=== PATIENT | male | born 1965 | race Caucasian/White ===

== ENCOUNTER → 2019-11-08 11:16 | Outpatient (BNVA) | payer OTHER, SELFPAY | PROVIDERS: Family Provider Emergency Medicine Emergency Medical Services; PCP Emergency Medicine Emergency Medical Services; Visit Provider Specialist | DX: G43.711 Chronic migraine without aura, intractable, with status migrainosus (principal) | CPT/HCPCS: 64615; J0585 ==

== ENCOUNTER → 2020-02-07 08:42 | Outpatient (BNVA) | payer OTHER, SELFPAY | PROVIDERS: Family Provider Emergency Medicine Emergency Medical Services; PCP Emergency Medicine Emergency Medical Services; Visit Provider Specialist | DX: G43.711 Chronic migraine without aura, intractable, with status migrainosus (principal) | CPT/HCPCS: 64615; J0585 ==

== ENCOUNTER → 2020-05-01 09:19 | Outpatient (BNVA) | payer OTHER, SELFPAY | PROVIDERS: Family Provider Emergency Medicine Emergency Medical Services; PCP Emergency Medicine Emergency Medical Services; Visit Provider Specialist | DX: G43.711 Chronic migraine without aura, intractable, with status migrainosus (principal) | CPT/HCPCS: 64615; J0585 ==

== ENCOUNTER → 2020-09-11 10:49 | Outpatient (BNVA) | payer OTHER, SELFPAY | PROVIDERS: Family Provider Emergency Medicine Emergency Medical Services; PCP Emergency Medicine Emergency Medical Services; Visit Provider Specialist | DX: G43.711 Chronic migraine without aura, intractable, with status migrainosus (principal) | CPT/HCPCS: 64615; J0585 ==

== ENCOUNTER → 2020-12-04 11:01 | Outpatient (BNVA) | payer OTHER, SELFPAY | PROVIDERS: Family Provider Emergency Medicine Emergency Medical Services; PCP Emergency Medicine Emergency Medical Services; Visit Provider Specialist | DX: G43.711 Chronic migraine without aura, intractable, with status migrainosus (principal) | CPT/HCPCS: 64615; J0585 ==

== ENCOUNTER → 2021-02-26 12:39 | Outpatient (BNVA) | payer OTHER, SELFPAY | PROVIDERS: Family Provider Emergency Medicine Emergency Medical Services; PCP Emergency Medicine Emergency Medical Services; Visit Provider Specialist | DX: G43.709 Chronic migraine without aura, not intractable, without status migrainosus (principal) | CPT/HCPCS: 64615; J0585 ==

== ENCOUNTER → 2021-03-25 09:18 | Outpatient (BNVA) | payer OTHER, SELFPAY | PROVIDERS: Family Provider Emergency Medicine Emergency Medical Services; PCP Emergency Medicine Emergency Medical Services; Referring Provider Emergency Medicine Emergency Medical Services; Visit Provider Specialist | DX: M19.011 Primary osteoarthritis, right shoulder (principal); M25.511 Pain in right shoulder | CPT/HCPCS: 73030 ==

== ENCOUNTER → 2021-05-21 12:08 | Outpatient (BNVA) | payer OTHER, SELFPAY | PROVIDERS: Family Provider Emergency Medicine Emergency Medical Services; PCP Emergency Medicine Emergency Medical Services; Visit Provider Specialist | DX: G43.709 Chronic migraine without aura, not intractable, without status migrainosus (principal) | CPT/HCPCS: 64615; J0585 ==

== ENCOUNTER → 2021-08-13 12:17 | Outpatient (BNVA) | payer OTHER, SELFPAY | PROVIDERS: Family Provider Emergency Medicine Emergency Medical Services; PCP Emergency Medicine Emergency Medical Services; Visit Provider Specialist | DX: G43.709 Chronic migraine without aura, not intractable, without status migrainosus (principal) | CPT/HCPCS: 64615; J0585 ==

== ENCOUNTER → 2021-12-10 13:02 | Outpatient (BNVA) | payer OTHER, SELFPAY | PROVIDERS: Family Provider Emergency Medicine Emergency Medical Services; PCP Emergency Medicine Emergency Medical Services; Visit Provider Specialist | DX: G43.711 Chronic migraine without aura, intractable, with status migrainosus (principal) | CPT/HCPCS: 64615 ==

== ENCOUNTER → 2022-02-25 09:13 | Outpatient (BNVA) | payer OTHER, SELFPAY | PROVIDERS: Family Provider Emergency Medicine Emergency Medical Services; PCP Emergency Medicine Emergency Medical Services; Visit Provider Specialist | DX: M25.511 Pain in right shoulder (principal); M25.512 Pain in left shoulder; Z71.89 Other specified counseling | CPT/HCPCS: 20610 ==

== ENCOUNTER → 2022-03-25 14:24 | Outpatient (BNVA) | payer OTHER, SELFPAY | PROVIDERS: Family Provider Emergency Medicine Emergency Medical Services; PCP Emergency Medicine Emergency Medical Services; Visit Provider Specialist | DX: G43.711 Chronic migraine without aura, intractable, with status migrainosus (principal) | CPT/HCPCS: 64615; J0585 ==

== ENCOUNTER → 2022-04-19 08:03 | Outpatient (BNVA) | payer OTHER, SELFPAY | PROVIDERS: Family Provider Emergency Medicine Emergency Medical Services; PCP Emergency Medicine Emergency Medical Services; Referring Provider Emergency Medicine Emergency Medical Services; Visit Provider Podiatrist Foot & Ankle Surgery | DX: I73.9 Peripheral vascular disease, unspecified (principal); L60.3 Nail dystrophy; L30.9 Dermatitis, unspecified; M79.671 Pain in right foot; M79.672 Pain in left foot | CPT/HCPCS: 99204 ==

== ENCOUNTER → 2022-05-27 10:13 | Outpatient (BNVA) | payer MEDICARE, OTHER, SELFPAY | PROVIDERS: Family Provider Emergency Medicine Emergency Medical Services; PCP Emergency Medicine Emergency Medical Services; Visit Provider Specialist | DX: M25.511 Pain in right shoulder (principal); M25.512 Pain in left shoulder | CPT/HCPCS: 20610; J1100; J2795; J3301 ==

== ENCOUNTER → 2022-07-01 14:05 | Outpatient (BNVA) | payer OTHER, SELFPAY | PROVIDERS: Family Provider Emergency Medicine Emergency Medical Services; PCP Emergency Medicine Emergency Medical Services; Visit Provider Specialist | DX: G43.711 Chronic migraine without aura, intractable, with status migrainosus (principal); M54.2 Cervicalgia | CPT/HCPCS: 64615; 99213; J0585 ==

== ENCOUNTER → 2022-08-09 11:36 | Outpatient (BNVA) | payer OTHER, SELFPAY | PROVIDERS: Family Provider Emergency Medicine Emergency Medical Services; PCP Emergency Medicine Emergency Medical Services; Visit Provider Podiatrist Foot & Ankle Surgery | DX: I73.9 Peripheral vascular disease, unspecified (principal); L60.3 Nail dystrophy | CPT/HCPCS: 99213 ==

== ENCOUNTER → 2022-09-09 10:03 | Outpatient (BNVA) | payer OTHER, SELFPAY | PROVIDERS: Family Provider Emergency Medicine Emergency Medical Services; PCP Emergency Medicine Emergency Medical Services; Visit Provider Specialist | DX: M19.011 Primary osteoarthritis, right shoulder (principal) | CPT/HCPCS: 20610; J1100; J2795; J3301 ==

== ENCOUNTER → 2022-09-23 13:54 | Outpatient (BNVA) | payer OTHER, SELFPAY | PROVIDERS: Family Provider Emergency Medicine Emergency Medical Services; PCP Emergency Medicine Emergency Medical Services; Visit Provider Specialist | DX: G43.711 Chronic migraine without aura, intractable, with status migrainosus (principal); M54.2 Cervicalgia | CPT/HCPCS: 64615; 95911; 99212; J0585 ==

== ENCOUNTER → 2022-12-02 11:22 | Outpatient (BNVA) | payer OTHER, SELFPAY | PROVIDERS: PCP Emergency Medicine Emergency Medical Services; Visit Provider Specialist | DX: M19.011 Primary osteoarthritis, right shoulder (principal); M19.012 Primary osteoarthritis, left shoulder; Z71.89 Other specified counseling | CPT/HCPCS: 20610; J1100; J2795; J3301 ==

== ENCOUNTER → 2022-12-16 13:54 | Outpatient (BNVA) | payer OTHER, SELFPAY | PROVIDERS: PCP Emergency Medicine Emergency Medical Services; Visit Provider Specialist | DX: G43.711 Chronic migraine without aura, intractable, with status migrainosus (principal); J45.909 Unspecified asthma, uncomplicated; I10 Essential (primary) hypertension | CPT/HCPCS: 64615; J0585 ==

== ENCOUNTER 2022-12-17 22:36 | Inpatient (IN) | payer OTHER, SELFPAY ==
[2022-12-17] VITALS (9 sets, daily range): BP systolic 48–98; BP diastolic 23–78; PULSE 105–122; RESP 21–30; TEMP 36.8; O2SAT 90–100; BMI 34.9
--- NOTE | 2022-12-17 22:41 | XRR_ITS ---
PROCEDURE INFORMATION: Exam: XR Chest Exam date and time: 12/17/2022 10:46 PM Age: 57 years old Clinical indication: Shortness of breath and other: Resp distress; Additional info: SOB TECHNIQUE: Imaging protocol: Radiologic exam of the chest. Views: 1 view. COMPARISON: DX XR chest 2V* [id number] 11/30/2022 9:35 AM FINDINGS: Lungs: See Heart/Mediastinum finding. Pleural spaces: Unremarkable. No pleural effusion. No pneumothorax. Heart/Mediastinum: Cardiomegaly and mild pulmonary vascular congestion. Bones/joints: Unremarkable. XR/XR chest 1V portable [id number] IMPRESSION: Cardiomegaly and mild pulmonary vascular congestion.
--- NOTE | 2022-12-17 22:44 | ECG_ITS ---
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 Measurements Intervals [place] Rate: 120 P: 35 NC: 148 QRS: 25 QRSD: 85 T: 18 QT: 279 QTc: 394 Interpretive Statements SINUS TACHYCARDIA ABNORMAL RHYTHM ECG Compared to ECG 05/20/2018 16:34:31 Sinus rhythm no longer present Electronically Signed On 12-19-2022 19:35:51 CDT by Roseanne De La Cruz M.D. [email or web address] [email or web address] daughters medical centerAirsynergycleveland clinic mercy hospitalPrometheus Group/store/OM/[id number]
--- NOTE | 2022-12-17 22:47 | ED_ITS ---
HPI - SOB/Dyspnea General: Chief Complaint: Shortness of Breath/Dyspnea Stated Complaint: RESP. DISTRESS Time Seen by Provider: 12/17/22 22:37 Source: patient and EMS Mode of arrival: EMS Limitations: no limitations History of Present Illness: HPI Narrative: 57-year-old male is here by EMS with shortness of breath he states he been having wheezing and difficulty breathing for the last 2 days was seen at the [facility] has been on albuterol he states today got much worse EMS arrived his pulse ox was in the low 80s he is on a nonrebreather given breathing treatment in route he is also hypotensive here he had had some vomiting blood blood in his stool he denies any pain anywhere. Associated symptoms: Reports nausea and vomiting; Deny chest pain or fever(s) Review of Systems Const: Denies: fever(s), chills, body aches or change in appetite Eyes: Denies: blurry vision or eye discomfort ENMT: Denies: throat pain or dental pain Card: Denies: chest pain Resp: Reports: dyspnea GI: Reports: nausea, vomiting and hematochezia : Denies: dysuria Musc: Denies: neck pain or back pain Skin/Breast: Denies: rash Neuro: Denies: headache(s) Psych: Denies: depression Pancho/Lymph: Denies: easy bruising All/Imm: Denies: urticaria PFSH ED PFSH: Medical History (Updated 12/18/22 @ 01:54 by Anil Fair MD) Hypertension Social History Smoking and tobacco status: never smoked Physical Exam Const: COMMON NORMALS: patient oriented x3 GENERAL APPEARANCE: in distress and ill appearing HENMT: COMMON NORMALS: normocephalic and atraumatic HEAD & SCALP: normocephalic and atraumatic Eye: COMMON NORMALS: Equal, round and reactive pupils present and EOMs intact bilaterally PUPIL: Yes Equal, round and reactive pupils present Neck/C-Spine: COMMON NORMALS: full ROM and supple Chest: COMMONS NORMALS: normal inspection of the chest and normal palpation of entire chest wall Resp: EFFORT & INSPECTION: Yes respiratory distress and Yes labored AUSCULTATION: wheezes Cardio: COMMON NORMALS: regular rhythm and No murmurs present (Cardio) RATE : tachycardic RHYTHM: regular rhythm GI: COMMON NORMALS: Normal to inspection, nondistended, normoactive bowel sounds present, Soft to palpation, non-tender and no masses PALPATION: Yes Soft to palpation OTHER: small amount of maroon blood on rectal Extremity: COMMON NORMALS: normal to inspection and full ROM Neuro: COMMON NORMALS: patient oriented x3, moves all extremities and no focal motor deficits Psych: COMMON NORMALS: mental status grossly normal, Normal thought process present and cooperative THOUGHT PROCESS: Normal thought process present Skin: COMMON NORMALS: no rashes or lesions noted and no wounds GENERAL SKIN EXAM: no rashes or lesions noted Course Vital Signs: Vital signs: Vital Signs Temperature 98.3 F 12/17/22 22:37 Pulse Rate 105 H 12/17/22 23:20 Respiratory Rate 24 H 12/17/22 23:20 Blood Pressure 91/53 12/18/22 01:41 Pulse Oximetry 98 12/17/22 23:20 Oxygen Delivery Me thod 12/17/22 22:59 Oxygen Flow Rate 35 12/17/22 22:59 Fraction of Inspir ed Oxygen 35 12/17/22 22:59 MDM - SOB/Dyspnea Medical Decision Making Patient presents in respiratory distress he is currently on high flow oxygen he was hypoxic CT does show pneumonia he is also hypotensive with elevated lactic acid patient's been given IV fluids here antibiotics and central line and started on pressors his blood pressure has improved I spoke to the hospitalist and will admit the ICU at this time. Lab Data 12/18/22 01:37 12/17/22 22:50 Labs/Radiology: Radiology Impressions Chest X-Ray 12/17/22 23:48 IMPRESSION: 1. Right central venous catheter tip in the superior vena cava. 2. Cardiomegaly and pulmonary vascular congestion. Chest/Abdomen/Pelvis CT 12/17/22 23:48 IMPRESSION: 1. Negative for pulmonary embolus. 2. Cardiomegaly and coronary artery atherosclerotic calcifications. 3. Bilateral atelectasis versus infiltrate. 4. Right-sided Port-A-Cath. IMPRESSION: 1. Gallbladder is distended with pericholecystic fluid and cholelithiasis, ultrasound could further evaluate this as findings are somewhat concerning for cholecystitis based on CT appearance. 2. Several right kidney cysts and lower pole parenchymal calcifications, similar to prior exam. 3. Prominent fluid in the small bowel without dilation suggestive of an enteritis. 4. Diverticulosis without diverticulitis. 5. Small amount of nonspecific fluid in the pelvis. COMMENTS: Consistent with the [employer]'s Incidental Findings Committee white paper (J Am Eric Radiol 2018): Any incidental renal lesion less than 1 cm or classified as too small to characterize, or any incidental cystic renal lesion characterized as simple-appearing, is likely benign. No follow-up imaging is recommended for these lesions per consensus recommendations based on imaging criteria. Laboratory Results WBC 18.9 10^3/uL (4.0-10.0) H 12/17/22 22:50 RBC 4.56 10^6/uL (4.1-5.3) 12/17/22 22:50 Hgb 15.3 g/dL (11.7-16.6) 12/17/22 22:50 Hct 46.6 % (42.0-52.0) 12/17/22 22:50 MCV 102.2 fl (80-94) H 12/17/22 22:50 MCH 33.6 pg (28.0-34.0) 12/17/22 22:50 MCHC 32.8 g/dL (30.0-36.0) 12/17/22 22:50 RDW 14.3 % (12.1-15.1) 12/17/22 22:50 Plt Count 100 10^3/cmm (130-400) L 12/17/22 22:50 MPV 11.9 fL (7.4-10.4) H 12/17/22 22:50 Neut % (Auto) 79.7 % 12/17/22 22:50 Lymph % (Auto) 8.4 % 12/17/22 22:50 [place] % (Auto) 7.9 % 12/17/22 22:50 Eos % (Auto) 2.6 % 12/17/22 22:50 Baso % (Auto) 0.5 % 12/17/22 22:50 Neut # (Auto) 15.10 10^3/uL (1.8-7.7) H 12/17/22 22:50 Lymph # (Auto) 1.6 10^3/uL (0.8-4.8) 12/17/22 22:50 [place] # (Auto) 1.5 10^3/uL (0.2-0.9) H 12/17/22 22:50 Eos # (Auto) 0.5 10^3/uL (0.0-0.8) 12/17/22 22:50 Baso # (Auto) 0.1 10^3/uL (0.0-0.1) 12/17/22 22:50 Nucleated RBC % (auto) 0 % 12/17/22 22:50 Nucleated RBCs # 0.0 /100WBC 12/17/22 22:50 PT 17.30 SECONDS (12.1-14.9) H 12/17/22 22:50 INR 1.36 (0.8-1.2) H 12/17/22 22:50 Specimen Type Venous 12/17/22 23:07 ABG pH 7.37 (7.35-7.45) 12/17/22 23:07 ABG pCO2 45.6 mmHg (35-45) H 12/17/22 23:07 ABG pO2 43.9 mmHg (80.0-100.0) L 12/17/22 23:07 ABG HCO3 26.4 mmol/L (22-26) H 12/17/22 23:07 ABG Base Excess 0.7 mmol/L (-2.0-2.0) 12/17/22 23:07 Contreras Test N/a 12/17/22 23:07 VBG pH 7.37 (7.32-7.42) 12/17/22 23:07 VBG pCO2 45.6 mmHg (41-51) 12/17/22 23:07 VBG pO2 43.9 mmHg (25-40) H 12/17/22 23:07 VBG HCO3 26.4 mmol/L (24-28) 12/17/22 23:07 VBG Base Excess 0.7 mmol/L (-3.0-3.0) 12/17/22 23:07 VBG Hematocrit 45.5 % (42-52) 12/17/22 23:07 Hematocrit 45.5 % (42-52) 12/17/22 23:07 Hgb O2 Saturation 74.4 % (95-100) L 12/17/22 23:07 Carboxyhemoglobin 2.1 %THgb (0.4-20.1) 12/17/22 23:07 Methemoglobin 0.9 % (0.4-1.5) 12/17/22 23:07 Total Hemoglobin 14.8 g/dL (14-18) 12/17/22 23:07 O2 Delivery Device Nc 12/17/22 23:07 O2 Liters/Min 35.0 % 12/17/22 23:07 FiO2 35.0 % 12/17/22 23:07 Energy Management Specialist ID Joesph 12/17/22 23:07 Sodium 137 mmol/L (136-145) 12/17/22 22:50 Potassium 4.2 mmol/L (3.5-5.1) 12/17/22 22:50 Chloride 99 mmol/L (98-107) 12/17/22 22:50 Carbon Dioxide 24 mmol/L (22-29) 12/17/22 22:50 Anion Gap 18.2 (5-19) 12/17/22 22:50 BUN 17 mg/dL (6-20) 12/17/22 22:50 Creatinine 1.6 mg/dL (0.7-1.2) H 12/17/22 22:50 GFR Calculation 44.6 mL/min (90-130) L 12/17/22 22:50 Glucose 84 mg/dL (65-115) 12/17/22 22:50 Calculated Osmolality 285 mOsm/kg (285-295) 12/17/22 22:50 Lactic Acid 6.6 mmol/L (0.5-2.2) H* 12/17/22 23:07 Calcium 8.7 mg/dL (8.5-10.5) 12/17/22 22:50 Total Bilirubin 3.7 mg/dL (0.15-1.2) H 12/17/22 22:50 AST 256 U/L (0-40) H 12/17/22 22:50 ALT 268 U/L (0-41) H 12/17/22 22:50 Alkaline Phosphatase 115 U/L (40-130) 12/17/22 22:50 Troponin T Baseline 55 ng/L (0-15) H 12/17/22 22:50 NT-Pro-B Natriuret Pep 1082 pg/mL (0-125) H 12/17/22 22:50 Total Protein 5.4 g/dL (6.6-8.7) L 12/17/22 22:50 Albumin 2.7 g/dL (3.5-5.2) L 12/17/22 22:50 Globulin 2.7 g/dL (1.3-4.6) 12/17/22 22:50 SARS-CoV-2 Ag (Rapid) negative (Negative) 12/17/22 23:01 Blood Type O Positive 12/17/22 23:07 Rho(D) Type Positive 12/17/22 23:07 Antibody Screen Not Reportable 12/17/22 23:07 PEG Antibody Screen Negative 12/17/22 23:07 EKG Data EKG 1: I personally reviewed and interpreted this EKG as follows: EKG Interpretation Date: 12/17/22 EKG interpretation time: 22:44 Interpretation: Sinus tachycardia heart rate [address] or T wave normalities QRS 85 QTc 350 Critical Care Time Critical Care Time: Critical Care Time: Yes Total Critical Care Time: 45 Attestation: The high probability of a clinically significant, sudden or life threatening deterioration of the patient's resp system(s) required my full and direct attention, intervention and personal management. The critical care time is as shown. This time is in addition to time spent performing any reported procedures but includes the following: [x] Data and vital sign review and interpretation [x] Patient assessment, examination and intervention [x] Documentation [x] Medication orders and management Discharge Plan Discharge Patient Disposition: Admitted As Inpatient Admit Provider: Raine Solorio Clinical Impression: Community acquired pneumonia, Acute respiratory failure with hypoxia, Hypotension Condition: Stable Coding Level of Care Code ED [employer] for Margaritag Yun
[2022-12-17] MEDS: ondansetron 2 mg/ML SDV 2 mL 4 MG IVP (22:58)
[2022-12-17] MEDS: albuterol 2.5 mg/3 mL Neb INHALATION (22:59)
[2022-12-17] MEDS: sodium chloride 0.9% 1,000 ML 999 ML IV (23:07)
[2022-12-17 23:08] LABS: Basophils # 0.1 10^3/uL (0.0-0.1); Basophils % 0.5 %; Eosinophils # 0.5 10^3/uL (0.0-0.8); Eosinophils % 2.6 %; Hematocrit 46.6 % (42.0-52.0); Hemoglobin 15.3 g/dL (11.7-16.6); Lymphocytes # 1.6 10^3/uL (0.8-4.8); Lymphocytes % 8.4 %; Mean Corpuscular HGB Conc 32.8 g/dL (30.0-36.0); Mean Corpuscular Hemoglobin 33.6 pg (28.0-34.0); Mean Corpuscular Volume 102.2 fl (80-94); Mean Platelet Volume 11.9 fL (7.4-10.4); Monocytes # 1.5 10^3/uL (0.2-0.9); Monocytes % 7.9 %; Neutrophils % 79.7 %; Nucleated Red Blood Cells % 0 %; Platelet Count 100 10^3/cmm (130-400); Red Blood Count 4.56 10^6/uL (4.1-5.3); Red Cell Distribution Width 14.3 % (12.1-15.1); White Blood Count 18.9 10^3/uL (4.0-10.0)
[2022-12-17 23:20] LABS: ABG PCO2 45.6 mmHg (35-45); ABG PH Result 7.37 (7.35-7.45); Arterial Blood Gas Hematocrit 45.5 % (42-52); Base Excess ABG 0.7 mmol/L (-2.0-2.0); Base Excess VBG 0.7 mmol/L (-3.0-3.0); Blood Gas Sample Type Venous; Carboxyhemoglobin 2.1 %THgb (0.4-20.1); HCO3 ABG 26.4 mmol/L (22-26); HCO3 VBG 26.4 mmol/L (24-28); HGB O2 Sat 74.4 % (95-100); Methemoglobin 0.9 % (0.4-1.5); Oxygen Device NC; PCO2 VBG 45.6 mmHg (41-51); PO2 ABG 43.9 mmHg (80.0-100.0); PO2 VBG 43.9 mmHg (25-40); Total Hemoglobin 14.8 g/dL (14-18); Venous Blood Gas Hematocrit 45.5 % (42-52); pH VBG 7.37 (7.32-7.42)
[2022-12-17 23:20] LABS: INR 1.36 (0.8-1.2)
[2022-12-17 23:35] LABS: Alanine Aminotransferase 268 U/L (0-41); Albumin Level 2.7 g/dL (3.5-5.2); Alkaline Phosphatase 115 U/L (40-130); Blood Urea Nitrogen 17 mg/dL (6-20); Calcium 8.7 mg/dL (8.5-10.5); Carbon Dioxide 24 mmol/L (22-29); Chloride 99 mmol/L (98-107); Globulin 2.7 g/dL (1.3-4.6); Glomerular Filtration Rate 44.6 mL/min (90-130); Glucose 84 mg/dL (65-115); NT Pro B Type Natriuretic Pept 1082 pg/mL (0-125); Osmolality Calculated 285 mOsm/kg (285-295); Sodium 137 mmol/L (136-145); Total Bilirubin 3.7 mg/dL (0.15-1.2); Total Protein 5.4 g/dL (6.6-8.7)
[2022-12-17 23:36] LABS: Anion Gap 18.2 (5-19); Aspartate Amino Transferase 256 U/L (0-40); Potassium 4.2 mmol/L (3.5-5.1)
[2022-12-17 23:43] LABS: SARS Covid-2 Antigen negative (Negative)
[2022-12-17 23:44] LABS: Lactic Sepsis W/Reflex 6.6 mmol/L (0.5-2.2)
[2022-12-17 23:48] LABS: Troponin(5th) Baseline 55 ng/L (0-15)
--- NOTE | 2022-12-17 23:48 | XRR_ITS ---
PROCEDURE INFORMATION: Exam: XR Chest Exam date and time: 12/17/2022 11:51 PM Age: 57 years old Clinical indication: Device placement; Chest tube; Additional info: Central line TECHNIQUE: Imaging protocol: Radiologic exam of the chest. Views: 1 view. COMPARISON: CR (CHEST, ) 12/17/2022 10:46 PM FINDINGS: Tubes, catheters and devices: Right central venous catheter tip in the superior vena cava. Lungs: See Heart/Mediastinum finding. Pleural spaces: Unremarkable. No pleural effusion. No pneumothorax. Heart/Mediastinum: Cardiomegaly and pulmonary vascular congestion. Bones/joints: Unremarkable. XR/XR chest 1V portable [id number] IMPRESSION: 1. Right central venous catheter tip in the superior vena cava. 2. Cardiomegaly and pulmonary vascular congestion.
--- NOTE | 2022-12-17 23:48 | CTR_ITS ---
PROCEDURE INFORMATION: Exam: CTA Chest With Contrast Exam date and time: 12/18/2022 1:01 AM Age: 57 years old Clinical indication: Bloating; Shortness of breath; Additional info: SOB TECHNIQUE: Imaging protocol: Computed tomographic angiography of the chest with contrast. 3D rendering (Not supervised by radiologist): MIP and/or 3D reconstructed images were created by the technologist. Radiation optimization: All CT scans at this facility use at least one of these dose optimization techniques: automated exposure control; mA and/or kV adjustment per patient size (includes targeted exams where dose is matched to clinical indication); or iterative reconstruction. Contrast material: OMNI 350; Contrast volume: 100 ml; Contrast route: INTRAVENOUS (IV); REPORTING DATA: Count of CT and Cardiac NM exams in prior 12 months: This patient has received 0 known CTs and 0 known cardiac nuclear medicine studies in the 12 months prior to the current study. COMPARISON: CR (CHEST, ) 12/17/2022 11:51 PM RADIATION DOSE METRICS: Total DLP (mGy-cm): 453.4 FINDINGS: Tubes, catheters and devices: Right-sided Port-A-Cath. Pulmonary arteries: Normal. No pulmonary emboli. Aorta: Unremarkable. No aortic aneurysm. No aortic dissection. Lungs: Bilateral atelectasis versus infiltrate. Pleural spaces: Unremarkable. No pneumothorax. No pleural effusion. Heart: Cardiomegaly and coronary artery atherosclerotic calcifications. Lymph nodes: Unremarkable. No enlarged lymph nodes. Bones/joints: Unremarkable. No acute fracture. Soft tissues: Unremarkable. PROCEDURE INFORMATION: Exam: CT Abdomen And Pelvis With Contrast Exam date and time: 12/18/2022 1:01 AM Age: 57 years old Clinical indication: Bloating; Shortness of breath; Additional info: SOB TECHNIQUE: Imaging protocol: Computed tomography of the abdomen and pelvis with contrast. Radiation optimization: All CT scans at this facility use at least one of these dose optimization techniques: automated exposure control; mA and/or kV adjustment per patient size (includes targeted exams where dose is matched to clinical indication); or iterative reconstruction. Contrast material: OMNI 350; Contrast volume: 100 ml; Contrast route: INTRAVENOUS (IV); REPORTING DATA: Count of CT and Cardiac NM exams in prior 12 months: This patient has received 0 known CTs and 0 known cardiac nuclear medicine studies in the 12 months prior to the current study. COMPARISON: CT chest abdpel w/*[id number] 05/20/2018 4:14 PM RADIATION DOSE METRICS: Total DLP (mGy-cm): 1351.2 FINDINGS: Liver: Normal. No mass. Gallbladder and bile ducts: Gallbladder is distended with pericholecystic fluid and cholelithiasis, ultrasound could further evaluate this as findings are somewhat concerning for cholecystitis based on CT appearance. Pancreas: Normal. No ductal dilation. Spleen: Normal. No splenomegaly. Adrenal glands: Normal. No mass. Kidneys and ureters: Several right kidney cysts and lower pole parenchymal calcifications, similar to prior exam. Stomach and bowel: Prominent fluid in the small bowel without dilation suggestive of an enteritis. Diverticulosis without diverticulitis. Appendix: No evidence of appendicitis. Intraperitoneal space: Small amount of nonspecific fluid in the pelvis. Vasculature: Unremarkable. No abdominal aortic aneurysm. Lymph nodes: Unremarkable. No enlarged lymph nodes. Urinary bladder: Unremarkable as visualized. Reproductive: Unremarkable as visualized. Bones/joints: Unremarkable. No acute fracture. Soft tissues: Unremarkable. CT/CT angio chest w abd pel w con IMPRESSION: 1. Negative for pulmonary embolus. 2. Cardiomegaly and coronary artery atherosclerotic calcifications. 3. Bilateral atelectasis versus infiltrate. 4. Right-sided Port-A-Cath. IMPRESSION: 1. Gallbladder is distended with pericholecystic fluid and cholelithiasis, ultrasound could further evaluate this as findings are somewhat concerning for cholecystitis based on CT appearance. 2. Several right kidney cysts and lower pole parenchymal calcifications, similar to prior exam. 3. Prominent fluid in the small bowel without dilation suggestive of an enteritis. 4. Diverticulosis without diverticulitis. 5. Small amount of nonspecific fluid in the pelvis. COMMENTS: Consistent with the [employer]'s Incidental Findings Committee white paper (J Am Eric Radiol 2018): Any incidental renal lesion less than 1 cm or classified as too small to characterize, or any incidental cystic renal lesion characterized as simple-appearing, is likely benign. No follow-up imaging is recommended for these lesions per consensus recommendations based on imaging criteria.
[2022-12-17] MEDS: iohexol 350 mg/mL 500 mL Btl (per mL) IV (23:55)
[2022-12-18] VITALS (109 sets, daily range): BP systolic 52–207; BP diastolic 41–118; PULSE 83–113; RESP 11–28; TEMP 36.8–37.2; O2SAT 80–100; BMI 35.5
[2022-12-18] MEDS: sodium chloride 0.9% 1,000 ML 999 ML IV ×2 (00:18→08:04)
[2022-12-18] MEDS: sodium chloride 0.9% 500 ML 999 ML IV ×2 (00:23→09:20)
--- NOTE | 2022-12-18 01:03 | ECG_ITS ---
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 Measurements Intervals [place] Rate: 108 P: 66 MN: 195 QRS: 17 QRSD: 99 T: 19 QT: 323 QTc: 435 Interpretive Statements SINUS TACHYCARDIA ST ELEVATION, CONSIDER INFERIOR INJURY [MARKED ST ELEVATION W/O NORMALLY INFLECTED T-WAVE IN II/aVF] ACUTE HI Compared to ECG 12/18/2022 02:42:51 ST (T wave) deviation now present Myocardial infarct finding now present Electronically Signed On 12-19-2022 23:09:29 CDT by Roseanne De La Cruz M.D. [email or web address] [email or web address].[email or web address]/[id number]
[2022-12-18 01:04] LABS: Reflex Lactate Order REFLEX LACTIC ORDERD
[2022-12-18] MEDS: piperacillin-tazobactam 3.375 GM in sodium chloride 0.9% (plus) 50 ML IV (01:20)
[2022-12-18 01:30] LABS: Troponin 5 2HR 54.36 ng/L (0-15)
--- NOTE | 2022-12-18 01:36 | P.HP_ITS ---
Providers/Chief Complaint Admitting Physician: Raine Solorio MD Primary Care Provider: Calderon Montgomery DO Chief Complaint: RESP. DISTRESS History of Present Illness Timothy Salmeron is a 57 year old male with a past medical history of chronic migraine, legally blind, possible asbestosis, presenting to the emergency room today with chief complaints of feeling ill over the past 2 days. Patient describes his symptoms as being generalized weakness, mild abdominal pain and discomfort, multiple episodes of vomiting he estimates 10-12 since onset of symptoms. States that his friend also noticed blood in his urine and stool. Patient is blind with vision limited only to light perception therefore he is unable to quantify the amount of blood. He denies any diarrhea. States that he initially did not think much of his symptoms attributing it to known gallstones. Presented to the ER today when he could barely get out of bed. He had a fever of 102 Fahrenheit at home. There has been no recent changes in his medication. Upon arrival he is found to be in shock, central line was placed and he was started on 2 pressors including vasopressin and Levophed. He was hypoxic upon admission and needed to be placed on a heated high flow currently set at 35% FiO2 at 35 L/min. He suspects he may have sleep apnea as he has multiple apneic episodes and awakenings at night but has never been formally diagnosed. 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 He takes as nee ded inhalers as prescribed by his PCP, has been having increased usage over the past few months. No diagnosed history of CAD or heart failure, however he does have chronic lower extremity edema for which she is on hydrochlorothiazide. Review of Systems General: Reports: 10 or more systems reviewed and unremarkable except in HPI and below Const: Denies: fever(s), chills or body aches Eyes: Denies: change in vision, blurry vision or photophobia ENMT: Reports: hoarseness; Denies: throat pain, enlarged tonsils, odynophagia or nasal congestion Card: Denies: chest pain, palpitations, irregular heart rhythm, edema, swelling of feet/ankles, lightheadedness, pre-syncope, dyspnea on exertion or orthopnea Resp: Denies: dyspnea, productive cough, non-productive cough, wheezing, stridor, pain on inspiration, change in phlegm color, hemoptysis or chest congestion GI: Denies: abdominal pain, nausea, vomiting, hematemesis, coffee ground em esis, dysphagia, heartburn, diarrhea, constipation, GI cramping, change in stool character, hematochezia or melena : Denies: flank pain, dysuria, urinary frequency, urinary urgency, urinary hesitancy or hematuria Musc: Denies: neck pain, back pain, extremity pain, joint swelling, joint warmth or deformity Neuro: Denies: headache(s), numbness in extremities, weakness in extremities, sensory changes, difficulty walking, frequent falls, dizziness, vertigo, behavioral changes, Slurred speech present or seizure-like activity Psych: Denies: anxiety, depression, suicidal ideation or homicidal ideation Endo: Denies: polyuria, polydipsia, tired all the time, cold intolerance or hot flashes Pancho/Lymph: Denies: easy bruising or easy bleeding Medications/Allergies Home Medications Medication Instructions Recorded Confirmed Last Taken Type amitriptyline 50 mg tablet 50 mg PO QDAY 11/08/19 12/16/22 Unknown History aspirin 81 mg tablet,delayed 81 mg PO QDAY 11/08/19 12/16/22 Unknown History release (Adult Aspirin Regimen) cholecalciferol (vitamin D3) 100 4,000 unit PO QDAY 11/08/19 12/16/22 Unknown History mcg (4,000 unit) capsule hydrochlorothiazide 25 mg tablet 25 mg PO QAM 11/08/19 12/16/22 Unknown History multivitamin 1 cap PO QAM 11/08/19 12/16/22 Unknown History onabotulinumtoxinA 100 unit 155 unit SUBCUT .Q12WKS 11/08/19 12/16/22 Unknown History solution for injection (Botox) oxycodone 5 mg capsule 5 mg PO Q8H PRN 11/08/19 12/16/22 Unknown History propranolol 160 mg capsule,24 160 mg PO QDAY 11/08/19 12/16/22 Unknown History hr,extended release ropinirole 1 mg tablet 1 mg PO QDAY 11/08/19 12/16/22 Unknown History vitamin E 1,000 unit/112 gram unit topical 11/08/19 12/16/22 Unknown History topical cream (GRx Vitamin E) erenumab-aooe 140 mg/mL 140 mg SUBCUT Q30D #1 mL 05/21/21 12/16/22 Unknown Rx subcutaneous auto-injector (Aimovig Autoinjector) galcanezumab-gnlm 120 mg/mL 120 mg SUBCUT ONCE #1 mL 12/10/21 12/16/22 Unknown Rx subcutaneous pen injector (Emgality Pen) ubrogepant 100 mg tablet (Ubrelvy) 100 mg PO ONCE PRN migraine 03/25/22 12/16/22 Unknown Rx headache #16 tabs triamcinolone acetonide 0.1 % 1 applic topical TID #80 grams 04/19/22 12/16/22 Unknown Rx topical cream doxycycline hyclate 100 mg capsule 100 mg PO BID 10 days #20 caps 05/22/22 12/16/22 Unknown Rx mupirocin 2 % topical ointment 1 applic topical TID #22 grams 05/22/22 12/16/22 Unknown Rx Compression Socks- 3 Pairs #1 ea 08/09/22 12/16/22 Unknown Rx ammonium lactate 12 % topical cream 1 applic topical DAILY #385 grams 08/09/22 12/16/22 Unknown Rx clonidine HCl 0.1 mg tablet 0.1 mg PO BID #2 tabs 09/23/22 12/16/22 Unknown Rx Allergies Allergy/AdvReac Type Severity Reaction Status Date / Time No Known Allergies Allergy Verified 12/16/22 13:55 PFSH Acute PFSH: Medical History (Updated 12/18/22 @ 06:21 by Raine Solorio MD) Asbestos exposure Hypertension Social History Smoking and tobacco status: never smoked Vitals/I&O/Wt Last Vital Signs Temp 98.3 F 12/17/22 22:37 Pulse 105 H 12/17/22 23:20 Resp 24 H 12/17/22 23:20 BP 89/55 12/18/22 01:05 Pulse Ox 98 12/17/22 23:20 O2 Del Method 12/17/22 22:59 O2 Flow Rate 35 12/17/22 22:59 FiO2 35 12/17/22 22:59 12/17/22 12/17/22 12/18/22 14:59 22:59 06:59 Intake Total 1013.97 / 1013.97 Balance 1013.97 / 1013.97 Weight last 48 hrs Weight 120.202 kg Physical Exam Narrative: General: No acute distress, AO x3 HEENT: PERRLA, pupils bilaterally equal and reactive, pallors not present Chest: Normal vesicular breath sounds, no added sounds, equal good air entry bilaterally CVS: S1-S2 regular, no murmurs, no tachycardia, no gallops, no rubs Abdomen: Soft, nontender, no organomegaly, bowel sounds present Neuro: No focal deficits, no facial deformity, AO x3, power 5/5 in all limbs Data 12/17/22 22:50 12/17/22 22:50 Micro: Microbiology 12/17/22 23:51 Blood Culture - Preliminary Blood SPECIMEN COLLECTED 12/17/22 23:25 Blood Culture - Preliminary Blood SPECIMEN COLLECTED Other data: Radiology Impressions Chest X-Ray 12/17/22 23:48 IMPRESSION: 1. Right central venous catheter tip in the superior vena cava. 2. Cardiomegaly and pulmonary vascular congestion. Chest/Abdomen/Pelvis CT 12/17/22 23:48 IMPRESSION: 1. Negative for pulmonary embolus. 2. Cardiomegaly and coronary artery atherosclerotic calcifications. 3. Bilateral atelectasis versus infiltrate. 4. Right-sided Port-A-Cath. IMPRESSION: 1. Gallbladder is distended with pericholecystic fluid and cholelithiasis, ultrasound could further evaluate this as findings are somewhat concerning for cholecystitis based on CT appearance. 2. Several right kidney cysts and lower pole parenchymal calcifications, similar to prior exam. 3. Prominent fluid in the small bowel without dilation suggestive of an enteritis. 4. Diverticulosis without diverticulitis. 5. Small amount of nonspecific fluid in the pelvis. COMMENTS: Consistent with the [employer]'s Incidental Findings Committee white paper (J Am Eric Radiol 2018): Any incidental renal lesion less than 1 cm or classified as too small to characterize, or any incidental cystic renal lesion characterized as simple-appearing, is likely benign. No follow-up imaging is recommended for these lesions per consensus recommendations based on imaging criteria. Laboratory Results WBC 18.9 10^3/uL (4.0-10.0) H 12/17/22 22:50 RBC 4.56 10^6/uL (4.1-5.3) 12/17/22 22:50 Hgb 13.5 g/dL (11.7-16.6) 12/18/22 01:37 Hct 41.9 % (42.0-52.0) L 12/18/22 01:37 MCV 102.2 fl (80-94) H 12/17/22 22:50 MCH 33.6 pg (28.0-34.0) 12/17/22 22:50 MCHC 32.8 g/dL (30.0-36.0) 12/17/22 22:50 RDW 14.3 % (12.1-15.1) 12/17/22 22:50 Plt Count 100 10^3/cmm (130-400) L 12/17/22 22:50 MPV 11.9 fL (7.4-10.4) H 12/17/22 22:50 Neut % (Auto) 79.7 % 12/17/22 22:50 Lymph % (Auto) 8.4 % 12/17/22 22:50 [place] % (Auto) 7.9 % 12/17/22 22:50 Eos % (Auto) 2.6 % 12/17/22 22:50 Baso % (Auto) 0.5 % 12/17/22 22:50 Neut # (Auto) 15.10 10^3/uL (1.8-7.7) H 12/17/22 22:50 Lymph # (Auto) 1.6 10^3/uL (0.8-4.8) 12/17/22 22:50 [place] # (Auto) 1.5 10^3/uL (0.2-0.9) H 12/17/22 22:50 Eos # (Auto) 0.5 10^3/uL (0.0-0.8) 12/17/22 22:50 Baso # (Auto) 0.1 10^3/uL (0.0-0.1) 12/17/22 22:50 Nucleated RBC % (auto) 0 % 12/17/22 22:50 Nucleated RBCs # 0.0 /100WBC 12/17/22 22:50 PT 17.30 SECONDS (12.1-14.9) H 12/17/22 22:50 INR 1.36 (0.8-1.2) H 12/17/22 22:50 Specimen Type Arterial 12/18/22 05:35 Sample Site Brachial, right 12/18/22 05:35 ABG pH 7.30 (7.35-7.45) L 12/18/22 05:35 ABG pCO2 42.8 mmHg (35-45) 12/18/22 05:35 ABG pO2 65.1 mmHg (80.0-100.0) L 12/18/22 05:35 ABG HCO3 21.1 mmol/L (22-26) L 12/18/22 05:35 ABG Base Excess -5.2 mmol/L (-2.0-2.0) L 12/18/22 05:35 Contreras Test N/a 12/18/22 05:35 VBG pH 7.37 (7.32-7.42) 12/17/22 23:07 VBG pCO2 45.6 mmHg (41-51) 12/17/22 23:07 VBG pO2 43.9 mmHg (25-40) H 12/17/22 23:07 VBG HCO3 26.4 mmol/L (24-28) 12/17/22 23:07 VBG Base Excess 0.7 mmol/L (-3.0-3.0) 12/17/22 23:07 VBG Hematocrit 45.5 % (42-52) 12/17/22 23:07 Hematocrit 44.7 % (42-52) 12/18/22 05:35 Hgb O2 Saturation 74.4 % (95-100) L 12/17/22 23:07 Carboxyhemoglobin 2.1 %THgb (0.4-20.1) 12/17/22 23:07 Methemoglobin 0.9 % (0.4-1.5) 12/17/22 23:07 Total Hemoglobin 14.8 g/dL (14-18) 12/17/22 23:07 O2 Delivery Device Hag 12/18/22 05:35 O2 Liters/Min 35.0 % 12/17/22 23:07 FiO2 30.0 % 12/18/22 05:35 Diesel Mechanic Helper ID Oliver 12/18/22 05:35 Sodium 137 mmol/L (136-145) 12/17/22 22:50 Potassium 4.2 mmol/L (3.5-5.1) 12/17/22 22:50 Chloride 99 mmol/L (98-107) 12/17/22 22:50 Carbon Dioxide 24 mmol/L (22-29) 12/17/22 22:50 Anion Gap 18.2 (5-19) 12/17/22 22:50 BUN 17 mg/dL (6-20) 12/17/22 22:50 Creatinine 1.6 mg/dL (0.7-1.2) H 12/17/22 22:50 GFR Calculation 44.6 mL/min (90-130) L 12/17/22 22:50 Glucose 84 mg/dL (65-115) 12/17/22 22:50 POC Glucose 93 mg/dL (70-110) 12/18/22 02:15 Calculated Osmolality 285 mOsm/kg (285-295) 12/17/22 22:50 Lactic Acid 6.6 mmol/L (0.5-2.2) H* 12/17/22 23:07 Lactate 5.7 mmol/L (0.5-2.2) H* 12/18/22 00:53 Calcium 8.7 mg/dL (8.5-10.5) 12/17/22 22:50 Total Bilirubin 3.7 mg/dL (0.15-1.2) H 12/17/22 22:50 AST 256 U/L (0-40) H 12/17/22 22:50 ALT 268 U/L (0-41) H 12/17/22 22:50 Alkaline Phosphatase 115 U/L (40-130) 12/17/22 22:50 Troponin T Baseline 55 ng/L (0-15) H 12/17/22 22:50 Troponin T 120 Minute 54.36 ng/L (0-15) H 12/18/22 00:53 Delta Troponin T -0.64 ABS# (0-10) L 12/18/22 00:53 Troponin T Hi Sens 6Hr 58.52 ng/L (0-15) H 12/18/22 04:00 Troponin T Hi Sens 6Hr Delta 3.52 ng/L (0-12) 12/18/22 04:00 NT-Pro-B Natriuret Pep 1082 pg/mL (0-125) H 12/17/22 22:50 Total Protein 5.4 g/dL (6.6-8.7) L 12/17/22 22:50 Albumin 2.7 g/dL (3.5-5.2) L 12/17/22 22:50 Globulin 2.7 g/dL (1.3-4.6) 12/17/22 22:50 Urine Color Yellow (Yellow) 12/18/22 01:45 Urine Appearance Hazy (CLEAR) A 12/18/22 01:45 Urine pH 7 (5-7) 12/18/22 01:45 Ur Specific [place] 1.005 (1.005-1.030) 12/18/22 01:45 Urine Protein 3+ (Negative) H 12/18/22 01:45 Urine Glucose (UA) Norm (Normal) 12/18/22 01:45 Urine Ketones Negative (Negative) 12/18/22 01:45 Urine Blood 3+ (Negative) H 12/18/22 01:45 Urine Nitrate Negative (Negative) 12/18/22 01:45 Urine Bilirubin Neg (Negative) 12/18/22 01:45 Urine Urobilinogen Neg mg/dL (Negative) 12/18/22 01:45 Ur Leukocyte Esterase Negative (Negative) 12/18/22 01:45 Urine RBC 25-40 /hpf (0-2) H 12/18/22 01:45 Urine WBC 0-4 /hpf (0-5) H 12/18/22 01:45 Ur Squamous Epith Cells 10-15 /hpf (0-5) H 12/18/22 01:45 Amorphous Sediment 2+ /hpf 12/18/22 01:45 Urine Bacteria 1+ /hpf (NONE) H 12/18/22 01:45 Hyaline Casts 0-4 /lpf H 12/18/22 01:45 Urine Mucus 1+ /hpf 12/18/22 01:45 SARS-CoV-2 Ag (Rapid) negative (Negative) 12/17/22 23:01 Blood Type O Positive 12/17/22 23:07 Rho(D) Type Positive 12/17/22 23:07 Antibody Screen Not Reportable 12/17/22 23:07 PEG Antibody Screen Negative 12/17/22 23:07 A&P Assessment and plan (1) Septic shock: Patient presenting today with shock, appearing to be septic shock as evidenced by fever, leukocytosis, elevated lactate, endorgan failure by way of hypoxia, failure to respond appropriately to IV fluids and current need for 2 pressors, cool clammy extremities. Source is under investigation currently. CT of the chest shows possible bibasilar atelectasis versus infiltrate, however minimal infiltrate does not explain his degree of hypoxia or degree of profound shock at this time. CT of the abdomen showing gallbladder which is distended with pericholecystic fluid and cholelithiasis, prominent fluid in the small bowel without dilatation suggestive of an enteritis. Patient does not have any abdominal pain this time, however given severity of shock, signs of peritonitis may be masked. He does complain of abdominal symptoms by way of epigastric pain, multiple episodes of vomiting and bloody bowel movement today. Ultrasound of the gallbladder has been ordered, currently pending for further evaluation. General surgery has been consulted. Empiric antibiotic coverage with meropenem and vancomycin Blood culture taken prior to initiation of antibiotics IV fluid normal saline 75 an hour alongside of pressors to continue. Patient does have lower extremity edema which is chronic, unknown if he has a history of CHF. Will monitor closely while on normal saline for development of any signs of pulmonary edema. Given elevated lactate, enteritis noted on CT abdomen and abdominal symptoms concern also for possible bowel ischemia. We will start him on a heparin drip for now. Closely monitor hemoglobin, currently at 15.3 UA with 3+ blood, 0-4 WBCs, 1+ bacteria, likely not a clean-catch given epitheli al cells 10-15. (2) Acute cholecystitis: As noted on CT of the abdomen. Gallbladder ultrasound is pending Deranged LFTs which may be related to acute cholecystitis versus shock liver. (3) Elevated troponin: Baseline troponin of 55, trending down at 2 and 16 hrs. 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[place] in the setting of septic shock No past history of diagnosed CAD Cardiomegaly noted on chest x-ray We will obtain echocardiogram to estimate systolic and diastolic function, any signs of regional wall motion abnormalities (4) Transaminitis: Likely related to acute cholecystitis versus shock liver Check hepatitis panel (5) Acute kidney injury: Likely related to ATN from sepsis IV fluids normal saline at 75 cc an hour Monitor urine output Place Ng catheter (6) Hypoxia: Minimal infiltrate on CT chest, Unlikely to be the source of current septic shock Hypoxia may be related to hypoperfusion Does not typically use oxygen at home. (7) Thrombocytopenia: Unknown past baseline May be related to sepsis. Monitor closely. Attestations Medical Necessity Statement*: Greater than 2 midnight admission will be needed for above defined care Critical Care Time: The high probability of a clinically significant, sudden or life threatening deterioration of the patient's [GI, cardiac, renal, respiratory] system(s) required my full and direct attention, intervention and personal management. The critical care time is as shown. This time is in addition to time spent performing any reported procedures but includes the following: [x] Data and vital sign review and interpretation [x] Patient assessment, examination and intervention [x] Documentation [x] Medication orders and management Critical Care Time (min): 80 Coding Level of Care Code Critical Care >/= 30 minutes Diagnoses Septic shock A41.9; R65.21 Acute cholecystitis K81.0 Elevated troponin R77.8 Transaminitis R74.01 Acute kidney injury N17.9 Hypoxia R09.02 Thrombocytopenia D69.6
[2022-12-18 01:37] LABS: Troponin 5 2HR Delta -0.64 ABS# (0-10)
[2022-12-18 01:42] LABS: Hematocrit 41.9 % (42.0-52.0); Hemoglobin 13.5 g/dL (11.7-16.6)
[2022-12-18 02:05] LABS: Lactate (Lactic Acid level) 5.7 mmol/L (0.5-2.2)
[2022-12-18 02:09] LABS: Add Urine Microscopic? YES; Bilirubin Urine Neg (Negative); Blood Urine 3+ (Negative); Glucose Urine UA Norm (Normal); Ketones Urine Negative (Negative); Leukocyte Esterase Urine Negative (Negative); Nitrate Urine Negative (Negative); Protein Urine 3+ (Negative); Specific Gravity, Urine 1.005 (1.005-1.030); Urine Appearance Hazy (CLEAR); Urine Color Yellow (Yellow); Urobilinogen Urine Neg (Negative); pH Urine 7 (5-7)
[2022-12-18 02:11] LABS: Add Urine Culture? No; Amorphous Sediment Urine 2+ /hpf; Bacteria Urine 1+ /hpf; Hyaline Casts Urine 0-4 /lpf; Mucus Urine 1+ /hpf; RBC Urine 25-40 /hpf (0-2); WBC Urine 0-4 /hpf (0-5)
[2022-12-18] MEDS: vancomycin 1,000 MG in sodium chloride 0.9% 250 ML 250 MG IV (02:16)
--- NOTE | 2022-12-18 02:36 | USR_ITS ---
PROCEDURE INFORMATION: Exam: US Abdomen, Limited; Right Upper Quadrant Exam date and time: 12/18/2022 4:32 AM Age: 57 years old Clinical indication: Abnormal findings; Abnormal radiologic finding of the abdomen; Radiologic exam and body structure: CT angio chest w abd pelvis; Additional info: Abd pain TECHNIQUE: Imaging protocol: Real time ultrasound of the abdomen with image documentation. Limited exam focused on the right upper quadrant. COMPARISON: US gall bladder [id number] 03/12/2019 8:03 AM FINDINGS: Liver: Normal. No masses. Gallbladder: Echogenic cholelithiasis. Gallbladder wall thickness 4 mm. Small amount of hypoechoic pericholecystic fluid. Gallbladder mildly distended. Gallbladder measures 12 cm longitudinal. Biliary ducts: Normal. No stones. No dilation. Pancreas: Cannot visualize. Suboptimal acoustic windows. Right kidney: Normal. No mass. No hydronephrosis. Portal venous: Main portal vein patent. Normal direction of blood flow. US/US gall bladder [id number] IMPRESSION: Cholelithiasis with mildly distended gallbladder also showing mild wall thickening and pericholecystic fluid. Acute cholecystitis cannot be excluded as suggested by the comparison CT abdomen and pelvis. Wall thickening and surrounding fluid could also be represent secondary findings related to pathology such as underlying cardiac disease. Clinical correlation necessary. HIDA scan would provide greater specificity.
[2022-12-18 02:46] LABS: Glucose Point of Care 93 mg/dL (70-110)
[2022-12-18 02:46] LABS: Glucose Point of Care 84 mg/dL (70-110)
--- NOTE | 2022-12-18 03:24 | PC.PHAR ---
Pharmacokinetic dosing service Date: 12/18/22 Time: 324 Objective: Patient: Timothy Salmeron Floor: ICU-12 Age: 57 yo Serum creatinine: 1.6 mg/dL Height: 73.0 Inches Weight (kg): 120.202 Diagnosis: Relevant medical/social history: Cultures and sensitivities: Other labs: Assessment: IBW (kg): 79.90 Dosing wt(kg): 120.202 Estimated Creatinine clearance (ml/min): 56.9 CRCL method: Cockcroft and Gault using ibw(default). Drug selected: Vancomycin Loading dose (mg): 0 Vd (liters): 108.2 (factor used: 0.9 L/kg) Todd (hr-1): 0.052 Half life (hrs): 13.33 Recommended dose: 1500 mg Interval: 12 hrs Infusion time (hrs): 1.5 Predicted peak (mcg/mL): 28.7 Predicted trough (mcg/mL): 16.62 Total body weight is being used for vancomycin dosing. Renal function is stable [ ] /unstable [ ] Recommendations: Give Vancomycin 1500 mg q 12 hrs with an expected Cpeak of 28.7 mcg/ml and an expected Ctrough of 16.62 mcg/ml Renal dosing of other antibiotics (review renal dosing of other medications and list guidelines here): Thank you for the consult, will continue to follow. Signature: Marcia Dale [facility]
[2022-12-18] MEDS: meropenem 1,000 MG in sodium chloride 0.9% (plus) 50 ML 100 MG IV ×2 (03:45→10:10)
[2022-12-18] MEDS: sodium chloride 0.9% 1,000 ML 75 ML IV (03:46)
[2022-12-18] MEDS: morphine 4 mg/mL SDV 1 mL 2 MG IVP ×2 (03:46→13:31)
--- NOTE | 2022-12-18 05:03 | ECG_ITS ---
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 Measurements Intervals [place] Rate: 112 P: 30 PA: 184 QRS: 15 QRSD: 104 T: 24 QT: 325 QTc: 444 Interpretive Statements SINUS TACHYCARDIA WITH OCCASIONAL SUPRAVENTRICULAR PREMATURE COMPLEXES ABNORMAL RHYTHM ECG WARNING: DATA QUALITY MAY AFFECT INTERPRETATION Compared to ECG 12/17/2022 22:44:42 No significant changes Electronically Signed On 12-19-2022 23:08:29 CDT by Roseanne De La Cruz M.D. [email or web address]
[2022-12-18 05:20] LABS: Troponin 5 6HR 58.52 ng/L (0-15)
[2022-12-18 05:24] LABS: Troponin 5 6HR Delta 3.52 ng/L (0-12)
[2022-12-18 05:48] LABS: ABG PCO2 42.8 mmHg (35-45); Arterial Blood Gas Hematocrit 44.7 % (42-52); Base Excess ABG -5.2 mmol/L (-2.0-2.0); Blood Gas Operator Identificat JB; Blood Gas Sample Site Brachial, right; Blood Gas Sample Type Arterial; HCO3 ABG 21.1 mmol/L (22-26); Oxygen Device HAG; PO2 ABG 65.1 mmHg (80.0-100.0)
--- NOTE | 2022-12-18 06:05 | USCV_ITS ---
Timothy Salmeron Age: 57 Gender: M : 1965 Exam Date: 12/18/2022 09:08 Ordering Phys: Raine Solorio MD Technologist: FAYE Exam Location: [facility] [place] Indication: nstemi, chf, cardiomegaly BP: / HR: 94 Rhythm: Sinus Technical Quality: Adequate MEASUREMENTS (Male / Female) Normal Values 2D ECHO LV Diastolic Diameter PLAX 5.7 cm 4.2 - 5.9 / 3.9 - 5.3 cm LV Systolic Diameter PLAX 4.5 cm IVS Diastolic Thickness 0.9 cm 0.6 - 1.0 / 0.6 - 0.9 cm IVS Systolic Thickness 1.3 cm LVPW Diastolic Thickness 0.9 cm 0.6 - 1.0 / 0.6 - 0.9 cm LVPW Systolic Thickness 1.5 cm LVOT Diameter 2.8 cm LV Ejection Fraction 2D Teich 40.8 % LV Ejection Fraction MOD 2C 1.3 % LV Ejection Fraction 2C AL 0.2 % LA Diameter 3.5 cm IVC Diameter 3.5 cm M-MODE Aortic Annulus Diameter 4.1 cm LA Ao Ratio MM 0.9 MV E Point Septal Separation 1.7 cm DOPPLER AV Peak Velocity 69.0 cm/s LVOT Peak Velocity 71.0 cm/s AV Area Cont Eq vti 6.0 cm squared AV Area Cont Eq pk 6.5 cm squared MV Area PHT 5.0 cm squared Mitral E to A Ratio 1.8 MV E' Velocity 38.0 cm/s Mitral E to MV E' Ratio 10.6 Mitral E to LV E' Lateral Ratio 10.3 Mitral E to LV E' Septal Ratio 10.9 TR Peak Velocity 231.3 cm/s TR Peak Gradient 21.4 mmHg TV Peak E Velocity 58.0 cm/s Right Atrial Pressure 9.0 mmHg Pulmonary Artery Systolic Pressu 30.4 mmHg PV Peak Velocity 53.0 cm/s FINDINGS Left Ventricle Diffuse hypokinesia of left ventricule with a left-ventricular ejection fraction of 41%. Right Ventricle The right ventricle is normal in size and function. Right Atrium Possibly of normal size Left Atrium Possibly of normal size Mitral Valve Mild mitral valve regurgitation. Aortic Valve No gross abnormalities noted Tricuspid Valve Tricuspid valve not well visualized. Pulmonic Valve Pulmonic valve not well visualized. Pericardium Normal pericardium without effusion. Aorta Normal ascending aorta dimension. IVC Dilated IVC with decreased respiratory variation. Estimated right atrial pressure of 15 mmHg CONCLUSIONS Diffuse hypokinesia of left ventricule with a left-ventricular ejection fraction of 41%. Left vMild mitral valve regurgitation. entricle, upper limit of normal size. The right-sided structures could not be visualized well There is no pericardial effusion. Dilated IVC with decreased respiratory variation. Estimated right atrial pressure of 15 mmHg. Technically difficult study because of the poor ultrasonic window. Dr Roseanne De La Cruz MD FACC (Electronically Signed) Final Date: 18 December 2022 15:17 S
[2022-12-18 06:29] LABS: Platelet Count 95 10^3/cmm (130-400)
[2022-12-18 07:19] LABS: Hepatitis A Antibody IgM Non-Reactive (Nonreactive); Hepatitis B Core AB, Total Non-Reactive (Nonreactive); Hepatitis B Surface Antigen Non-Reactive (Nonreactive); Hepatitis C Virus Antibody Non-Reactive (Nonreactive)
[2022-12-18] MEDS: norepinephrine 8 MG in dextrose 5 % 500 ML 76.2 MG IV (07:33)
[2022-12-18] MEDS: albumin 25 G/100 ML BAG 60 G IV ×2 (08:01→23:23)
[2022-12-18 08:24] LABS: Alanine Aminotransferase 303 U/L (0-41); Albumin Level 2.8 g/dL (3.5-5.2); Alkaline Phosphatase 97 U/L (40-130); Anion Gap 22.3 (5-19); Aspartate Amino Transferase 320 U/L (0-40); Blood Urea Nitrogen 22 mg/dL (6-20); Calcium 8.2 mg/dL (8.5-10.5); Carbon Dioxide 20 mmol/L (22-29); Chloride 99 mmol/L (98-107); Globulin 2.6 g/dL (1.3-4.6); Glomerular Filtration Rate 32.6 mL/min (90-130); Glucose 96 mg/dL (65-115); Iron 23 ug/dL (59-158); Osmolality Calculated 287 mOsm/kg (285-295); Percent Saturation 10.4 % (20-50); Potassium 4.3 mmol/L (3.5-5.1); Sodium 137 mmol/L (136-145); Total Bilirubin 3.7 mg/dL (0.15-1.2); Total Iron Binding Capacity 220 mcg/dl; Total Protein 5.4 g/dL (6.6-8.7); Unsaturated Iron Binding 197 ug/dL (112-347)
[2022-12-18 08:26] LABS: Hematocrit 44.2 % (42.0-52.0); Hemoglobin 14.2 g/dL (11.7-16.6); Mean Corpuscular HGB Conc 32.1 g/dL (30.0-36.0); Mean Corpuscular Hemoglobin 33.6 pg (28.0-34.0); Mean Corpuscular Volume 104.7 fl (80-94); Mean Platelet Volume 11.8 fL (7.4-10.4); Platelet Count 105 10^3/cmm (130-400); Red Blood Count 4.22 10^6/uL (4.1-5.3); Red Cell Distribution Width 14.9 % (12.1-15.1)
[2022-12-18 08:32] LABS: Thyroid Stimulating Hormone 1.64 uIU/mL (0.27-4.20)
[2022-12-18 09:17] LABS: Amphetamines Screen Urine Negative (Negative); Barbiturates Screen Urine Negative (Negative); Benzodiazepines Screen Urine Negative (Negative); Cocaine Screen Urine Negative (Negative); Opiate Screen Urine Positive (Negative); PCP Screen Urine Negative (Negative); THC Screen Urine Negative (Negative)
[2022-12-18 09:25] LABS: Procalcitonin 81.95 ng/mL (0-0.5)
[2022-12-18 09:34] LABS: White Blood Count 36.4 10^3/uL (4.0-10.0)
[2022-12-18 09:35] LABS: Slide Review Slide Review Perform
[2022-12-18 09:36] LABS: Absolute Segmented Neutrophil 29.1 10/cmm (1.6-7.1); Band Neutrophils Absolute 5.1 10^3/cmm (0.0-1.2); Lymphocytes 1 %; Monocytes Absolute 1.8 10^3/cmm (0.1-0.6); Segmented Neutrophils 80 %; Total Cells Counted 100 (0-100)
[2022-12-18 09:39] LABS: Absolute Neutrophil 34.2 10^3/cmm (1.4-6.5); Anisocytosis Trace; Macrocytosis Trace; Platelet Estimate Decreased (Normal)
[2022-12-18 09:40] LABS: Eosinophils 0 %; Lymphocytes Absolute 0.4 10^3/cmm (1.2-3.4)
--- NOTE | 2022-12-18 09:42 | PM.CONSULT ---
Providers/Reason For Consult Consulting Physician/Specialty*: Paco Tao, General Surgery Reason for Consult*: Septic shock with hyperbilirubinemia and gallstones Attending Physician: Aniket Duarte MD Primary Care Provider: Calderon Montgomery DO History of Present Illness History of Present Illness Timothy Salmeron is a 57 year old male with insidious onset of generalized weakness, nausea, some chest and some abdominal pain. He presented to ER last night in profound shock, was admitted to ICU, and started on wide spectrum antibiotic and two pressor agents. Initial thought was pulmonary sepsis, but subsequent evaluation has focused on cholelithiasis and possible cholangitis. Review of Systems General: Reports: 10 or more systems reviewed and unremarkable except in HPI and below Const: Reports: fever(s), chills and body aches Eyes: Reports: change in vision and other (progressive loss of vision, now only able to tell lightness/darkness) GI: Reports: abdominal pain, nausea and vomiting Medications/Allergies Home Medications Medication Instructions Recorded Confirmed Last Taken Type aspirin 81 mg tablet,delayed 81 mg PO DAILY 11/08/19 12/18/22 Unknown History release (Adult Aspirin Regimen) cholecalciferol (vitamin D3) 100 2,000 unit PO DAILY 11/08/19 12/18/22 Unknown History mcg (4,000 unit) capsule hydrochlorothiazide 25 mg tablet 25 mg PO QAM 11/08/19 12/18/22 Unknown History multivitamin 1 cap PO QAM 11/08/19 12/18/22 Unknown History onabotulinumtoxinA 100 unit 155 unit SUBCUT .Q12WKS 11/08/19 12/18/22 Unknown History solution for injection (Botox) oxycodone 5 mg capsule 5 mg PO Q6H PRN Pain 11/08/19 12/18/22 Unknown History propranolol 160 mg capsule,24 160 mg PO DAILY 11/08/19 12/18/22 Unknown History hr,extended release ropinirole 1 mg tablet 1 mg PO DAILY 11/08/19 12/18/22 Unknown History ubrogepant 100 mg tablet (Ubrelvy) 100 mg PO ONCE PRN migraine 03/25/22 12/18/22 Unknown Rx headache #16 tabs triamcinolone acetonide 0.1 % 1 applic topical TID #80 grams 04/19/22 12/18/22 Unknown Rx topical cream Compression Socks- 3 Pairs #1 ea 08/09/22 12/18/22 Unknown Rx acyclovir 200 mg capsule 400 mg PO .5 TIMES DAILY 12/18/22 12/18/22 Unknown History albuterol sulfate 90 mcg/actuation 2 puff inhalation Q6H PRN 12/18/22 12/18/22 Unknown History aerosol inhaler Shortness Of Breath amitriptyline 25 mg tablet 25 mg PO DAILY 12/18/22 12/18/22 Unknown History folic acid 1 mg tablet 1 mg PO DAILY 12/18/22 12/18/22 Unknown History vitamin E acetate 134 mg (200 268 mg PO DAILY 12/18/22 12/18/22 Unknown History unit) capsule Allergies Allergy/AdvReac Type Severity Reaction Status Date / Time No Known Allergies Allergy Verified 12/16/22 13:55 Current Medications Generic Name Dose Route Start Last Admin Trade Name Freq PRN Reason Stop Dose Admin Aspirin 81 mg 12/18/22 09:00 12/18/22 08:21 Aspirin 81 Mg Ec Tablet PO Not Given DAILY INDIA Norepinephrine Bitartrate 4 mg 254 mls @ 0 mls/hr 12/17/22 23:15 12/18/22 07:34 / Dextrose IV Infused .Q0M INDIA Titration Protocol Per Protocol Vasopressin 100 unit/ Sodium 100 mls @ 0 mls/hr 12/18/22 02:15 12/18/22 09:21 Chloride IV 0.08 unit/min .Q0M INDIA 4.8 mls/hr Titration Protocol Per Protocol Sodium Chloride 1,000 mls @ 150 mls/hr 12/18/22 02:30 12/18/22 09:21 Sodium Chloride 0.9% IV Infused .Q6H40M INDIA Infusion Meropenem 1,000 mg/ Sodium 50 mls @ 100 mls/hr 12/18/22 02:30 12/18/22 04:33 Chloride IV Infused Q8H [facility] Infusion Protocol Norepinephrine Bitartrate 8 mg 508 mls @ 0 mls/hr 12/18/22 07:00 12/18/22 07:33 / Dextrose IV 20 mcg/min .Q0M INDIA 76.2 mls/hr Administration Protocol Per Protocol Albumin Human 25 g in 100 mls @ 60 mls/hr 12/18/22 08:00 12/18/22 08:01 Albumin IV 60 mls/hr Q8H INDIA Administration Morphine Sulfate 2 mg 12/18/22 02:28 12/18/22 03:46 Morphine 4 Mg/Ml Sdv 1 Ml IVP 2 mg Q4H PRN Administration SEVERE PAIN Pantoprazole Sodium 40 mg 12/18/22 09:00 12/18/22 08:[address] 40 Mg Tablet PO Not Given DAILY IND[facility] PFSH Acute PFSH: Medical History (Updated 12/19/22 @ 16:18 by Aniket Duarte MD) Asbestos exposure Chronic migraine without aura, intractable, with status migrainosus Hypertension Legally blind Social History Smoking and tobacco status: never smoked Vitals/I&O/Wt Last Vital Signs Temp 98.3 F 12/18/22 08:15 Pulse 106 H 12/18/22 08:15 Resp 15 12/18/22 08:15 BP 80/60 12/18/22 08:15 Pulse Ox 91 12/18/22 07:30 O2 Del Method 12/18/22 08:15 O2 Flow Rate 30 12/18/22 08:15 FiO2 40 12/18/22 08:15 12/17/22 12/18/22 12/18/22 22:59 06:59 14:59 Intake Total 3106.24 / 3106.24 2262.04 / 2262.04 Balance 3106.24 / 3106.24 2262.04 / 2262.04 Weight last 48 hrs Weight 269 lb 8 oz Weight 265 lb Physical Exam Const: COMMON NORMALS: alert and well nourished HENMT: COMMON NORMALS: normocephalic and hearing grossly normal bilaterally HEAD & SCALP: normocephalic Eye: SCLERA: scleral abnormal (subtle scleral icterus) Neck/C-Spine: COMMON NORMALS: supple and no meningeal signs Lymph: LYMPHATIC: no lymphadenopathy noted Chest: COMMONS NORMALS: normal inspection of the chest Resp: AUSCULTATION: rales Cardio: COMMON NORMALS: regular rate and No murmurs present (Cardio) RATE: regular rate GI: OTHER: Abdomen tender to palpation in RUQ but without rebound tenderness or peritoneal irritation Neuro: SENSORIUM/ORIENTATION: Yes alert MENINGEAL SIGNS: Yes no meningeal signs Psych: COMMON NORMALS: mental status grossly normal, cooperative and activity/motor behavior normal Urinary Catheter Management: Ng: Cath Placed During This Visit: yes Urinary Catheter Date of Insertion: 12/18/22 Urinary Catheter Time of Insertion: 07:15 Data 12/18/22 08:12 12/18/22 04:00 Micro: Microbiology 12/17/22 23:51 Blood Culture - Preliminary Blood SPECIMEN COLLECTED 12/17/22 23:25 Blood Culture - Preliminary Blood SPECIMEN COLLECTED A&P Assessment and plan (1) Septic shock: (2) Acute cholecystitis: Plan Acute septic shock with known gallstones and hyperbilirubinemia. Plan for laparoscopy with cholecystostomy or cholecystectomy based on acute finding and accessibilty to common duct. Consult Attestations Medical Necessity Statement: Procedure is necessary to address unrelenting deterioration of patient's clinical status in the face of optimum medical management at the present time. Time Spent in Patient Care: Greater than 35 minutes I spend over an hour conferring with patient, family, primary physician and anesthesia staff re: considerations for alternative sources for sepsis and approach to addressing gallbladder and common duct issues. Coding Level of Care Code Acute Code for Chg Fwd Diagnoses Septic shock A41.9; R65.21 Acute cholecystitis K81.0 Time Spent (min) 35
[2022-12-18] MEDS: sodium bicarbonate 8.4% 1 mEq/mL 50mL Syr 150 MEQ IVP ×2 (09:56→15:06)
[2022-12-18] MEDS: sodium chloride 0.9% 1,000 ML 150 ML IV (10:22)
--- NOTE | 2022-12-18 10:30 | PC.NURSE ---
1025 to OR via bed accompanied by OR staff and anesthesia. Family at bedside. Patient AAOx4, 0/10 pain, BP 80s/60 on Levo and vasopressin (see mar). Patient placed on 15LNRB for transport.
[2022-12-18 10:51] LABS: Adenovirus Not Detected (NOT DETECT); Chlamydia Pneumoniae Not Detected (NOT DETECT); Coronavirus 229E,HKU1,NL63,OC4 Not Detected (NOT DETECT); Human Metapneumovirus Not Detected (NOT DETECT); Human Rhinovirus/Enterovirus Not Detected (NOT DETECT); Influenza A Not Detected (NOT DETECT); Influenza A H1 Not Detected (NOT DETECT); Influenza A H1-2009 Not Detected (NOT DETECT); Influenza A H3 Not Detected (NOT DETECT); Influenza B Not Detected (NOT DETECT); Mycoplasma Pneumoniae Not Detected (NOT DETECT); Parainfluenza Virus Type 1 Not Detected (NOT DETECT); Parainfluenza Virus Type 2 Not Detected (NOT DETECT); Parainfluenza Virus Type 3 Not Detected (NOT DETECT); Parainfluenza Virus Type 4 Not Detected (NOT DETECT); Respiratory Syncytial Virus A Not Detected (NOT DETECT); Respiratory Syncytial Virus B Not Detected (NOT DETECT); SARS-COV-2 Not Detected (NOT DETECT)
[2022-12-18 11:27] LABS: Results from Genmark
--- NOTE | 2022-12-18 11:39 | ANES.PREANE2 ---
Pre-Anesthetic Assessment Height/Weight: Height 1.85 m Weight 122.243 kg Temp Pulse Resp BP Pulse Ox O2 Del Method O2 Flow Rate 98.3 F 95 20 H 89/61 90 40 12/18/22 08:15 12/18/22 10:15 12/18/22 10:15 12/18/22 10:15 12/18/22 10:15 12/18/22 10:15 12/18/22 10:15 FiO2 50 12/18/22 10:15 Preop Diagnosis: Ascending cholangitis Laparascopic Cholecystectomy Familial anesthetic complications: None Last intake: > 8hrs Social No alcohol and No tobacco Exam alert, oriented x 3, clear to auscultation bilaterally and regular rate & rhythm Airway Mallampati: Class IV Dentition: other (multiple missing) Pulmonary high flow oxygen CV/HEM elevated troponin Metabolic Morbid Obesity sepsis Anesthetic Plan ASA status: 4E Anesthesia: General Risk of > 500 ml blood loss (7ml/kg in children): No Medications/Allergies Home Medications Medication Instructions Recorded Confirmed Last Taken Type aspirin 81 mg tablet,delayed 81 mg PO DAILY 11/08/19 12/18/22 Unknown History release (Adult Aspirin Regimen) cholecalciferol (vitamin D3) 100 2,000 unit PO DAILY 11/08/19 12/18/22 Unknown History mcg (4,000 unit) capsule hydrochlorothiazide 25 mg tablet 25 mg PO QAM 11/08/19 12/18/22 Unknown History multivitamin 1 cap PO QAM 11/08/19 12/18/22 Unknown History onabotulinumtoxinA 100 unit 155 unit SUBCUT .Q12WKS 11/08/19 12/18/22 Unknown History solution for injection (Botox) oxycodone 5 mg capsule 5 mg PO Q6H PRN Pain 11/08/19 12/18/22 Unknown History propranolol 160 mg capsule,24 160 mg PO DAILY 11/08/19 12/18/22 Unknown History hr,extended release ropinirole 1 mg tablet 1 mg PO DAILY 11/08/19 12/18/22 Unknown History ubrogepant 100 mg tablet (Ubrelvy) 100 mg PO ONCE PRN migraine 03/25/22 12/18/22 Unknown Rx headache #16 tabs triamcinolone acetonide 0.1 % 1 applic topical TID #80 grams 04/19/22 12/18/22 Unknown Rx topical cream Compression Socks- 3 Pairs #1 ea 08/09/22 12/18/22 Unknown Rx acyclovir 200 mg capsule 400 mg PO .5 TIMES DAILY 12/18/22 12/18/22 Unknown History albuterol sulfate 90 mcg/actuation 2 puff inhalation Q6H PRN 12/18/22 12/18/22 Unknown History aerosol inhaler Shortness Of Breath amitriptyline 25 mg tablet 25 mg PO DAILY 12/18/22 12/18/22 Unknown History folic acid 1 mg tablet 1 mg PO DAILY 12/18/22 12/18/22 Unknown History vitamin E acetate 134 mg (200 268 mg PO DAILY 12/18/22 12/18/22 Unknown History unit) capsule Allergies Allergy/AdvReac Type Severity Reaction Status Date / Time No Known Allergies Allergy Verified 12/16/22 13:55 Current Medications Generic Name Dose Route Start Last Admin Trade Name Freq PRN Reason Stop Dose Admin Aspirin 81 mg 12/18/22 09:00 12/18/22 08:21 Aspirin 81 Mg Ec Tablet PO Not Given DAILY INDIA Norepinephrine Bitartrate 4 mg 254 mls @ 0 mls/hr 12/17/22 23:15 12/18/22 07:34 / Dextrose IV Infused .Q0M INDIA Titration Protocol Per Protocol Vasopressin 100 unit/ Sodium 100 mls @ 0 mls/hr 12/18/22 02:15 12/18/22 10:23 Chloride IV 0.1 unit/min .Q0M INDIA 6 mls/hr Titration Protocol Per Protocol Sodium Chloride 1,000 mls @ 150 mls/hr 12/18/22 02:30 12/18/22 10:22 Sodium Chloride 0.9% IV 150 mls/hr .Q6H40M INDIA Administration Meropenem 1,000 mg/ Sodium 50 mls @ 100 mls/hr 12/18/22 02:30 12/18/22 10:10 Chloride IV 100 mls/hr Q8H INDIA Administration Protocol Norepinephrine Bitartrate 8 mg 508 mls @ 0 mls/hr 12/18/22 07:00 12/18/22 07:33 / Dextrose IV 20 mcg/min .Q0M INDIA 76.2 mls/hr Administration Protocol Per Protocol Albumin Human 25 g in 100 mls @ 60 mls/hr 12/18/22 08:00 12/18/22 10:11 Albumin IV Infused Q8H [facility] Infusion Morphine Sulfate 2 mg 12/18/22 02:28 12/18/22 03:46 Morphine 4 Mg/Ml Sdv 1 Ml IVP 2 mg Q4H PRN Administration SEVERE PAIN Pantoprazole Sodium 40 mg 12/18/22 09:00 12/18/22 08:[address] 40 Mg Tablet PO Not Given DAILY [facility]IA PFSH Anesthesia Medical History (Updated 12/18/22 @ 06:21 by Raine Solorio MD) Asbestos exposure Hypertension Social History Smoking and tobacco status: never smoked Data Anesthesia 12/18/22 08:12 12/18/22 04:00 Short CBC 12/17/22 12/18/22 12/18/22 Range/Units 22:50 01:37 06:23 WBC 18.9 H (4.0-10.0) 10^3/uL Hgb 15.3 13.5 (11.7-16.6) g/dL Hct 46.6 41.9 L (42.0-52.0) % MCV 102.2 H (80-94) fl Plt Count 100 L 95 L (130-400) 10^3/cmm Neut % (Auto) 79.7 % Neut # (Auto) 15.10 H (1.8-7.7) 10^3/uL 12/18/22 Range/Units 08:12 WBC 36.4 H* (4.0-10.0) 10^3/uL Hgb 14.2 (11.7-16.6) g/dL Hct 44.2 (42.0-52.0) % MCV 104.7 H (80-94) fl Plt Count 105 L (130-400) 10^3/cmm Neut % (Auto) % Neut # (Auto) (1.8-7.7) 10^3/uL BMP 12/17/22 12/18/22 22:50 04:00 Sodium 137 137 Potassium 4.2 4.3 Chloride 99 99 Carbon Dioxide 24 20 L BUN 17 22 H Creatinine 1.6 H 2.1 H Glucose 84 96 Calcium 8.7 8.2 L Cardiac Enzymes 12/17/22 12/17/22 12/18/22 Range/Units 22:50 22:50 00:53 Troponin T Baseline 55 H (0-15) ng/L Troponin T 120 Minute 54.36 H (0-15) ng/L Delta Troponin T -0.64 L (0-10) ABS# Troponin T Hi Sens 6Hr (0-15) ng/L Troponin T Hi Sens 6Hr Delta (0-12) ng/L NT-Pro-B Natriuret Pep 1082 H (0-125) pg/mL 12/18/22 Range/Units 04:00 Troponin T Baseline (0-15) ng/L Troponin T 120 Minute (0-15) ng/L Delta Troponin T (0-10) ABS# Troponin T Hi Sens 6Hr 58.52 H (0-15) ng/L Troponin T Hi Sens 6Hr Delta 3.52 (0-12) ng/L NT-Pro-B Natriuret Pep (0-125) pg/mL Liver Function 12/17/22 12/18/22 Range/Units 22:50 04:00 Total Bilirubin 3.7 H 3.7 H (0.15-1.2) mg/dL AST 256 H 320 H (0-40) U/L ALT 268 H 303 H (0-41) U/L Alkaline Phosphatase 115 97 (40-130) U/L Albumin 2.7 L 2.8 L (3.5-5.2) g/dL Urine 12/18/22 Range/Units 01:45 Urine Color Yellow (Yellow) Urine Appearance Hazy A (CLEAR) Urine pH 7 (5-7) Ur Specific [place] 1.005 (1.005-1.030) Urine Protein 3+ H (Negative) Urine Glucose (UA) Norm (Normal) Urine Ketones Negative (Negative) Urine Nitrate Negative (Negative) Urine Bilirubin Neg (Negative) Ur Leukocyte Esterase Negative (Negative) Urine RBC 25-40 H (0-2) /hpf Urine WBC 0-4 H (0-5) /hpf Blood Bank 12/17/22 23:07 Blood Type O Positive Rho(D) Type Positive Antibody Screen Not Reportable COVID Results 12/17/22 12/18/22 23:01 08:35 Coronavirus 229E (PCR) Not detected SARS-CoV-2 (PCR) Not detected SARS-CoV-2 Ag (Rapid) negative Coags 12/17/22 22:50 PT 17.30 H INR 1.36 H ABG 12/17/22 12/18/22 23:07 05:35 Specimen Type Venous Arterial Sample Site Brachial, right ABG pH 7.37 7.30 L ABG pCO2 45.6 H 42.8 ABG pO2 43.9 L 65.1 L ABG HCO3 26.4 H 21.1 L ABG Base Excess 0.7 -5.2 L O2 Delivery Device [facility] O2 Liters/Min 35.0 FiO2 35.0 30.0 Microbiology 12/17/22 23:51 Blood Culture - Preliminary Blood SPECIMEN COLLECTED 12/17/22 23:25 Blood Culture - Preliminary Blood SPECIMEN COLLECTED Cardiac Studies: No Data to Display
--- NOTE | 2022-12-18 12:27 | PM.OP2 ---
Brief Operative Note Date of procedure: 12/18/22 Pre-op diagnosis: Biliary sepsis Post-op diagnosis: other (Hepatic cirrhosis of uncertain etiology; no acute infection) Procedure Done: Laparoscopic cholecystostomy Surgeon: Paco Tao Estimated blood loss (mL): 50 Complications: Persistent hypotension refractory to pressor support (levophed and vasopressin) Post-op Plan: Pressor and ventilator support Condition: critical Disposition: ICU Coding Level of Care Code Acute Code for Chg Fwd Time Spent (min) 60 Comment Patient critically ill, discussed with family
--- NOTE | 2022-12-18 12:30 | PM.OP ---
Operative Report Date of procedure: December 18, 2022 Pre-op diagnosis: Preop Diagnosis Ascending cholangitis Post-op diagnosis: other Post-op diagnosis: Cirrhosis of liver of uncertain etiology Post-op findings: Generalized cirrhosis without acute infectious process in the abdomen Procedure done: Laparoscopic cholecystostomy Implants: Sanders catheter to gallbladder lumen, exteriorized Specimens removed/disposition: None; request was made for liver biopsy, but needle could not be secured, and patient's medical status was acutely deteriorating under laparoscopy Surgeon: Paco Tao Anesthesia: General Estimated blood loss (mL): 50 IV fluids (mL): 1,200 Complications: Persistent hypotension refractory to levophed and vasopressin throughout the procedure Findings: Cirrhosis of liver diffusely with no infectious processes noted. Brief History: 57 y.o. male with progressive hypotension and leukocytosis; concern raised as to whether gallbladder/common duct was the primary source of symptoms. Procedure: Procedure explained to patient who agreed and accepted risks. He was taken to OR, and general anesthesia was induced. 3-phase WHO checklist was used for time-out. He was prepped and draped in usual fashion in supine position. Under satisfactory general anesthesia, verress needle was inserted in the LUQ of the abdomen and abdomen was insufflated with CO2 to 15mm Hg. [address] and then 10 mm port was placed in RUQ, and 5 mm port was placed in midline. Attention was directed to RUQ of abdomen. Liver was noted to be extensively cirrhotic with micronodularity throughout. Gallbladder was identified and aspirated. Bile was dark yellow with no evidence of biliary obstruction (clear bile) or purulence. No acute inflammation was noted in the area of the gallbladder or the area of the claudia hepatis. Due to the inability to completely visualize the common duct, I elected to proceed with cholecystotomy, by introducing sanders catheter into the RUQ of the abdomen, aspirating the gallbladder, incising the fundus, and inserting the sanders catheter into the gallbaldder lumen. It was secured at the serosa with pursestring 3-0 vicryl suture, and transfixed to the skin with 2-0 ethibond. Abdomen was then evaluated laparoscopically, and no other areas of acute inflammation were identified. Due to the patient's ongoing deterioration of blood pressure, we elected to terminate the procedure without liver biopsy but photographs were obtained. All instruments were removed, and port sites were closed with maren. Patient was transferred back to ICU intubated and on pressors, and family advised that he was critically ill.
[2022-12-18 12:47] LABS: ABG PCO2 49.3 mmHg (35-45); Alveolar-Arterial Oxygen Gradi 76.7 mmHg (5-10); Arterial Blood Gas Hematocrit 40.8 % (42-52); Base Excess ABG -11.1 mmol/L (-2.0-2.0); Blood Gas Operator Identificat CAK; Blood Gas Sample Site ALINE; Blood Gas Sample Type Arterial; Blood Gas Tidal Volume 0.55; Carboxyhemoglobin 1.6 %THgb (0.4-20.1); HCO3 ABG 17.6 mmol/L (22-26); Ionized Calcium Level - ABG 1.1 mmol/L (1.1-1.4); Methemoglobin 0.7 % (0.4-1.5); Oxygen Device VENT; Oxygen Saturation ABG 82.9; PO2 ABG 57.9 mmHg (80.0-100.0); Potassium Level - ABG 4.6 mmol/L (3.5-5.0); Total Hemoglobin 13.3 g/dL (14-18)
[2022-12-18 12:48] LABS: ABG PH Result 7.16 (7.35-7.45)
[2022-12-18] MEDS: hydrocortisone 100 mg/2 mL SDV IVP ×2 (13:36→19:40)
[2022-12-18] MEDS: octreotide 500 MCG in sodium chloride 0.9% (100 ml) 100 ML 10.1 MCG IV (13:50)
[2022-12-18] MEDS: pantoprazole 40 mg SDV IVP (14:16)
--- NOTE | 2022-12-18 14:38 | XRR_ITS ---
PROCEDURE INFORMATION: Exam: XR Chest Exam date and time: 12/18/2022 2:46 PM Age: 57 years old Clinical indication: Device placement; Other: Et and ng placement; Additional info: Ett, ng placement TECHNIQUE: Imaging protocol: Radiologic exam of the chest. Views: 1 view. COMPARISON: CR (CHEST, ) 12/17/2022 11:51 PM FINDINGS: Tubes, catheters and devices: There is an NG tube coursing below the field of view into the stomach. There is an ET tube situated 2 cm above the megan. There is a right central line terminating within the SVC above the cavoatrial junction. Lungs: There is scattered airspace disease most pronounced at the left lung base. Pleural spaces: Unremarkable. No pleural effusion. No pneumothorax. Heart/Mediastinum: Heart is mildly enlarged. Bones/joints: Unremarkable for age. XR/XR chest 1V portable [id number] IMPRESSION: Tubes and lines as discussed above.
[2022-12-18 14:57] LABS: Hepatitis A Antibody IgM Non-Reactive (Nonreactive); Hepatitis B Core AB, Total Non-Reactive (Nonreactive); Hepatitis B Surface AB 144.1 (11.5-1000); Hepatitis B Surface Antigen Non-Reactive (Nonreactive); Hepatitis C Virus Antibody Non-Reactive (Nonreactive)
[2022-12-18] MEDS: vancomycin 1,500 MG/300 ML PIGGYBACK 200 MG IV (15:05)
--- NOTE | 2022-12-18 15:37 | PC.NURSE ---
Patient made comfort measures at this time. Patient deteriorating rapidly. Vaso, levo, epi gtts are maxed per protocol. IVP epi being given. Family at bedside.
[2022-12-18] MEDS: EPINEPHrine 2.5 MG in sodium chloride 0.9% 250 ML 90.9 MG IV ×2 (16:31→20:11)
[2022-12-18] MEDS: norepinephrine 8 MG in dextrose 5 % 500 ML 114.3 MG IV ×2 (16:34→21:14)
--- NOTE | 2022-12-18 17:05 | P.PN_ITS ---
Subjective Subjective: H&P and labs appreciated. Patient admitted last night for abdominal pain on heated high flow and in septic shock. CT abdomen pelvis done earlier at night also concerning for negative pulmonary embolism, cardiomegaly, distended gallbladder with Regalado cholecystic fluid and cholelithiasis, right kidney cysts and possible enteritis. Gallbladder ultrasound was done which was concerning for cholelithiasis with mildly distended gallbladder with mild wall thickening pericholecystic fluid. On examination seen with patient's spouse at bedside patient was awake and alert, legally blind on 2 pressors with Levophed at 20 and vaso at 0.4 with mean arterial pressure of around 60, minimal urine output in Ng bag on heated high flow of 30 L 30%. Patient received full septic bolus of IV fluids after which. Continued at 125 cc/h. Repeat labs were ordered and he was found to have worsening acute kidney injury, leukocytosis and lactic acidosis. Given septic shock with concerns for cholecystitis care were discussed in detail with patient and patient's spouse at bedside and surgeon and they were all agreeable for high risk possible cholecystectomy. Postoperatively patient was on 3 pressors including vaso-, levo, epi which are all maxed out, intubated and sedated with mean arterial pressure running between 55-60, minimal urine output. Repeat labs were ordered but were never reported. ABGs were done which were concerning for worsening metabolic acidosis. Patient received sodium bicarb pushes up to 350 mEq after which she was switched to normal saline with sodium bicarb. Postoperatively there was a concern for possible liver cirrhosis leading up to hepatorenal syndrome for which she was continued with IV albumin and started on octreotide. He was continued on IV fluids, IV antibiotics. Even on 3 pressors patient continued to have patient continued to have worsening shock with mean arterial pressure dropping down to 40s and patient having recurrent episodes of bradycardia requiring multiple pushes of epinephrine. Multiple goals of care discussion with patient's spouse/DPOA, children and multiple family members at bedside. After multiple rounds about treatment as patient was not improving family decided to go ahead with comfort measures. Vitals/I&O/Wt Last Vital Signs Temp 98.3 F 12/18/22 08:15 Pulse 99 12/18/22 14:30 Resp 22 H 12/18/22 15:38 BP 76/62 12/18/22 14:30 Pulse Ox 93 03/11/23 15:38 O2 Del Method 12/18/22 14:30 O2 Flow Rate 40 12/18/22 10:15 FiO2 100 12/18/22 15:38 12/18/22 12/18/22 12/18/22 06:59 14:59 22:59 Intake Total 3106.24 / 3106.24 3425.542 / 3425.542 Balance 3106.24 / 3106.24 3425.542 / 3425.542 Weight last 48 hrs Weight 122.243 kg Weight 120.202 kg Physical Exam Narrative: General: Intubated sedated, morbidly obese HEENT: PERRLA, pupils bilaterally equal and reactive Chest: Normal vesicular breath sounds, decreased air entry on lower lung brewer CVS: S1-S2 regular, no murmurs, no tachycardia, no gallops, no rubs Abdomen: Soft, postoperative drain present with bilious fluid, no organomegaly, bowel sounds present Neuro: Intubated, sedated Urinary Catheter Management: Ng: Cath Placed During This Visit: yes Urinary Catheter Date of Insertion: 12/18/22 Urinary Catheter Time of Insertion: 07:15 Data 12/18/22 08:12 12/18/22 04:00 Micro: Microbiology 12/18/22 08:10 MRSA Culture - Final Nose 12/17/22 23:51 Blood Culture - Preliminary Blood SPECIMEN COLLECTED 12/17/22 23:25 Blood Culture - Preliminary Blood SPECIMEN COLLECTED A&P Assessment and plan (1) Legally blind: (2) Septic shock: (3) Acute cholecystitis: (4) Transaminitis: (5) Metabolic acidosis: (6) Acute kidney injury: (7) Hyperbilirubinemia: (8) Elevated lactic acid level: Plan 57-year-old gentleman who is morbidly obese with past medical history of being legally blind was admitted to the hospital in septic shock with CT imaging consistent for acute cholecystitis with elevated lactate and acute kidney injury. Patient underwent OR where he underwent cholecystectomy and was found to have liver cirrhosis. Postoperatively patient continued to worsen requiring multiple pressors without any improvement and worsening metabolic acidosis. Blood work done repeat showed worsening of leukocytosis with white volume 26,000 , ABG showing a pH of 7.16 with worsening of metabolic acidosis and repeat CMP showing high in the metabolic acidosis worsening of SULEMAN though lactate remained high and stable. He was found to have elevated procalcitonin of around 82. TSH and urinalysis within normal limits. He was started on maxed out Levophed, vasopressin and epinephrine which were titrated to keep mean artery pressure was 65 unsuccessfully. He was started on IV steroids with hydrocortisone of 100 mg every 6 hourly. He is also started on IV albumin and octreotide with concerns for hepatorenal syndrome. Along with sodium bicarb infusion at 100 cc/h. He was started empirically on IV vancomycin and meropenem. Blood cultures and urine cultures were taken and still pending. Urine drug screen was negative. Respiratory viral panel was checked and was negative. Even with multiple medications patient's blood pressure continued to worsen with episodes of bradycardia for which she required pushes of epinephrine after which his heart rate and blood pressure stabilized for a short while and had repeat episodes again. Patient had the cycles twice or thrice but never had asystole or chest compressions. As patient's shock continued to worsen even on maxed out 3 pressors without any improvement further goals of care discussions were done with the family members who discussed and went ahead with comfort measures status only. Family wants patient to remain as comfortable as possible. Attestations Medical Necessity Statement*: Requires further hospitalization for management of septic shock requiring multiple pressors, mechanical ventilation with comfort measures status Coding Level of Care Code Critical Care >/= 30 minutes Critical care time (in minutes): 100 The high probability of a clinically significant, sudden or life threatening deterioration, as referenced in this documentation, required my full and direct attention, intervention and personal management. The critical care time shown is in addition to time spent performing any reported separately billable procedures and includes the following: [x] Data and vital sign review and interpretation [x ] Patient assessment, examination and intervention [x] Medication orders and management [x] Patient/Family updates as able [x] Care Coordination and Documentation. Diagnoses Legally blind H54.8 Septic shock A41.9; R65.21 Acute cholecystitis K81.0 Transaminitis R74.01 Metabolic acidosis E87.20 Acute kidney injury N17.9 Hyperbilirubinemia E80.6 Elevated lactic acid level R79.89
--- NOTE | 2022-12-18 19:24 | PC.NURSE ---
Spoke to Melisa with [facility] to report patient's family request to withdraw care.
[2022-12-18 19:45] LABS: ABG PCO2 40.3 mmHg (35-45); ABG PH Result 7.27 (7.35-7.45); Alveolar-Arterial Oxygen Gradi 76.4 mmHg (5-10); Arterial Blood Gas Hematocrit 44.8 % (42-52); Base Excess ABG -8.3 mmol/L (-2.0-2.0); Blood Gas Allen Test Pos; Blood Gas Sample Site Radial, left; Blood Gas Sample Type Arterial; Blood Gas Tidal Volume 0.55; Carboxyhemoglobin 1.2 %THgb (0.4-20.1); HCO3 ABG 18.3 mmol/L (22-26); HGB O2 Sat 90.1 % (95-100); Methemoglobin 0.7 % (0.4-1.5); Oxygen Device VENT; Oxygen Saturation ABG 91.8; PO2 ABG 67.4 mmHg (80.0-100.0); Potassium Level - ABG 6.4 mmol/L (3.5-5.0); Total Hemoglobin 14.6 g/dL (14-18)
--- NOTE | 2022-12-18 20:05 | PC.NURSE ---
REBECA Kimey Sumit [phone] called unit to get information on patient. She will call unit back with determination.
--- NOTE | 2022-12-18 20:07 | PC.NURSE ---
1529 patient deteriorating rapidly, becoming carlito in the 40s, pressure via art line rapidly dropping. Cold extremities without palp pulses. Carotid pulse present. Dr. Duarte called and notified and immediately responded to floor. Order for epi push and bicarb amp from crash cart to be given. Patient responded to epi push. Family at bedside. No asystole, no cpr, no code blue. Dr. Duarte talked to family to discuss code status and plan of care.
[2022-12-18] MEDS: FUROsemide 10 mg/mL SDV 10mL 100 MG IVP (20:11)
[2022-12-18 20:13] LABS: Basophils # 0.1 10^3/uL (0.0-0.1); Basophils % 0.4 %; Hematocrit 44.4 % (42.0-52.0); Hemoglobin 14.2 g/dL (11.7-16.6); Lymphocytes # 1.4 10^3/uL (0.8-4.8); Mean Corpuscular Hemoglobin 34.1 pg (28.0-34.0); Mean Corpuscular Volume 106.7 fl (80-94); Mean Platelet Volume 12.5 fL (7.4-10.4); Monocytes # 2.5 10^3/uL (0.2-0.9); Monocytes % 7.3 %; Neutrophils # 28.68 10^3/uL (1.8-7.7); Nucleated Red Blood Cells % 0 %; Platelet Count 108 10^3/cmm (130-400); Red Blood Count 4.16 10^6/uL (4.1-5.3); Red Cell Distribution Width 15.8 % (12.1-15.1)
[2022-12-18] MEDS: insulin regular-human 10 UNIT in SYRINGE 1 EACH IVP (20:14)
[2022-12-18] MEDS: dextrose 50% syringe 50 mL IVP (20:14)
[2022-12-18] MEDS: sodium bicarbonate 8.4% 1 mEq/mL 50mL Syr 50 MEQ IVP (20:23)
--- NOTE | 2022-12-18 20:27 | XRR_ITS ---
PROCEDURE INFORMATION: Exam: XR Chest Exam date and time: 12/18/2022 9:23 PM Age: 57 years old Clinical indication: Other: Daily intubated PT; Patient HX: Septic TECHNIQUE: Imaging protocol: Radiologic exam of the chest. Views: 1 view. COMPARISON: CR (CHEST, ) 12/18/2022 2:46 PM FINDINGS: Tubes, catheters and devices: Endotracheal tube tip in place 3 cm above the megan. Right central venous catheter in the superior vena cava. Enteric tube tip below the diaphragm over the gastric bubble. Lungs: Patchy bilateral hilar infiltrates suspected. Mild pulmonary vascular congestion. Pleural spaces: Unremarkable. No pleural effusion. No pneumothorax. Heart/Mediastinum: Cardiomegaly. Bones/joints: Unremarkable. XR/XR chest 1V portable [id number] IMPRESSION: 1. Endotracheal tube tip in place 3 cm above the megan. 2. Right central venous catheter in the superior vena cava. 3. Enteric tube tip below the diaphragm over the gastric bubble. 4. Cardiomegaly. 5. Patchy bilateral hilar infiltrates suspected. 6. Mild pulmonary vascular congestion.
[2022-12-18 20:35] LABS: Alkaline Phosphatase 77 U/L (40-130); Blood Urea Nitrogen 35 mg/dL (6-20); Calcium 7.4 mg/dL (8.5-10.5); Carbon Dioxide 16 mmol/L (22-29); Chloride 96 mmol/L (98-107); Glomerular Filtration Rate 25.5 mL/min (90-130); Glucose 235 mg/dL (65-115); Osmolality Calculated 294 mOsm/kg (285-295); Sodium 134 mmol/L (136-145); Total Bilirubin 3.4 mg/dL (0.15-1.2)
[2022-12-18 20:51] LABS: Alanine Aminotransferase 292 U/L (0-41); Anion Gap 28.7 (5-19); Aspartate Amino Transferase 304 U/L (0-40)
[2022-12-18 20:52] LABS: Lactate (Lactic Acid level) 6.4 mmol/L (0.5-2.2); Potassium 6.7 mmol/L (3.5-5.1)
[2022-12-18] MEDS: metroNIDAZOLE IV 500 MG/100 ML PREMIX 100 MG IV (20:54)
[2022-12-18 20:59] LABS: Slide Review Slide Review Perform
[2022-12-18] MEDS: insulin regular-human 250 UNIT in sodium chloride 0.9% 250 ML IV (21:34)
[2022-12-18] MEDS: calcium gluconate 0.9% NaCL 1 GM/50 ML PREMIX IV ×2 (22:01→22:27)
[2022-12-18] MEDS: heparin 5,000 unit/mL INJ 1 mL 5000 UNIT SUBCUT (22:11)
[2022-12-18] MEDS: amitriptyline 25 mg Tablet 50 MG PO (22:14)
--- NOTE | 2022-12-18 23:18 | PC.NURSE ---
1939 -- Dr. Thomas called for an update on patient and ordered a stat ABG. 1954 -- Called results of ABG to Dr. Thomas, new orders given for insulin and D50, lasix, continue pressors and antibiotics. If patient codes do not code patient or add any more pressors. 2009 -- Dr. Thomas to bedside to speak with patients family and plan of care of patient. 2124 -- Notified Dr. Thomas of critial labs, new orders given. Insulin drip started.
--- NOTE | 2022-12-18 23:22 | P.PNCC_ITS ---
Critical Care Event Note Patient recement around 8 PM. Family at bedside. Patient's blood pressure on 3 pressors including vasopressin, epinephrine, Levophed which is already maxed out seems to be improving with systolic in 100s and mean around 70. Given improvement in the blood pressures ABG was done which showed a pH of 7.26 which had improved from 7.17 before. Goals of care discussions were again done at bedside with patient's spouse, son. We discussed patient seems to be more stable now than what he was in the evening. We did discuss that patient still remains critically sick and chances of survival are very low but it would be important to try treatment for now as a last ditch effort. Family verbalized understanding and are thankful. CODE STAT US changed to DNR/DNI. Plan to treat for now but if patient decompensates again or code plan would be to put him on comfort measures and let nature take its own course. We also discussed that given poor hemodynamics with requirement of 3 high-dose pressors patient is not a good candidate for hemodialysis. Family verbalizes understanding. Check CBC, CMP, lactate. ABG showing hyperkalemia so we will treat with D50 and 10 units insulin. On review of labs patient seems to be having high anion gap metabolic acidosis with hyperkalemia with stable SULEMAN on CKD. Patient continues to remain oliguric. Plan: High concern for DKA. Start patient on insulin drip with target blood sugars of 1 50-200. If blood sugars drop below 150 we will switch to D5 with 150 mg of sodium bicarb at 150 cc/h. IV Lasix 100 mg one-time. Repeat BMP every 4 hours. IV calcium gluconate 2 g stat. Continue with IV vancomycin and meropenem. Empirically start patient on IV Flagyl 5 mg 3 times daily. The high probability of a clinically significant, sudden or life threatening deterioration of the patient's [cardiac, renal, goals of care, pulmonary] system(s) required my full and direct attention, intervention and personal management. The critical care time is as shown. This time is in addition to time spent performing any reported procedures but includes the following: [x] Data and vital sign review and interpretation [x] Patient assessment, examination and intervention [x] Documentation [x] Medication orders and management Critical Care Time Code activated: No Critical Care Time (min): 60 Coding Level of Care Code Critical Care Other Coding Information Prolonged care (total time indicated above or notated here) (Overall time since morning spent on patient's critical care over 150 minutes.)
[2022-12-18 23:34] LABS: Blood Urea Nitrogen 38 mg/dL (6-20); Calcium 7.7 mg/dL (8.5-10.5); Carbon Dioxide 18 mmol/L (22-29); Chloride 96 mmol/L (98-107); Glomerular Filtration Rate 22.5 mL/min (90-130); Glucose 258 mg/dL (65-115); Osmolality Calculated 300 mOsm/kg (285-295); Sodium 136 mmol/L (136-145)
[2022-12-18 23:37] LABS: Glucose Point of Care 217 mg/dL (70-110)
[2022-12-18 23:37] LABS: Glucose Point of Care 228 mg/dL (70-110)
[2022-12-18 23:37] LABS: Glucose Point of Care 224 mg/dL (70-110)
[2022-12-18 23:44] LABS: Anion Gap 27.3 (5-19); Potassium 5.3 mmol/L (3.5-5.1)
[2022-12-18] MEDS: EPINEPHrine 2.5 MG in sodium chloride 0.9% 250 ML 36.36 MG IV (23:49)
[2022-12-19] VITALS (90 sets, daily range): BP systolic 97–162; BP diastolic 55–92; PULSE 73–114; RESP 20–26; TEMP 36.7–38.3; O2SAT 86–94
[2022-12-19] MEDS: hydrocortisone 100 mg/2 mL SDV IVP ×4 (00:53→19:37)
[2022-12-19] MEDS: pantoprazole 40 mg SDV IVP ×2 (00:53→12:52)
[2022-12-19] MEDS: vancomycin 1,500 MG/300 ML PIGGYBACK 150 MG IV (01:13)
[2022-12-19 01:57] LABS: Glucose Point of Care 180 mg/dL (70-110)
[2022-12-19 01:57] LABS: Glucose Point of Care 204 mg/dL (70-110)
[2022-12-19 01:57] LABS: Glucose Point of Care 240 mg/dL (70-110)
[2022-12-19] MEDS: meropenem 1,000 MG in sodium chloride 0.9% (plus) 50 ML 100 MG IV ×3 (03:04→22:23)
[2022-12-19 03:58] LABS: ABG PCO2 32.9 mmHg (35-45); ABG PH Result 7.37 (7.35-7.45); Alveolar-Arterial Oxygen Gradi 76.7 mmHg (5-10); Arterial Blood Gas Hematocrit 37.5 % (42-52); Base Excess ABG -5.7 mmol/L (-2.0-2.0); Blood Gas Allen Test Pos; Blood Gas Sample Site Radial, right; Blood Gas Sample Type Arterial; Blood Gas Tidal Volume 0.55; HCO3 ABG 18.8 mmol/L (22-26); HGB O2 Sat 93.7 % (95-100); Ionized Calcium Level - ABG 0.8 mmol/L (1.1-1.4); Methemoglobin 0.8 % (0.4-1.5); Oxygen Device VENT; Oxygen Saturation ABG 95.5; Potassium Level - ABG 4.7 mmol/L (3.5-5.0); Total Hemoglobin 12.2 g/dL (14-18)
[2022-12-19] MEDS: metroNIDAZOLE IV 500 MG/100 ML PREMIX 100 MG IV ×3 (04:27→20:39)
[2022-12-19] MEDS: norepinephrine 8 MG in dextrose 5 % 500 ML 60 MG IV (04:34)
[2022-12-19 05:37] LABS: Basophils # 0.1 10^3/uL (0.0-0.1); Basophils % 0.3 %; Eosinophils # 0.2 10^3/uL (0.0-0.8); Eosinophils % 0.8 %; Hematocrit 41.1 % (42.0-52.0); Hemoglobin 13.2 g/dL (11.7-16.6); Lymphocytes # 1.2 10^3/uL (0.8-4.8); Mean Corpuscular HGB Conc 32.1 g/dL (30.0-36.0); Mean Corpuscular Hemoglobin 34.6 pg (28.0-34.0); Mean Corpuscular Volume 107.6 fl (80-94); Mean Platelet Volume 12.4 fL (7.4-10.4); Monocytes # 2.2 10^3/uL (0.2-0.9); Monocytes % 7.6 %; Neutrophils # 22.74 10^3/uL (1.8-7.7); Neutrophils % 78.9 %; Nucleated Red Blood Cells % 0 %; Platelet Count 93 10^3/cmm (130-400); Red Blood Count 3.82 10^6/uL (4.1-5.3); Red Cell Distribution Width 15.9 % (12.1-15.1); White Blood Count 28.8 10^3/uL (4.0-10.0)
[2022-12-19 06:06] LABS: Alanine Aminotransferase 341 U/L (0-41); Albumin Level 2.9 g/dL (3.5-5.2); Alkaline Phosphatase 73 U/L (40-130); Anion Gap 23.9 (5-19); Aspartate Amino Transferase 315 U/L (0-40); Blood Urea Nitrogen 38 mg/dL (6-20); Calcium 7.1 mg/dL (8.5-10.5); Carbon Dioxide 22 mmol/L (22-29); Chloride 97 mmol/L (98-107); Chol HDL Ratio 1.72 mg/dL (1.0-5.00); Cholesterol 105 mg/dL (0-200); Globulin 2.7 g/dL (1.3-4.6); Glomerular Filtration Rate 20.1 mL/min (90-130); Glucose 180 mg/dL (65-115); HDL Cholesterol 61 mg/dL (60-100); LDL Cholesterol Calculated 26 mg/dL (50-129); Osmolality Calculated 300 mOsm/kg (285-295); Potassium 4.9 mmol/L (3.5-5.1); Sodium 138 mmol/L (136-145); Total Bilirubin 3.2 mg/dL (0.15-1.2); Total Protein 5.6 g/dL (6.6-8.7); Triglycerides 90 mg/dL (0-150); VLDL Cholestrol Calculation 18 mg/dL (0-30)
[2022-12-19] MEDS: octreotide 500 MCG in sodium chloride 0.9% (100 ml) 100 ML 10.1 MCG IV ×2 (06:17→17:25)
[2022-12-19] MEDS: morphine 4 mg/mL SDV 1 mL 2 MG IVP (06:22)
[2022-12-19 06:27] LABS: Estmated Average Glucose 126
[2022-12-19] MEDS: albumin 25 G/100 ML BAG 60 G IV ×2 (07:40→17:17)
--- NOTE | 2022-12-19 07:48 | PM.PN ---
Subjective Subjective: [Ventilator dependent] Vitals/I&O/Wt Last Vital Signs Temp 100.9 F H 12/19/22 04:00 Pulse 101 H 12/19/22 06:03 Resp 22 H 12/19/22 07:29 BP 99/57 12/19/22 06:03 Pulse Ox 89 L 12/19/22 07:29 O2 Del Method 12/19/22 06:03 O2 Flow Rate 40 12/18/22 10:15 FiO2 100 12/19/22 07:30 12/18/22 12/19/22 12/19/22 21:59 06:59 14:59 Intake Total 239.37 / 239.37 Output Total Balance 239.37 / 239.37 Weight last 48 hrs Weight 399 lb Weight 269 lb 8 oz Weight 265 lb Physical Exam Narrative: No change in abdominal status Urinary Catheter Management: Ng: Cath Placed During This Visit: yes Reason for Continuing Indwelling Catheter: Accurate Measurement of Urinary Output in Critically Ill Patients Urinary Catheter Date of Insertion: 12/18/22 Urinary Catheter Time of Insertion: 07:15 Data 12/19/22 05:20 12/19/22 05:20 Micro: Microbiology 12/17/22 23:25 Blood Culture - Preliminary Blood NEGATIVE TO DATE 12/17/22 23:51 Blood Culture - Preliminary Blood NEGATIVE TO DATE 12/18/22 08:10 MRSA Culture - Final Nose A&P Assessment and plan (1) Hepatorenal syndrome: (2) Liver cirrhosis secondary to CALLES: (3) Hyperbilirubinemia: Plan Against all odds, this patient continues to survive on ventilator. Defer further management to his primary physicians. Attestations Medical Necessity Statement*: Ventilator-dependent in ICU Coding Level of Care Code Acute Code for Chg Fwd Straight Forward/Low Time for a total of 5 minutes, includes reviewing past or interval history and updating patient/family/other support Diagnoses Hepatorenal syndrome K76.7 Liver cirrhosis secondary to CALLES K75.81; K74.60 Hyperbilirubinemia E80.6
--- NOTE | 2022-12-19 08:38 | PC.NURSE ---
Epi gtt 3 mcg/min
[2022-12-19] MEDS: sodium chloride 0.9% 1,000 ML 150 ML IV (08:47)
[2022-12-19] MEDS: aspirin 81 mg EC Tablet PO (08:47)
[2022-12-19] MEDS: heparin 5,000 unit/mL INJ 1 mL 5000 UNIT SUBCUT ×2 (08:47→21:25)
[2022-12-19] MEDS: EPINEPHrine 2.5 MG in sodium chloride 0.9% 250 ML 12.12 MG IV (09:33)
[2022-12-19] MEDS: FLEXIBLE CONTAINER IV (09:36)
[2022-12-19] MEDS: BUMETANIDE IV (09:36)
--- NOTE | 2022-12-19 10:05 | PC.NURSE ---
[facility] Update given. To call them back if neuro decline, withdrawal care, or transfer to another facility.
[2022-12-19 11:30] LABS: Procalcitonin > 100.00 ng/mL (0-0.5)
[2022-12-19 11:34] LABS: Basophils # 0.1 10^3/uL (0.0-0.1); Basophils % 0.3 %; Hematocrit 40.6 % (42.0-52.0); Hemoglobin 13.1 g/dL (11.7-16.6); Lymphocytes # 1.2 10^3/uL (0.8-4.8); Lymphocytes % 4.4 %; Mean Corpuscular HGB Conc 32.3 g/dL (30.0-36.0); Mean Corpuscular Hemoglobin 33.4 pg (28.0-34.0); Mean Corpuscular Volume 103.6 fl (80-94); Mean Platelet Volume 12.5 fL (7.4-10.4); Monocytes # 2.4 10^3/uL (0.2-0.9); Neutrophils # 20.36 10^3/uL (1.8-7.7); Nucleated Red Blood Cells % 0 %; Platelet Count 91 10^3/cmm (130-400); Red Blood Count 3.92 10^6/uL (4.1-5.3); Red Cell Distribution Width 15.7 % (12.1-15.1); White Blood Count 26.2 10^3/uL (4.0-10.0)
[2022-12-19 11:43] LABS: Neutrophils % 86.3 %
[2022-12-19 12:14] LABS: Lactate (Lactic Acid level) 3.1 mmol/L (0.5-2.2)
[2022-12-19 12:16] LABS: Glucose Point of Care 120 mg/dL (70-110)
[2022-12-19 12:16] LABS: Glucose Point of Care 134 mg/dL (70-110)
[2022-12-19 12:16] LABS: Glucose Point of Care 218 mg/dL (70-110)
[2022-12-19 12:16] LABS: Glucose Point of Care 159 mg/dL (70-110)
[2022-12-19 12:16] LABS: Glucose Point of Care 140 mg/dL (70-110)
[2022-12-19 12:16] LABS: Anion Gap 23.9 (5-19); Blood Urea Nitrogen 48 mg/dL (6-20); Calcium 7.5 mg/dL (8.5-10.5); Carbon Dioxide 22 mmol/L (22-29); Chloride 96 mmol/L (98-107); Glomerular Filtration Rate 21.6 mL/min (90-130); Glucose 149 mg/dL (65-115); Osmolality Calculated 299 mOsm/kg (285-295); Potassium 4.9 mmol/L (3.5-5.1); Sodium 137 mmol/L (136-145)
[2022-12-19 12:16] LABS: Glucose Point of Care 132 mg/dL (70-110)
[2022-12-19 12:16] LABS: Glucose Point of Care 187 mg/dL (70-110)
[2022-12-19 12:16] LABS: Glucose Point of Care 198 mg/dL (70-110)
[2022-12-19] MEDS: norepinephrine 8 MG in dextrose 5 % 500 ML 45.72 MG IV (13:13)
--- NOTE | 2022-12-19 16:15 | PM.PN ---
Subjective Subjective: Patient seen multiple times during the day today. Multiple goals of care discussion with family members at bedside. Overnight because of improvement in the blood pressures after discussion with family members patient's CODE STATUS was changed to DNR/DNI and was taken off comfort measures and was continued on aggressive medical treatment. Today morning at first patient was on 3 pressors including Levophed of 18, vaso of 1.8, epinephrine. During the day epinephrine was weaned off and resolved was being weaned off as well with Levophed coming down to 12 keeping mean arterial pressure over 65. Overnight patient was started on insulin drip with concerns for DKA given high anion gap metabolic acidosis. He was continued with IV fluids and bicarb drip along with multiple treatment for hyperkalemia. Hyperkalemia and metabolic acidosis resolved. In morning because of poor urine output he was started on Bumex drip after which patient put out around 3-1/2 L of urine and Bumex drip was changed to twice daily dosing. Patient continues to remain on high ventilator settings. Lactate is trending down. Has remained afebrile with Tmax of 99.3 Fahrenheit. Vitals/I&O/Wt Last Vital Signs Temp 99.3 F 12/19/22 14:15 Pulse 88 12/19/22 14:15 Resp 22 H 12/19/22 14:15 BP 119/75 12/19/22 14:15 Pulse Ox 90 12/19/22 14:15 O2 Del Method 12/19/22 14:15 O2 Flow Rate 40 12/18/22 10:15 FiO2 100 12/19/22 14:15 12/19/22 12/19/22 12/19/22 06:59 14:59 22:59 Intake Total 1642.204 / 2845.529 8215.36 / 2698.564 Output Total 2650 / 2650 1625 / 4275 Balance -1007.796 / -1007.796 -568.64 / -1576.436 Weight last 48 hrs Weight 180.983 kg Weight 122.243 kg Weight 120.202 kg Physical Exam Narrative: General: Intubated sedated, morbidly obese, on multiple pressors HEENT: PERRLA, pupils bilaterally equal and reactive Chest: Normal vesicular breath sounds, decreased air entry on lower lung brewer CVS: S1-S2 regular, no murmurs, no tachycardia, no gallops, no rubs Abdomen: Soft, postoperative drain present with bilious fluid, no organomegaly, bowel sounds present Neuro: Intubated, sedated Urinary Catheter Management: Ng: Cath Placed During This Visit: yes Reason for Continuing Indwelling Catheter: Accurate Measurement of Urinary Output in Critically Ill Patients Urinary Catheter Date of Insertion: 12/18/22 Urinary Catheter Time of Insertion: 07:15 Data 12/19/22 11:06 12/19/22 11:06 Micro: Microbiology 12/19/22 07:40 Gram Stain - Final Sputum - Endotracheal Tube Aspirate 12/17/22 23:25 Blood Culture - Preliminary Blood NEGATIVE TO DATE 12/17/22 23:51 Blood Culture - Preliminary Blood NEGATIVE TO DATE 12/18/22 08:10 MRSA Culture - Final Nose A&P Assessment and plan (1) Septic shock: (2) Respiratory failure with hypoxia: (3) Hepatorenal syndrome: (4) Acute kidney injury: (5) High anion gap metabolic acidosis: (6) DKA (diabetic ketoacidosis): (7) Congestive heart failure: (8) Transaminitis: (9) Hyperbilirubinemia: (10) Elevated lactic acid level: (11) Acute cholecystitis: (12) Liver cirrhosis secondary to CALLES: (13) Legally blind: Plan 57-year-old gentleman who is morbidly obese with past medical history of being legally blind was admitted to the hospital in septic shock with CT imaging consistent for acute cholecystitis with elevated lactate and acute kidney injury. Patient underwent OR where he underwent cholecystectomy and was found to have liver cirrhosis. Septic shock with hypoxia: Source of infection possible acute cholecystitis versus cholangitis. CT chest on admission negative for consolidation. CT abdomen negative for bowel ischemia. Respiratory viral panel negative. Wean off pressors keeping mean artery pressure 65. Patient at one point was on be on maximum dose of Levophed, vasopressin, epinephrine. Pressors weaned off and currently patient is on 15 of Levophed and vasopressin has been weaned off. Follow-up blood culture. MRSA swab negative. Sputum culture pending. For now continue with empiric vancomycin, meropenem and Flagyl. Continue with stress dose steroids with hydrocortisone 100 mg IV every 6 hourly. Will plan to wean off hydrocortisone once patient become more stable within next 24 to 48 hours. Hypoxic respiratory failure most likely in setting of congestive heart failure. Continue with diuresis as above. Keeping saturation over 88%. Liver cirrhosis: With concerns for hepatorenal syndrome. Patient is not alcoholic. Hepatitis panel negative. Most likely CALLES. Transaminitis/hyperbilirubinemia: Continue with IV albumin every 8 hourly along with octreotide drip. Patient is on Levophed. Keep mean arterial pressure around 70. Monitor BMP. Acute kidney injury: Monitor BMP every 4 hourly. Strict input output charting. Switch from Bumex drip to Bumex 1 mg every 8 hourly. Repeat urinalysis, urine lites, urine creatinine and eosinophils. High anion gap metabolic acidosis: Most likely in setting of lactic acidosis, acute kidney injury and possible diabetic ketoacidosis. Resolved. Bicarb drip stopped. Monitor ABG daily. Diabetic ketoacidosis: Continue with insulin drip. Check blood sugar every hourly. Target blood sugar between 1 50-200. Continue with normal saline. Once blood sugar less than 200 can switch over to D5 NS. Lactic acidosis: Trending down. Went as high as 6.6. Trending down to 3.1. Congestive heart failure: EF of 41% with global LV hypokinesia. If patient improves can plan for ischemic work-up. Monitor fluid status. Troponin elevation: Troponin elevated only to 55. With delta of 3 and 6 hours. Most likely in setting of type II MT given septic shock. Sedation: Continue sedation with fentanyl and Versed Glycemic control: Insulin drip. A1c 6. Nutrition: NPO. CODE STATUS: Discussed in detail with the patient /DPOA and children at bedside. We discussed that patient remains critically sick even though he is improving. We discussed that there is still a high chance of mortality. CODE STATUS changed to DNR/DNI. Family is agreeable. Family is also agreeable that if patient does not do well today we will switch him back to comfort measures. PUD prophylaxis: Protonix 40 mg IV every 12 hourly DVT prophylaxis: Heparin 5000 every 12 hourly Discharge planning: Depending on clinical development going forward Continue with care at ICU level. Multiple goals of care discussion done with family at bedside. We discussed that patient is improving very gradually but remains critically sick. We discussed that patient can have cardiac arrest at any time given multiple pressors requirement, oliguria. Family verbalized understanding and was thankful for the efforts of the team. Family also brought up regarding potential transfer to [place] or [facility]. We discussed that currently patient is too unstable to be transferred anywhere but even on transfer what he needs is medical treatment which he is getting over here for but his family still wants him to be transferred it would be at the request and we are more than happy to work on transfer of their wishes so. For now family wants to continue treatment at the hospital and would not want to transfer. We did discuss if and when patient improves on discharge he will need to follow-up with a telegraph office telephone clerk for further work-up and management of CALLES and with a possible solution lead. This documentation was created by [employer] flight attendant/inflight supervisor software. Every effort was made to ensure accuracy of flight attendant/inflight supervisor. Any obvious errors or omissions should be clarified with the author of the document. Attestations Medical Necessity Statement*: Requires further hospitalization for management of septic shock with hypoxia requiring multiple pressors, ventilator dependent, hepatorenal syndrome with acute kidney injury and high gap metabolic acidosis, DKA Coding Level of Care Code Critical Care >/= 30 minutes Critical care time (in minutes): 140 The high probability of a clinically significant, sudden or life threatening deterioration, as referenced in this documentation, required my full and direct attention, intervention and personal management. The critical care time shown is in addition to time spent performing any reported separately billable procedures and includes the following: [x] Data and vital sign review and interpretation [x] Patient assessment, examination and intervention [x] Medication orders and management [x] Patient/Family updates as able [x] Care Coordination and Documentation. Other Coding Information Prolonged care (total time indicated above or notated here) Diagnoses Septic shock A41.9; R65.21 Respiratory failure with hypoxia J96.91 Hepatorenal syndrome K76.7 Acute kidney injury N17.9 High anion gap metabolic acidosis E87.29 DKA (diabetic ketoacidosis) E11.10 Congestive heart failure I50.9 Transaminitis R74.01 Hyperbilirubinemia E80.6 Elevated lactic acid level R79.89 Acute cholecystitis K81.0 Liver cirrhosis secondary to CALLES K75.81; K74.60 Legally blind H54.8
[2022-12-19 17:04] LABS: Vancomycin Trough 22.4 ug/mL (10-15)
[2022-12-19 17:05] LABS: Anion Gap 22.2 (5-19); Blood Urea Nitrogen 49 mg/dL (6-20); Calcium 7.3 mg/dL (8.5-10.5); Carbon Dioxide 25 mmol/L (22-29); Chloride 94 mmol/L (98-107); Creatinine Clr Calc Pharmacy 48.9451; Glomerular Filtration Rate 23.4 mL/min (90-130); Glucose 192 mg/dL (65-115); Lipase 10 U/L (13-60); Osmolality Calculated 302 mOsm/kg (285-295); Potassium 4.2 mmol/L (3.5-5.1); Sodium 137 mmol/L (136-145)
[2022-12-19] MEDS: sodium chloride 0.9% 1,000 ML 100 ML IV (17:17)
[2022-12-19] MEDS: bumetanide 0.25 mg/mL SDV 4 mL 1 MG IVP (18:05)
[2022-12-19 18:30] LABS: Glucose Point of Care 187 mg/dL (70-110)
[2022-12-19 18:30] LABS: Glucose Point of Care 182 mg/dL (70-110)
[2022-12-19 18:30] LABS: Glucose Point of Care 158 mg/dL (70-110)
[2022-12-19 18:30] LABS: Glucose Point of Care 150 mg/dL (70-110)
[2022-12-19 18:30] LABS: Glucose Point of Care 161 mg/dL (70-110)
[2022-12-19 18:30] LABS: Glucose Point of Care 167 mg/dL (70-110)
[2022-12-19 18:30] LABS: Potassium, Radom Urine 18 mmol/L; Urine Creatinine 22 mg/dL (39-259); Urine Random Chloride 105 mmol/L; Urine Random Sodium 104 mmol/L
[2022-12-19 18:46] LABS: Add Urine Microscopic? YES; Bilirubin Urine Neg (Negative); Blood Urine 2+ (Negative); Glucose Urine UA Norm (Normal); Ketones Urine Negative (Negative); Leukocyte Esterase Urine Negative (Negative); Nitrate Urine Negative (Negative); Protein Urine Neg (Negative); Specific Gravity, Urine 1.015 (1.005-1.030); Urine Appearance Clear (CLEAR); Urine Color Yellow (Yellow); Urobilinogen Urine Norm (Negative); pH Urine 5 (5-7)
[2022-12-19 18:50] LABS: RBC Urine 0-4 /hpf (0-2)
[2022-12-19 18:52] LABS: Add Urine Culture? No; Bacteria Urine TRACE /hpf
[2022-12-19 18:53] LABS: Mucus Urine TRACE /hpf
[2022-12-19 19:56] LABS: Glucose Point of Care 202 mg/dL (70-110)
[2022-12-19] MEDS: magnesium sulfate premix 2 GM/50 ML PIGGYBACK IV (20:14)
[2022-12-19 20:15] LABS: Eosinophil Urine No Eosinophils Seen
[2022-12-19 20:16] LABS: Urine Eosinophil Count 0 (0-0)
[2022-12-19 21:17] LABS: Glucose Point of Care 175 mg/dL (70-110)
[2022-12-19] MEDS: amitriptyline 25 mg Tablet 50 MG PO (21:26)
[2022-12-19 22:16] LABS: Anion Gap 21.9 (5-19); Blood Urea Nitrogen 50 mg/dL (6-20); Calcium 7.2 mg/dL (8.5-10.5); Carbon Dioxide 26 mmol/L (22-29); Chloride 91 mmol/L (98-107); Glomerular Filtration Rate 24.4 mL/min (90-130); Glucose 187 mg/dL (65-115); Magnesium 2.1 mg/dL (1.7-2.3); Osmolality Calculated 298 mOsm/kg (285-295); Potassium 3.9 mmol/L (3.5-5.1); Sodium 135 mmol/L (136-145)
[2022-12-20] VITALS (104 sets, daily range): BP systolic 97–157; BP diastolic 47–104; PULSE 61–100; RESP 16–22; TEMP 36.1–36.7; O2SAT 79–97
[2022-12-20] MEDS: albumin 25 G/100 ML BAG 60 G IV ×4 (00:04→23:44)
[2022-12-20 00:40] LABS: Glucose Point of Care 189 mg/dL (70-110)
[2022-12-20] MEDS: hydrocortisone 100 mg/2 mL SDV IVP ×3 (01:20→14:26)
[2022-12-20] MEDS: sodium chloride 0.9% 1,000 ML 150 ML IV ×2 (01:21→10:00)
[2022-12-20] MEDS: pantoprazole 40 mg SDV IVP ×2 (01:21→14:25)
[2022-12-20 01:46] LABS: Anion Gap 22.5 (5-19); Blood Urea Nitrogen 49 mg/dL (6-20); Calcium 7.2 mg/dL (8.5-10.5); Carbon Dioxide 28 mmol/L (22-29); Chloride 93 mmol/L (98-107); Glomerular Filtration Rate 25.5 mL/min (90-130); Glucose 184 mg/dL (65-115); Osmolality Calculated 308 mOsm/kg (285-295); Potassium 3.5 mmol/L (3.5-5.1); Sodium 140 mmol/L (136-145)
--- NOTE | 2022-12-20 02:15 | PC.NURSE ---
Notified Dr. Solorio that potassium is 3.5 on most recent chemistry. States I will put some orders in .
[2022-12-20] MEDS: vancomycin 1,500 MG/300 ML PIGGYBACK 200 MG IV (02:20)
[2022-12-20] MEDS: potassium chloride premix 100 ML 25 MEQ IV (02:26)
[2022-12-20] MEDS: octreotide 500 MCG in sodium chloride 0.9% (100 ml) 100 ML 10.1 MCG IV ×2 (03:30→14:26)
[2022-12-20 03:46] LABS: ABG PCO2 30.6 mmHg (35-45); ABG PH Result 7.49 (7.35-7.45); Alveolar-Arterial Oxygen Gradi 78.4 mmHg (5-10); Arterial Blood Gas Hematocrit 29.8 % (42-52); Base Excess ABG 0.6 mmol/L (-2.0-2.0); Blood Gas Allen Test Pos; Blood Gas Sample Site Radial, left; Blood Gas Sample Type Arterial; Blood Gas Tidal Volume 0.55; HCO3 ABG 23.5 mmol/L (22-26); HGB O2 Sat 94.4 % (95-100); Ionized Calcium Level - ABG 0.8 mmol/L (1.1-1.4); Methemoglobin 0.4 % (0.4-1.5); Oxygen Device VENT; Oxygen Saturation ABG 95.8; PO2 ABG 73.5 mmHg (80.0-100.0); Potassium Level - ABG 2.7 mmol/L (3.5-5.0); Total Hemoglobin 9.7 g/dL (14-18)
[2022-12-20] MEDS: metroNIDAZOLE IV 500 MG/100 ML PREMIX 100 MG IV ×3 (04:31→21:00)
[2022-12-20 05:01] LABS: Basophils # 0.1 10^3/uL (0.0-0.1); Basophils % 0.3 %; Eosinophils # 0.1 10^3/uL (0.0-0.8); Eosinophils % 0.8 %; Hematocrit 34.8 % (42.0-52.0); Hemoglobin 11.5 g/dL (11.7-16.6); Lymphocytes # 0.6 10^3/uL (0.8-4.8); Lymphocytes % 4.2 %; Mean Corpuscular Hemoglobin 33.7 pg (28.0-34.0); Mean Corpuscular Volume 102.1 fl (80-94); Mean Platelet Volume 11.9 fL (7.4-10.4); Monocytes # 1.1 10^3/uL (0.2-0.9); Monocytes % 7.4 %; Neutrophils # 11.65 10^3/uL (1.8-7.7); Neutrophils % 79.5 %; Nucleated Red Blood Cells % 0 %; Platelet Count 64 10^3/cmm (130-400); Red Blood Count 3.41 10^6/uL (4.1-5.3); Red Cell Distribution Width 15.5 % (12.1-15.1); White Blood Count 14.7 10^3/uL (4.0-10.0)
--- NOTE | 2022-12-20 05:15 | PC.NURSE ---
Attempted to give patient bath twice. Patient becomes very agitated and anxious. O2 sats decreased to 70's and MAP decreased to 60's. Unable to complete bath at this time.
[2022-12-20 05:24] LABS: Alanine Aminotransferase 299 U/L (0-41); Albumin Level 3.2 g/dL (3.5-5.2); Alkaline Phosphatase 56 U/L (40-130); Anion Gap 20.7 (5-19); Aspartate Amino Transferase 269 U/L (0-40); Blood Urea Nitrogen 49 mg/dL (6-20); Calcium 7.2 mg/dL (8.5-10.5); Carbon Dioxide 28 mmol/L (22-29); Chloride 97 mmol/L (98-107); Globulin 2.2 g/dL (1.3-4.6); Glomerular Filtration Rate 29.4 mL/min (90-130); Glucose 151 mg/dL (65-115); Lactic Sepsis W/Reflex 3.7 mmol/L (0.5-2.2); Magnesium 1.9 mg/dL (1.7-2.3); Osmolality Calculated 310 mOsm/kg (285-295); Potassium 3.7 mmol/L (3.5-5.1); Sodium 142 mmol/L (136-145); Total Bilirubin 3.4 mg/dL (0.15-1.2); Total Protein 5.4 g/dL (6.6-8.7)
--- NOTE | 2022-12-20 06:21 | PC.NURSE ---
Dr. Tao to bedside to make rounds.
[2022-12-20 06:42] LABS: Reflex Lactate Order REFLEX LACTIC ORDERD
[2022-12-20 08:04] LABS: Lactic Acid level (Lactate) 3.1 mmol/L (0.5-2.2)
[2022-12-20 09:32] LABS: Glucose Point of Care 174 mg/dL (70-110)
[2022-12-20 09:32] LABS: Glucose Point of Care 185 mg/dL (70-110)
[2022-12-20 09:32] LABS: Glucose Point of Care 130 mg/dL (70-110)
[2022-12-20 09:32] LABS: Glucose Point of Care 180 mg/dL (70-110)
[2022-12-20 09:32] LABS: Glucose Point of Care 143 mg/dL (70-110)
[2022-12-20 09:32] LABS: Glucose Point of Care 159 mg/dL (70-110)
[2022-12-20 09:32] LABS: Glucose Point of Care 146 mg/dL (70-110)
[2022-12-20 09:32] LABS: Glucose Point of Care 132 mg/dL (70-110)
[2022-12-20 09:32] LABS: Glucose Point of Care 203 mg/dL (70-110)
[2022-12-20 09:32] LABS: Glucose Point of Care 166 mg/dL (70-110)
[2022-12-20 09:32] LABS: Glucose Point of Care 177 mg/dL (70-110)
[2022-12-20 09:32] LABS: Glucose Point of Care 166 mg/dL (70-110)
--- NOTE | 2022-12-20 10:34 | PC.CHAP ---
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 visit [] Patient/Family/Request visit [] Outpatient visit [] Follow-up visit [] Physician referral [] Code/Alert [x] Routine visit [] Staff referral [] Actively dying [] Patient sleeping [x] Family support [] [] Out of room [] Palliative care [] [x] Receiving care in room [] Pre-surgical visit [] Trauma [] Long length of stay [x] ICU visit [x] Other: vent Relational/Emotional Strength [] Patient feels connected with others/family/visitors/staff [] Distress [] Loneliness/isolation [] Abandonment Spirituality of Patient [] Person of Crystal [] Attends [facility] of their [place] [] Believes in Prayer [] Reads Bible or Cheondoism materials [] There are Spiritual issues to be addressed [employer] Interventions [x] Prayer [] Active listening [] Non-anxious presence [] Spiritual/emotional support [] Crisis/trauma care [] Spiritual counseling [] Bereavement support [] Provided bereavement packet [] Provided Bible/devotional materials [] Provided toy/stuffed animal, coloring book to patient or family member [] Provided Communion [] Anointing/[place] [] Salvation [x] Completed spiritual assessment [] Other: Impact on Illness or Injury [] Angry [] Fearful [] Anxious [] Often cries [] Exhaustion [] Unable to work [] Unable to attend anabaptist [] Unable to walk/stand [] Unable to read [] Unable to drive [] Unable to eat/drink [] Unable to sleep [] Unable to be with family [] Patient intubated [] Other: Summary Time spent with patient
[2022-12-20] MEDS: aspirin 81 mg EC Tablet PO (10:46)
[2022-12-20] MEDS: meropenem 1,000 MG in sodium chloride 0.9% (plus) 50 ML 100 MG IV ×2 (10:54→22:53)
[2022-12-20] MEDS: norepinephrine 8 MG in dextrose 5 % 500 ML 7.62 MG IV (11:22)
[2022-12-20] MEDS: propofol 1,000 MG/100 ML INJ 5.11 MG IV ×2 (11:23→11:35)
--- NOTE | 2022-12-20 12:11 | XR_ITS ---
WS: [id number] XR chest 1V portable [id number] REASON FOR EXAM: Pneumonia FINDINGS: Endotracheal tube, nasogastric tube, and right IJ central venous line remain in proper position. Compared to the examination of 12/18/2022 there is increased opacity over the left lower lung field wh ich appears to be due to an interval development of left pleural effusion. (CT scan of 12/18/2022 did not demonstrate significant left pleural effusion). There is central vascular congestion and cardiomegaly. XR/XR chest 1V portable [id number] IMPRESSION: Impression interval development of pleural effusion. ADDITIONAL NOTE: Because of potential interval development of left pleural effusion patient's pr evious CT scan and ultrasound of 12/18/[address] scan findings are very suspicious for acute cholecystitis with gallbladder w all necrosis and perforation. There is fluid around the gallbladder, right para colic gutter, and also free fluid within the pelvis. Recommendation for HIDA sc an is very appropriate unless patient is not surgical candidate under any circu mstances.
[2022-12-20] MEDS: ipratropium-albuterol 3 mL Neb INHALATION ×2 (13:02→20:13)
[2022-12-20] MEDS: acetylcysteine 200 mg/mL MDV 10 mL 100 MG INHALATION ×2 (13:02→20:13)
[2022-12-20] MEDS: insulin lispro 100 unit/1 mL SUBCUT ×3 (13:03→21:15)
[2022-12-20 13:07] LABS: Glucose Point of Care 171 mg/dL (70-110)
--- NOTE | 2022-12-20 14:13 | P.PN_ITS ---
Subjective Subjective: Patient was seen and examined this morning, continued to be intubated sedated on mechanical ventilation, High supplemental oxygen requirement, currently the vasopressors requirement has significantly decreased Is requiring 2 of Levophed, vasopressin and epi drip has been discontinued. Robust urine output, with improvement in BUN and serum creatinine. A.m. x-ray chest has shown interval development of left-sided pleural effusion. MRCP has also been ordered for further evaluation of biliary tree, given concern for possible ascending cholangitis. Medications: Medication Review Details: Generic Name Dose Route Start Last Admin Trade Name Freq PRN Reason Stop Dose Admin Acetylcysteine 100 mg 12/20/22 14:00 12/20/22 13:02 Acetylcysteine 2 00 Mg/Ml Mdv 10 Ml INHALATION 100 mg Q6H.RESP [place] Administration Albuterol/Ipratrop ium 3 ml 12/20/22 14:00 12/20/22 13:02 Ipratropium-Albu terol 3 Ml Neb INHALATION 3 ml Q6H.RESP [place] Administration Amitriptyline HCl 50 mg 12/18/22 21:00 12/19/22 21:26 Amitriptyline 25 Mg Tablet PO 50 mg BEDTIME IND[place] Administration Aspirin 81 mg 12/18/22 09:00 12/20/22 10:46 Aspirin 81 Mg Ec Tablet PO 81 mg DAILY [place] Administration Hydrocortisone Sod ium Succinate 100 mg 12/18/22 13:30 12/20/22 07:47 Hydrocortisone 1 00 Mg/2 Ml Sdv IVP 100 mg Q6H [place] Administration Norepinephrine Bit artrate 4 mg 254 mls @ 0 mls/h r 12/17/22 23:15 12/18/22 19:17 / Dextrose IV Infused .Q0M INDIA Titration Protocol Per Protocol Vasopressin 100 un it/ Sodium 100 mls @ 0 mls/h r 12/18/22 02:15 12/19/22 23:59 Chloride IV 0 unit/min .Q0M INDIA 0 mls/hr Titration Protocol Per Protocol Norepinephrine Bit artrate 8 mg 508 mls @ 0 mls/h r 12/18/22 07:00 12/20/22 11:22 / Dextrose IV 2 mcg/min .Q0M INDIA 7.62 mls/hr Administration Protocol Per Protocol Albumin Human 25 g in 100 mls @ 60 mls/hr 12/18/22 08:00 12/20/22 11:50 Albumin IV Infused Q8H INDIA Infusion Epinephrine HCl 2. 5 mg/ Sodium 252.5 mls @ 0 mls /hr 12/18/22 11:30 12/19/22 14:25 Chloride IV 0 mcg/min .Q0M INDIA 0 mls/hr Titration Protocol Per Protocol Octreotide Acetate 500 mcg/ 101 mls @ 10.1 ml s/hr 12/18/22 13:30 12/20/22 03:30 Sodium Chloride IV 50 mcg/hr .Q10H INDIA 10.1 mls/hr Administration 50 MCG/HR Fentanyl 1,000 mcg / Sodium 100 mls @ 0 mls/h r 12/18/22 13:30 12/20/22 10:00 Chloride IV 125 mcg/hr .Q0M INDIA 12.5 mls/hr Administration Protocol Per Protocol Midazolam HCl 100 mg/ Sodium 100 mls @ 0 mls/h r 12/18/22 13:30 12/20/22 11:49 Chloride IV 4 mg/hr .Q0M IND[place] 4 mls/hr Titration Protocol Per Protocol Metronidazole 500 mg in 100 mls @ 100 mls/hr 12/18/22 20:30 12/20/22 13:04 Flagyl Iv IV 100 mls/hr Q8H [place] Administration Protocol Meropenem 1,000 mg / Sodium 50 mls @ 100 mls/ hr 12/19/22 23:00 12/20/22 11:43 Chloride IV Infused Q12H [facility] Infusion Protocol Vancomycin/PEG/NAD A/Lysine/Water 1,500 mg in 300 m ls @ 200 mls/hr 12/20/22 02:00 12/20/22 03:50 Vancocin IV Infused Q24H [place] Infusion Propofol 1,000 mg in 100 m ls @ 0 mls/hr 12/20/22 10:15 12/20/22 11:49 Diprivan IV 10 mcg/kg/min .Q0M [place]IA 10.23 mls/hr Titration Protocol Per Protocol Insulin Human Lisp ro 0 unit 12/20/22 12:00 12/20/22 13:03 Insulin Lispro 1 00 Unit/1 Ml SUBCUT 2 unit WM&BEDTIME [place] Administration Protocol Morphine Sulfate 2 mg 12/18/22 02:28 12/19/22 06:22 Morphine 4 Mg/Ml Sdv 1 Ml IVP 2 mg Q4H PRN Administration SEVERE PAIN Pantoprazole Sodiu m 40 mg 12/18/22 13:30 12/20/22 01:21 Pantoprazole 40 Mg Sdv IVP 40 mg Q12H [place] Administration Vitals/I&O/Wt Last Vital Signs Temp 97.5 F L 12/20/22 08:00 Pulse 67 12/20/22 13:11 Resp 18 12/20/22 13:07 BP 122/78 12/20/22 11:15 Pulse Ox 91 12/20/22 13:07 O2 Del Method 12/20/22 13:07 O2 Flow Rate 40 12/18/22 10:15 FiO2 80 12/20/22 13:07 12/19/22 12/20/22 12/20/22 22:59 06:59 14:59 Intake Total 2475.236 / 4117.440 1399.561 / 5517.001 1660.593 / 1660.593 Output Total 4975 / 7625 3600 / 80855 1800 / 1800 Balance -2499.764 / -3507.560 -2200.439 / -5707.999 -139.407 / -139.407 Weight last 48 hrs Weight 170.46 kg Weight 180.983 kg Physical Exam Narrative: Intubated sedated on mechanical ventilation HENMT: COMMON NORMALS: normocephalic and atraumatic HEAD & SCALP: no rmocephalic and atraumatic Resp: COMMON NORMALS: clear to auscultation bilaterally EFFORT & INSPECTION: Yes symmetric chest movement AUSCULTATION: clear to auscultation bilaterally Cardio: COMMON NORMALS: regular rate, regular rhythm, S1 normal heart sound present, S2 normal heart sound present, No gallops present (Cardio), No murmurs present (Cardio), No rub (Cardio) and Peripheral pulses 2+ throughout RATE: regular rate RHYTHM: regular rhythm HEART SOUNDS: S1 normal heart sound present and S2 normal heart sound present PERIPHERAL PULSES: Peripheral pulses 2+ throughout GI: COMMON NORMALS: Normal to inspection, nondistended, normoactive bowel sounds present, Soft to palpation, non-tender, No hepatosplenomegaly present and no masses AUSCULTATION: Yes normoactive bowel sounds PALPATION: Yes Soft to palpation and Yes No hepatosplenomegaly present RECTAL EXAM: Yes deferred Extremity: COMMON NORMALS: no clubbing, cyanosis or edema and no pedal edema Urinary Catheter Management: Ng: Cath Placed During This Visit: yes Reason for Continuing Indwelling Catheter: Accurate Measurement of Urinary Output in Critically Ill Patients Urinary Catheter Date of Insertion: 12/18/22 Urinary Catheter Time of Insertion: 07:15 Data 12/20/22 04:45 12/20/22 04:45 Micro: Microbiology 12/19/22 07:40 Gram Stain - Final Sputum - Endotracheal Tube Aspirate Sputum Culture - Preliminary A&P Assessment and plan (1) Septic shock: (2) Respiratory failure with hypoxia: (3) Hepatorenal syndrome: (4) Acute kidney injury: (5) High anion gap metabolic acidosis: (6) DKA (diabetic ketoacidosis): (7) Congestive heart failure: (8) Transaminitis: (9) Hyperbilirubinemia: (10) Elevated lactic acid level: (11) Acute cholecystitis: (12) Liver cirrhosis secondary to CALLES: (13) Legally blind: Plan 57-year-old gentleman who is morbidly obese with past medical history of being legally blind was admitted to the hospital in septic shock with CT imaging consistent for acute cholecystitis with elevated lactate and acute kidney injury. Patient underwent OR where he underwent cholecystectomy and was found to have liver cirrhosis. Septic shock with hypoxia: Source of infection possible acute cholecystitis versus cholangitis. CT chest on admission negative for consolidation. CT abdomen negative for bowel ischemia. Respiratory viral panel negative. Wean off pressors keeping mean artery pressure 65. Patient at one point was on be on maximum dose of Levophed, vasopressin, epinephrine. Pressors weaned off and currently patient is on 15 of Levophed and vasopressin has been weaned off. Follow-up blood culture. MRSA swab negative. Sputum culture pending. For now continue with empiric vancomycin, meropenem and Flagyl. Continue with stress dose steroids with hydrocortisone 100 mg IV every 6 hourly. Will plan to wean off hydrocortisone once patient become more stable within next 24 to 48 hours. Hypoxic respiratory failure most likely in setting of congestive heart failure. Continue with diuresis as above. Keeping saturation over 88%. Liver cirrhosis: With concerns for hepatorenal syndrome. Patient is not alcoholic. Hepatitis panel negative. Most likely CALLES. Transaminitis/hyperbilirubinemia: Continue with IV albumin every 8 hourly along with octreotide drip. Patient is on Levophed. Keep mean arterial pressure around 70. Monitor BMP. Acute kidney injury: Monitor BMP every 4 hourly. Strict input output charting. Switch from Bumex drip to Bumex 1 mg Q12H Repeat urinalysis, urine lites, urine creatinine and eosinophils. High anion gap metabolic acidosis: Most likely in setting of lactic acidosis, acute kidney injury and possible diabetic ketoacidosis. Resolved. Bicarb drip stopped. Monitor ABG daily. Diabetic ketoacidosis: Continue with insulin drip. Check blood sugar every hourly. Target blood sugar between 1 50-200. Continue with normal saline. Once blood sugar less than 200 can switch over to D5 NS. Lactic acidosis: Trending down. Went as high as 6.6. Trending down to 3.1. Congestive heart failure: EF of 41% with global LV hypokinesia. If patient improves can plan for ischemic work-up. Monitor fluid status. Troponin elevation: Troponin elevated only to 55. With delta of 3 and 6 hours. Most likely in setting of type II ME given septic shock. Glycemic control: Insulin drip. A1c 6. Nutrition: NPO. CODE STATUS: AND PUD prophylaxis: Protonix 40 mg IV every 12 hourly DVT prophylaxis: Heparin 5000 every 12 hourly Discharge planning: Depending on clinical development going forward Continue with care at ICU level. Attestations Medical Necessity Statement*: Needs to be in hospital for management of septic shock. Critical Care Time: The high probability of a clinically significant, sudden or life threatening deterioration of the patient's [] system(s) required my full and direct attention, intervention and personal management. The critical care time is as shown. This time is in addition to time spent performing any reported procedures but includes the following: [x] Data and vital sign review and interpretation [x] Patient assessment, examination and intervention [x] Documentation [x] Medication orders and management Critical Care Time (min): 60 Coding Level of Care Code Critical Care >/= 30 minutes Diagnoses Septic shock A41.9; R65.21 Respiratory failure with hypoxia J96.91 Hepatorenal syndrome K76.7 Acute kidney injury N17.9 High anion gap metabolic acidosis E87.29 DKA (diabetic ketoacidosis) E11.10 Congestive heart failure I50.9 Transaminitis R74.01 Hyperbilirubinemia E80.6 Elevated lactic acid level R79.89 Acute cholecystitis K81.0 Liver cirrhosis secondary to CALLES K75.81; K74.60 Legally blind H54.8
--- NOTE | 2022-12-20 16:02 | PM.PN ---
Subjective Subjective: Patient remains intubated and sedated. Vitals/I&O/Wt Last Vital Signs Temp 97.5 F L 12/20/22 13:15 Pulse 68 12/20/22 14:00 Resp 18 12/20/22 15:45 BP 120/70 12/20/22 14:00 Pulse Ox 89 L 12/20/22 15:45 O2 Del Method 12/20/22 13:15 O2 Flow Rate 40 12/18/22 10:15 FiO2 80 12/20/22 15:45 12/20/22 12/20/22 12/20/22 06:59 14:59 22:59 Intake Total 1399.561 / 5517.001 1770.626 / 1770.626 100 / 1870.626 Output Total 3600 / 61671 1800 / 1800 Balance -2200.439 / -5707.999 -29.374 / -29.374 100 / 70.626 Weight last 48 hrs Weight 375 lb 12.8 oz Weight 399 lb Physical Exam Narrative: General: Intubated and sedated Abdomen: Soft, nondistended, no grimace to palpation, no guarding rebound or masses Dressings clean dry and intact Drain with minimal bile Urinary Catheter Management: Ng: Cath Placed During This Visit: yes Reason for Continuing Indwelling Catheter: Accurate Measurement of Urinary Output in Critically Ill Patients Urinary Catheter Date of Insertion: 12/18/22 Urinary Catheter Time of Insertion: 07:15 Data 12/20/22 04:45 12/20/22 04:45 Micro: Microbiology 12/19/22 07:40 Gram Stain - Final Sputum - Endotracheal Tube Aspirate Sputum Culture - Preliminary A&P Assessment and plan (1) Acute kidney injury: (2) Septic shock: (3) Community acquired pneumonia: (4) Hyperbilirubinemia: Plan High suspicion for acute cholangitis. Percutaneous cholecystostomy tube in place. Possible hepatorenal syndrome Culture bile from drain MRCP Continue antibiotics Further recommendations pending results of MRCP Medical management per hospitalist Attestations Medical Necessity Statement*: Patient requires multiple nights in the hospital for intensive care and IV antibiotics for septic shock Coding Level of Care Code Acute Code for Chg Fwd Diagnoses Acute kidney injury N17.9 Septic shock A41.9; R65.21 Community acquired pneumonia J18.9 Hyperbilirubinemia E80.6
[2022-12-20 18:13] LABS: Glucose Point of Care 195 mg/dL (70-110)
[2022-12-20] MEDS: bumetanide 0.25 mg/mL SDV 4 mL 1 MG IVP (18:14)
--- NOTE | 2022-12-20 18:53 | PC.NURSE ---
Shift summary: Patient has rested in bed throughout the day. Oxygen weaned form 100% to 80%. Versed weaned off and switched to propofol. Unable to titrate of of levophed, but only requiring 1mcg. total urine output during shift is 3300mL.
[2022-12-20] MEDS: hydrocortisone 100 mg/2 mL SDV 50 MG IVP (20:59)
[2022-12-20] MEDS: amitriptyline 25 mg Tablet 50 MG PO (21:00)
[2022-12-20] MEDS: artificial tears Op Oint 3.5 gm 1 APPLIC EYE-BOTH (21:01)
[2022-12-20 21:14] LABS: Glucose Point of Care 252 mg/dL (70-110)
[2022-12-21] VITALS (60 sets, daily range): BP systolic 105–138; BP diastolic 57–92; PULSE 60–96; RESP 16–19; TEMP 36.3–37.2; O2SAT 84–93
[2022-12-21] MEDS: octreotide 500 MCG in sodium chloride 0.9% (100 ml) 100 ML 10.1 MCG IV ×3 (00:38→23:58)
[2022-12-21] MEDS: pantoprazole 40 mg SDV IVP ×2 (01:40→13:46)
[2022-12-21] MEDS: vancomycin 1,500 MG/300 ML PIGGYBACK 200 MG IV ×2 (02:07→15:47)
[2022-12-21] MEDS: hydrocortisone 100 mg/2 mL SDV 50 MG IVP ×3 (02:13→20:41)
[2022-12-21] MEDS: propofol 1,000 MG/100 ML INJ 15.34 MG IV (02:14)
[2022-12-21] MEDS: ipratropium-albuterol 3 mL Neb INHALATION ×4 (03:10→20:08)
[2022-12-21] MEDS: acetylcysteine 200 mg/mL MDV 10 mL 100 MG INHALATION ×4 (03:10→20:08)
[2022-12-21 03:18] LABS: ABG PH Result 7.52 (7.35-7.45); Base Excess ABG 8.8 mmol/L (-2.0-2.0); Blood Gas Allen Test POS; Blood Gas Tidal Volume 530; Oxygen Device VENT; Oxygen Saturation ABG 90; Potassium Level - ABG 2.5 mmol/L (3.5-5.0)
[2022-12-21 03:19] LABS: Blood Gas Sample Site L RAD; Blood Gas Sample Type ART
[2022-12-21 03:20] LABS: Carboxyhemoglobin 1.3 %THgb (0.4-20.1); Methemoglobin 0.9 % (0.4-1.5); Total Hemoglobin 10.8 g/dL (14-18)
[2022-12-21 03:32] LABS: Basophils % 0.2 %; Hematocrit 34.2 % (42.0-52.0); Hemoglobin 11.2 g/dL (11.7-16.6); Lymphocytes # 0.6 10^3/uL (0.8-4.8); Lymphocytes % 6.1 %; Mean Corpuscular HGB Conc 32.7 g/dL (30.0-36.0); Mean Corpuscular Hemoglobin 33.2 pg (28.0-34.0); Mean Corpuscular Volume 101.5 fl (80-94); Mean Platelet Volume 11.8 fL (7.4-10.4); Monocytes # 0.7 10^3/uL (0.2-0.9); Monocytes % 7.4 %; Neutrophils # 7.69 10^3/uL (1.8-7.7); Nucleated Red Blood Cells % 0 %; Platelet Count 51 10^3/cmm (130-400); Red Blood Count 3.37 10^6/uL (4.1-5.3); Red Cell Distribution Width 15.3 % (12.1-15.1)
[2022-12-21 03:50] LABS: Alanine Aminotransferase 277 U/L (0-41); Albumin Level 3.4 g/dL (3.5-5.2); Alkaline Phosphatase 52 U/L (40-130); Anion Gap 15.9 (5-19); Aspartate Amino Transferase 222 U/L (0-40); Blood Urea Nitrogen 49 mg/dL (6-20); Calcium 7.5 mg/dL (8.5-10.5); Carbon Dioxide 33 mmol/L (22-29); Chloride 100 mmol/L (98-107); Globulin 2.3 g/dL (1.3-4.6); Glomerular Filtration Rate 48.1 mL/min (90-130); Glucose 194 mg/dL (65-115); Osmolality Calculated 320 mOsm/kg (285-295); Sodium 146 mmol/L (136-145); Total Bilirubin 3.5 mg/dL (0.15-1.2); Total Protein 5.7 g/dL (6.6-8.7)
[2022-12-21 04:28] LABS: Potassium 2.9 mmol/L (3.5-5.1)
[2022-12-21 04:44] LABS: Procalcitonin > 100.00 ng/mL (0-0.5)
[2022-12-21] MEDS: metroNIDAZOLE IV 500 MG/100 ML PREMIX 100 MG IV ×3 (05:01→20:41)
[2022-12-21] MEDS: lidocaine 1% 5 ML in potassium chloride premix 100 ML 52.5 ML IV (05:01)
[2022-12-21] MEDS: albumin 25 G/100 ML BAG 60 G IV ×2 (07:51→15:47)
[2022-12-21] MEDS: insulin lispro 100 unit/1 mL SUBCUT ×4 (08:03→21:06)
[2022-12-21 08:06] LABS: Glucose Point of Care 195 mg/dL (70-110)
--- NOTE | 2022-12-21 08:43 | USCV_ITS ---
Timothy Salmeron Age: 57 Gender: M : 1965 Exam Date: 12/21/2022 10:13 Ordering Phys: Turner Ivy MD Technologist: Mo Arango [place]am [place] [facility] [place] Indication: DVT PROCEDURES: Venous duplex imaging was performed in bilateral lower extremities. The following venous structures were evaluated: common femoral vein, profunda vein, proximal portion of the greater saphenous vein, superficial femoral vein, and the popliteal vein. In addition, the posterior tibial and peroneal trunk were evaluated. FINDINGS: Normal 2-D Doppler and augmentation and compressibility throughout the lower extremity venous structures. Additional imaging through the proximal calf veins also reveals no thrombus. Limited evaluation of the greater saphenous vein is patent with no thrombus.. Difficulty visualizing femoral vein distally bilaterally. CONCLUSIONS No DVT bilateral lower extremities. Dr. Joaquina Baires DO (Electronically Signed) Final Date: 21 December 2022 12:31 S
--- NOTE | 2022-12-21 08:46 | XR_ITS ---
WS: [id number] XR chest 1V portable [id number] REASON FOR EXAM: pneumonia FINDINGS: Right internal jugular central venous line, endotracheal tube, nasogastric tube remain in proper posi tion and and compared to the previous examination of 12/20/2022. There is central vascular congestion. There are ill-defined reticular and groundglass opacities in both lungs. There appear to be bilateral pleural effusions. XR/XR chest 1V portable [id number] IMPRESSION: Findings suggest congestive heart failure although a pneumonitis may be superim posed. The abnormalities in the chest may be slowly progressive compared to the examinations on 12/18/2022.
--- NOTE | 2022-12-21 09:28 | PC.NURSE ---
At approximatley 0800, patient oxygen saturations suddenly dropped from 91% to 70% with a good waveform on the SPO2 monitor. Nothing identified that precipitated the change in status. Inline suction and reposition performed by nurse, but no improvement. RT called to bedisde. RT performed suction as well, assisted in another reposition and gave a scheduled breathing treatment and increased FIO2 from 80% to 100%. Patient oxygen saturation improved to 88%. NUrse alerted Dr freeman to events, he ordered chest Xray and venous doppler of legs.
[2022-12-21] MEDS: bumetanide 0.25 mg/mL SDV 4 mL 1 MG IVP (09:55)
[2022-12-21] MEDS: aspirin 81 mg EC Tablet PO (09:59)
[2022-12-21] MEDS: dextrose 5% 1,000 ML 50 ML IV (10:15)
[2022-12-21 10:21] LABS: Slide Review Slide Review Perform
[2022-12-21 11:04] LABS: Anion Gap 15.1 (5-19); Blood Urea Nitrogen 50 mg/dL (6-20); Calcium 7.6 mg/dL (8.5-10.5); Carbon Dioxide 35 mmol/L (22-29); Chloride 102 mmol/L (98-107); Glomerular Filtration Rate 52.1 mL/min (90-130); Glucose 198 mg/dL (65-115); Osmolality Calculated 327 mOsm/kg (285-295); Potassium 3.1 mmol/L (3.5-5.1); Sodium 149 mmol/L (136-145)
--- NOTE | 2022-12-21 12:04 | PM.PN ---
Subjective Subjective: Patient was seen and examined this morning, continued to be intubated sedated on mechanical ventilation, High supplemental oxygen requirement, a.m. ABG x-ray chest has been reviewed, has been afebrile, Continue to have robust urine output. Patient is currently off vasopressors. Medications: Medication Review Details: Generic Name Dose Route Start Last Admin Trade Name Clarkq PRN Reason Stop Dose Admin Acetylcysteine 100 mg 12/20/22 14:00 12/21/22 08:12 Acetylcysteine 2 00 Mg/Ml Mdv 10 Ml INHALATION 100 mg Q6H.RESP [place] Administration Albuterol/Ipratrop ium 3 ml 12/20/22 14:00 12/21/22 08:12 Ipratropium-Albu terol 3 Ml Neb INHALATION 3 ml Q6H.RESP [place] Administration Amitriptyline HCl 50 mg 12/18/22 21:00 12/20/22 21:00 Amitriptyline 25 Mg Tablet PO 50 mg BEDTIME [place] Administration Artificial Tears 1 applic 12/20/22 21:00 12/20/22 21:01 Artificial Tears Op Oint 3.5 Gm EYE-BOTH 1 applic BEDTIME NIDIA Administration Aspirin 81 mg 12/18/22 09:00 12/21/22 09:59 Aspirin 81 Mg Ec Tablet PO 81 mg DAILY [place] Administration Bumetanide 1 mg 12/21/22 09:00 12/21/22 09:55 Bumetanide 0.25 Mg/Ml Sdv 4 Ml IVP 1 mg DAILY [place] Administration Norepinephrine Bit artrate 4 mg 254 mls @ 0 mls/h r 12/17/22 23:15 12/18/22 19:17 / Dextrose IV Infused .Q0M [place] Titration Protocol Per Protocol Vasopressin 100 un it/ Sodium 100 mls @ 0 mls/h r 12/18/22 02:15 12/19/22 23:59 Chloride IV 0 unit/min .Q0M [place] 0 mls/hr Titration Protocol Per Protocol Norepinephrine Bit artrate 8 mg 508 mls @ 0 mls/h r 12/18/22 07:00 12/20/22 23:49 / Dextrose IV 0 mcg/min .Q0M [place] 0 mls/hr Titration Protocol Per Protocol Albumin Human 25 g in 100 mls @ 60 mls/hr 12/18/22 08:00 12/21/22 09:36 Albumin IV Infused Q8H [place] Infusion Epinephrine HCl 2. 5 mg/ Sodium 252.5 mls @ 0 mls /hr 12/18/22 11:30 12/19/22 14:25 Chloride IV 0 mcg/min .Q0M [place] 0 mls/hr Titration Protocol Per Protocol Octreotide Acetate 500 mcg/ 101 mls @ 10.1 ml s/hr 12/18/22 13:30 12/21/22 10:06 Sodium Chloride IV 50 mcg/hr .Q10H [place] 10.1 mls/hr Administration 50 MCG/HR Fentanyl 1,000 mcg / Sodium 100 mls @ 0 mls/h r 12/18/22 13:30 12/20/22 19:34 Chloride IV Infused .Q0M [place] Titration Protocol Per Protocol Midazolam HCl 100 mg/ Sodium 100 mls @ 0 mls/h r 12/18/22 13:30 12/20/22 18:17 Chloride IV 0 mg/hr .Q0M [place] 0 mls/hr Titration Protocol Per Protocol Metronidazole 500 mg in 100 mls @ 100 mls/hr 12/18/22 20:30 12/21/22 09:35 Flagyl Iv IV Infused Q8H [place] Infusion Protocol Meropenem 1,000 mg / Sodium 50 mls @ 100 mls/ hr 12/19/22 23:00 12/20/22 23:41 Chloride IV Infused Q12H [place] Infusion Protocol Propofol 1,000 mg in 100 m ls @ 0 mls/hr 12/20/22 10:15 12/21/22 09:38 Diprivan IV 0 mcg/kg/min .Q0M [place] 0 mls/hr Titration Protocol Per Protocol Fentanyl 2,500 mcg / Sodium 250 mls @ 0 mls/h r 12/20/22 18:00 12/21/22 09:36 Chloride IV 50 mcg/hr .Q0M [place] 5 mls/hr Titration Protocol Per Protocol Dextrose 1,000 mls @ 50 ml s/hr 12/21/22 08:45 12/21/22 10:15 D5w IV 50 mls/hr .Q20H [place] Administration Insulin Human Lisp ro 0 unit 12/20/22 12:00 12/21/22 08:03 Insulin Lispro 1 00 Unit/1 Ml SUBCUT 4 unit WM&BEDTIME [place] Administration Protocol Morphine Sulfate 2 mg 12/18/22 02:28 12/19/22 06:22 Morphine 4 Mg/Ml Sdv 1 Ml IVP 2 mg Q4H PRN Administration SEVERE PAIN Pantoprazole Sodiu m 40 mg 12/18/22 13:30 12/21/22 01:40 Pantoprazole 40 Mg Sdv IVP 40 mg Q12H [place] Administration Vitals/I&O/Wt Last Vital Signs Temp 97.6 F 12/21/22 08:00 Pulse 70 12/21/22 11:30 Resp 18 12/21/22 10:38 BP 114/67 12/21/22 11:30 Pulse Ox 91 12/21/22 11:30 O2 Del Method 12/21/22 11:00 O2 Flow Rate 40 12/18/22 10:15 FiO2 100 12/21/22 11:00 12/20/22 12/21/22 12/21/22 22:59 06:59 14:59 Intake Total 1101.146 / 2871.772 625.415 / 3497.187 483.698 / 483.698 Output Total 3300 / 5100 1700 / 6800 350 / 350 Balance -2198.854 / -2228.228 -1074.585 / -3302.813 133.698 / 133.698 Weight last 48 hrs Weight 165.552 kg Weight 170.46 kg Physical Exam Narrative: Intubated sedated on mechanical ventilation HENMT: COMMON NORMALS: normocephalic and atraumatic HEAD & SCALP: normocephalic and atraumatic Resp: COMMON NORMALS: clear to auscultation bilaterally EFFORT & INSPECTION: Yes symmetric chest movement AUSCULTATION: clear to auscultation bilaterally OTHER: Diminished air entry bilaterally Cardio: COMMON NORMALS: regular rate, regular rhythm, S1 normal heart sound present, S2 normal heart sound present, No gallops present (Cardio), No murmurs present (Cardio), No rub (Cardio) and Peripheral pulses 2+ throughout RATE: regular rate RHYTHM: regular rhythm HEART SOUNDS: S1 normal heart sound present and S2 normal heart sound present PERIPHERAL PULSES: Peripheral pulses 2+ throughout GI: COMMON NORMALS: Normal to inspection, nondistended, normoactive bowel sounds present, Soft to palpation, non-tender, No hepatosplenomegaly present and no masses AUSCULTATION: Yes normoactive bowel sounds PALPATION: Yes Soft to palpation and Yes No hepatosplenomegaly present RECTAL EXAM: Yes deferred Extremity: COMMON NORMALS: no clubbing, cyanosis or edema and no pedal edema Urinary Catheter Management: Ng: Cath Placed During This Visit: yes Reason for Continuing Indwelling Catheter: Accurate Measurement of Urinary Output in Critically Ill Patients Urinary Catheter Date of Insertion: 12/18/22 Urinary Catheter Time of Insertion: 07:15 Data 12/21/22 03:10 12/21/22 10:11 Micro: Microbiology 12/19/22 07:40 Gram Stain - Final Sputum - Endotracheal Tube Aspirate Sputum Culture - Final Betty albicans 12/20/22 14:20 Gram Stain - Final Gallbladder Fluid Body Fluid Culture - Preliminary A&P Assessment and plan (1) Septic shock: (2) Respiratory failure with hypoxia: (3) Hepatorenal syndrome: (4) Acute kidney injury: (5) High anion gap metabolic acidosis: (6) DKA (diabetic ketoacidosis): (7) Congestive heart failure: (8) Transaminitis: (9) Hyperbilirubinemia: (10) Elevated lactic acid level: (11) Acute cholecystitis: (12) Liver cirrhosis secondary to CALLES: (13) Legally blind: (14) ARDS (adult respiratory distress syndrome): (15) Hypernatremia: (16) Hypokalemia: (17) Thrombocytopenia: Plan 57-year-old gentleman who is morbidly obese with past medical history of being legally blind was admitted to the hospital in septic shock with CT imaging consistent for acute cholecystitis with elevated lactate and acute kidney injury. Patient underwent OR where he underwent cholecystectomy and was found to have liver cirrhosis. Septic shock with hypoxia: Source of infection possible acute cholecystitis versus cholangitis. CT chest on admission negative for consolidation. CT abdomen negative for bowel ischemia. Follow MRCP, monitor CMP. Respiratory viral panel negative. Wean off pressors keeping mean artery pressure 65. Patient at one point was on be on maximum dose of Levophed, vasopressin, epinephrine. Pressors weaned off and currently patient is on 15 of Levophed and vasopressin has been weaned off. Blood culture: Negative MRSA swab negative. Sputum culture pending. For now continue with empiric vancomycin, meropenem and Flagyl. Continue with stress dose steroids with hydrocortisone 100 mg IV every 6 hourly. Will plan to wean off hydrocortisone once patient become more stable within next 24 to 48 hours. Acute hypoxic respiratory failure : Secondary to severe ARDS : likely secondary to decompensated heart failure, pneumonia, possible HPS(hepatopulmonary syndrome) in the setting of decompensated liver cirrhosis, at this point in time I cannot conclusively rule out possible underlying PE. Sputum Gram stain and culture: Betty albicans, possible colonization. Currently on cautious IV diuresis Monitor x-ray chest Monitor ABG Follow lower extremity Doppler vein D-Dimer : Continue mechanical ventilation Currently appropriately covered with broad-spectrum antibiotics. Empirically on fluconazole Thrombocytopenia: Could be all coming from sepsis, as well as could have chronic thrombocytopenia, in the setting of liver cirrhosis. Peripheral blood smear has been reviewed: Has not shown any schistocytes, showing significant spherocytes Follow DIC panel 4T score: 2 Monitor platelet count for now. Anemia: Follow LDH haptoglobin, direct bilirubin,SHU Hypernatremia: Possibly secondary to overdiuresis, resulting in intravascular volume depletion Currently on D5 water at 50 cc an hour Monitor serum sodium Hypokalemia: Monitor and replace serum potassium Liver cirrhosis: With concerns for hepatorenal syndrome. Patient is not alcoholic. Hepatitis panel negative. Most likely CALLES. Transaminitis/hyperbilirubinemia: Continue with IV albumin every 8 hourly along with octreotide drip. Patient is on Levophed. Keep mean arterial pressure around 70. Monitor BMP. Acute kidney injury: Monitor BMP every 4 hourly. Strict input output charting. Switch from Bumex drip to Bumex 1 mg daily Repeat urinalysis, urine lites, urine creatinine and eosinophils. High anion gap metabolic acidosis: Most likely in setting of lactic acidosis, acute kidney injury and possible diabetic ketoacidosis. Resolved. Bicarb drip stopped. Monitor ABG daily. Diabetic ketoacidosis: Continue with insulin drip. Check blood sugar every hourly. Target blood sugar between 1 50-200. Continue with normal saline. Once blood sugar less than 200 can switch over to D5 NS. Lactic acidosis: Trending down. Went as high as 6.6. Trending down to 3.1. Congestive heart failure: EF of 41% with global LV hypokinesia. If patient improves can plan for ischemic work-up. Monitor fluid status. Troponin elevation: Troponin elevated only to 55. With delta of 3 and 6 hours. Most likely in setting of type II OH given septic shock. Glycemic control: Insulin drip. A1c 6. Nutrition: NPO. CODE STATUS: AND PUD prophylaxis: Protonix 40 mg IV every 12 hourly DVT prophylaxis: Heparin 5000 every 12 hourly Discharge planning: Depending on clinical development going forward Continue with care at ICU level. Attestations Medical Necessity Statement*: In Hospital for management of septic shock. Critical Care Time: The high probability of a clinically significant, sudden or life threatening deterioration of the patient's [] system(s) required my full and direct attention, intervention and personal management. The critical care time is as shown. This time is in addition to time spent performing any reported procedures but includes the following: [x] Data and vital sign review and interpretation [x] Patient assessment, examination and intervention [x] Documentation [x] Medication orders and management Critical Care Time (min): 60 Coding Level of Care Code Critical Care >/= 30 minutes Diagnoses Septic shock A41.9; R65.21 Respiratory failure with hypoxia J96.91 Hepatorenal syndrome K76.7 Acute kidney injury N17.9 High anion gap metabolic acidosis E87.29 DKA (diabetic ketoacidosis) E11.10 Congestive heart failure I50.9 Transaminitis R74.01 Hyperbilirubinemia E80.6 Elevated lactic acid level R79.89 Acute cholecystitis K81.0 Liver cirrhosis secondary to CALLES K75.81; K74.60 Legally blind H54.8 ARDS (adult respiratory distress syndrome) J80 Hypernatremia E87.0 Hypokalemia E87.6 Thrombocytopenia D69.6
[2022-12-21] MEDS: meropenem 1,000 MG in sodium chloride 0.9% (plus) 50 ML 100 MG IV (12:09)
[2022-12-21] MEDS: lidocaine 1% 5 ML in potassium chloride premix 100 ML 26.25 ML IV (12:13)
[2022-12-21 12:31] LABS: Glucose Point of Care 204 mg/dL (70-110)
--- NOTE | 2022-12-21 13:43 | PC.SOCIAL ---
Pt is intubated and noone in room. Will need to continue to follow
[2022-12-21] MEDS: fluconazole premix 100 MG in empty flexible container 1 EACH 50 MG IV (13:44)
--- NOTE | 2022-12-21 17:21 | PM.PN ---
Subjective Subjective: Patient remains intubated Vitals/I&O/Wt Last Vital Signs Temp 99 F 12/21/22 13:30 Pulse 96 12/21/22 14:00 Resp 18 12/21/22 16:19 BP 125/81 12/21/22 14:00 Pulse Ox 92 12/21/22 16:19 O2 Del Method 12/21/22 13:38 O2 Flow Rate 40 12/18/22 10:15 FiO2 85 12/21/22 16:19 12/21/22 12/21/22 12/21/22 06:59 14:59 22:59 Intake Total 625.415 / 3497.187 483.698 / 483.698 Output Total 1700 / 6800 1250 / 1250 Balance -1074.585 / -3302.813 -766.302 / -766.302 Weight last 48 hrs Weight 364 lb 15.68 oz Weight 375 lb 12.8 oz Physical Exam Narrative: General: Intubated and sedated Abdomen: Soft, nondistended, no grimace to palpation, no guarding rebound or masses Incisions intact without erythema or exudate Drain with minimal bile Urinary Catheter Management: Ng: Cath Placed During This Visit: yes Reason for Continuing Indwelling Catheter: Accurate Measurement of Urinary Output in Critically Ill Patients Urinary Catheter Date of Insertion: 12/18/22 Urinary Catheter Time of Insertion: 07:15 Data 12/21/22 03:10 12/21/22 10:11 Micro: Microbiology 12/19/22 07:40 Gram Stain - Final Sputum - Endotracheal Tube Aspirate Sputum Culture - Final Betty albicans 12/20/22 14:20 Gram Stain - Final Gallbladder Fluid Body Fluid Culture - Preliminary A&P Assessment and plan (1) Acute kidney injury: (2) Septic shock: (3) Community acquired pneumonia: (4) Hyperbilirubinemia: Plan High suspicion for acute cholangitis. Percutaneous cholecystostomy tube in place. Possible hepatorenal syndrome Culture bile from drain MRCP ordered Continue antibiotics Further recommendations pending results of MRCP Medical management per hospitalist Attestations Medical Necessity Statement*: Patient requires multiple more nights in the hospital for intensive care following percutaneous cholecystostomy tube placement Coding Level of Care Code Acute Code for g Fwd Diagnoses Acute kidney injury N17.9 Septic shock A41.9; R65.21 Community acquired pneumonia J18.9 Hyperbilirubinemia E80.6
[2022-12-21 17:44] LABS: Glucose Point of Care 184 mg/dL (70-110)
--- NOTE | 2022-12-21 18:17 | PC.NURSE ---
SHift SUmmary: Patient rested in bed throughout the day. Occasionally desaturated into the 70's, but recovered after repositioning and suctioning. Patient has been off of all sedation since 957, is withdrawn form pain, possibly opens eyes to command, but response is not reliable enough to say for sure. Total urine output is 2150.
[2022-12-21] MEDS: sodium chloride 3.5% neb 4 mL Neb INHALATION (20:08)
[2022-12-21] MEDS: amitriptyline 25 mg Tablet 50 MG PO (20:41)
[2022-12-21] MEDS: artificial tears Op Oint 3.5 gm 1 APPLIC EYE-BOTH (20:55)
[2022-12-21 21:04] LABS: Glucose Point of Care 180 mg/dL (70-110)
[2022-12-22] VITALS (59 sets, daily range): BP systolic 114–169; BP diastolic 62–110; PULSE 59–115; RESP 18–19; TEMP 36.4–37.2; O2SAT 89–95
[2022-12-22] MEDS: propofol 1,000 MG/100 ML INJ 15.34 MG IV (00:03)
[2022-12-22] MEDS: meropenem 1,000 MG in sodium chloride 0.9% (plus) 50 ML 100 MG IV ×4 (00:10→19:44)
[2022-12-22] MEDS: dextrose 5% 1,000 ML 50 ML IV (00:46)
[2022-12-22] MEDS: albumin 25 G/100 ML BAG 60 G IV ×4 (00:50→23:49)
[2022-12-22] MEDS: pantoprazole 40 mg SDV IVP ×2 (00:50→13:11)
[2022-12-22 01:41] LABS: Basophils % 0.3 %; Hematocrit 35.9 % (42.0-52.0); Hemoglobin 11.6 g/dL (11.7-16.6); Lymphocytes # 0.5 10^3/uL (0.8-4.8); Lymphocytes % 7.8 %; Mean Corpuscular HGB Conc 32.3 g/dL (30.0-36.0); Mean Corpuscular Volume 102.3 fl (80-94); Mean Platelet Volume 11.3 fL (7.4-10.4); Monocytes # 0.7 10^3/uL (0.2-0.9); Monocytes % 10.4 %; Neutrophils # 5.14 10^3/uL (1.8-7.7); Neutrophils % 80.7 %; Nucleated Red Blood Cells % 0 %; Platelet Count 52 10^3/cmm (130-400); Red Blood Count 3.51 10^6/uL (4.1-5.3); White Blood Count 6.4 10^3/uL (4.0-10.0)
[2022-12-22 01:43] LABS: Alanine Aminotransferase 250 U/L (0-41); Albumin Level 3.4 g/dL (3.5-5.2); Alkaline Phosphatase 60 U/L (40-130); Aspartate Amino Transferase 192 U/L (0-40); Blood Urea Nitrogen 49 mg/dL (6-20); Calcium 7.8 mg/dL (8.5-10.5); Carbon Dioxide 36 mmol/L (22-29); Chloride 102 mmol/L (98-107); Globulin 2.4 g/dL (1.3-4.6); Glomerular Filtration Rate 68.8 mL/min (90-130); Glucose 189 mg/dL (65-115); Osmolality Calculated 328 mOsm/kg (285-295); Sodium 150 mmol/L (136-145); Total Protein 5.8 g/dL (6.6-8.7)
[2022-12-22 01:45] LABS: Vancomycin Trough 21.4 ug/mL (10-15)
[2022-12-22] MEDS: vancomycin 1,250 MG/250 ML PIGGYBACK 250 MG IV ×2 (02:31→14:27)
[2022-12-22] MEDS: ipratropium-albuterol 3 mL Neb INHALATION ×4 (02:46→19:39)
[2022-12-22 02:47] LABS: INR 1.34 (0.8-1.2)
[2022-12-22] MEDS: acetylcysteine 200 mg/mL MDV 10 mL 100 MG INHALATION ×4 (02:47→19:39)
[2022-12-22 03:03] LABS: D Dimer 11.26 ug/mIFEU (0-0.59); Fibrinogen 389 mg/dL (174-498); Partial Thromboplastin Time 30.3 SECONDS (23.9-36.7)
[2022-12-22] MEDS: metroNIDAZOLE IV 500 MG/100 ML PREMIX 100 MG IV ×3 (04:07→19:45)
[2022-12-22 05:01] LABS: ABG PCO2 45.2 mmHg (35-45); ABG PH Result 7.54 (7.35-7.45); Alveolar-Arterial Oxygen Gradi 69.3 mmHg (5-10); Arterial Blood Gas Hematocrit 35.2 % (42-52); Blood Gas Operator Identificat JB; Blood Gas Sample Site Not specified; Blood Gas Sample Type Arterial; Carboxyhemoglobin 0.7 %THgb (0.4-20.1); HCO3 ABG 38.2 mmol/L (22-26); HGB O2 Sat 89.9 % (95-100); Methemoglobin 0.7 % (0.4-1.5); Oxygen Device VENT; Oxygen Saturation ABG 91.1; PO2 ABG 58.7 mmHg (80.0-100.0); Potassium Level - ABG 2.8 mmol/L (3.5-5.0); Total Hemoglobin 11.5 g/dL (14-18)
[2022-12-22 05:02] LABS: Blood Gas Tidal Volume 0.53
[2022-12-22 06:50] LABS: Lactate Dehydrogenase 351 U/L (135-225)
--- NOTE | 2022-12-22 07:49 | PC.NURSE ---
NUrse attempted to turn patient during morning assessment, however, patients oxygen saturations quickly drop into the 70s with any movement. Nurse was unable to complete assessment of backside due to respiratory status. Unable to make significant body position change due to respiratory status. Nurse used the bed tilting function in an attempt change pressure areas.
[2022-12-22] MEDS: hydrocortisone 100 mg/2 mL SDV 50 MG IVP ×2 (07:58→19:44)
[2022-12-22 07:59] LABS: Glucose Point of Care 185 mg/dL (70-110)
[2022-12-22] MEDS: insulin lispro 100 unit/1 mL SUBCUT ×4 (08:05→21:57)
[2022-12-22] MEDS: aspirin 81 mg EC Tablet PO (08:06)
[2022-12-22] MEDS: sodium chloride 3.5% neb 4 mL Neb INHALATION ×2 (08:18→19:39)
--- NOTE | 2022-12-22 08:25 | XR_ITS ---
WS: [id number] XR chest 1V portable [id number] REASON FOR EXAM: PNEUMONIA FINDINGS: The endotracheal tube, nasogastric tube, and right internal jugular central venous line remain in pro per position. There is decreased lung aeration bilaterally compared to the prior day leads to the impression of inc reasing lung opacities and pleural effusions. Likely the lung opacities and pleural effusions are sta ble and there is decreased lung expansion. XR/XR chest 1V portable [id number] IMPRESSION: Decreased lung expansion. Lung opacities and pleural effusions are significant but stable.
[2022-12-22] MEDS: lidocaine 1% 5 ML in potassium chloride premix 100 ML 26.25 ML IV (09:27)
[2022-12-22] MEDS: bumetanide 0.25 mg/mL SDV 4 mL 1 MG IVP (09:30)
[2022-12-22 11:30] LABS: Glucose Point of Care 171 mg/dL (70-110)
--- NOTE | 2022-12-22 12:17 | P.PN_ITS ---
Subjective Subjective: Patient remains intubated. Bilirubin going up Vitals/I&O/Wt Last Vital Signs Temp 98.4 F 12/23/22 06:00 Pulse 106 H 12/23/22 06:00 Resp 20 H 12/23/22 05:45 BP 193/101 12/23/22 06:00 Pulse Ox 91 12/23/22 06:00 O2 Del Method 12/23/22 06:00 O2 Flow Rate 40 12/18/22 10:15 FiO2 80 12/23/22 05:45 12/22/22 12/23/22 12/23/22 22:59 06:59 14:59 Intake Total 550 / 1756.635 5020 / 2925.833 Output Total 950 / 2450 750 / 3200 Balance -400 / -624.167 350 / -274.167 Weight last 48 hrs Weight 362 lb 9.6 oz Weight 364 lb Physical Exam Narrative: General: Intubated and sedated Abdomen: Soft, nondistended, no grimace to palpation, no guarding rebound or masses Incisions intact without erythema or exudate Drain with minimal bile Urinary Catheter Management: Ng: Cath Placed During This Visit: yes Reason for Continuing Indwelling Catheter: Accurate Measurement of Urinary Output in Critically Ill Patients Urinary Catheter Date of Insertion: 12/18/22 Urinary Catheter Time of Insertion: 07:15 Data 12/23/22 03:16 12/23/22 03:16 Micro: Microbiology 12/17/22 23:51 Blood Culture - Final Blood NO GROWTH AFTER 5 DAYS 12/17/22 23:25 Blood Culture - Final Blood NO GROWTH AFTER 5 DAYS 12/20/22 14:20 Gram Stain - Final Gallbladder Fluid Body Fluid Culture - Preliminary A&P Assessment and plan (1) Acute kidney injury: (2) Septic shock: (3) Community acquired pneumonia: (4) Hyperbilirubinemia: Plan High suspicion for acute cholangitis. Percutaneous cholecystostomy tube in place. Possible hepatorenal syndrome MRCP ordered Continue antibiotics Further recommendations pending results of MRCP Medical management per hospitalist Attestations Medical Necessity Statement*: Patient requires multiple more nights in the hospital for intensive care following percutaneous cholecystostomy tube placement Coding Level of Care Code Acute Code for [facility] Fwd Diagnoses Acute kidney injury N17.9 Septic shock A41.9; R65.21 Community acquired pneumonia J18.9 Hyperbilirubinemia E80.6
[2022-12-22] MEDS: fluconazole premix 100 MG in empty flexible container 1 EACH 50 MG IV (13:11)
[2022-12-22] MEDS: dextrose 5% 1,000 ML 100 ML IV (14:27)
[2022-12-22 16:38] LABS: Glucose Point of Care 177 mg/dL (70-110)
--- NOTE | 2022-12-22 17:43 | PM.PN ---
Subjective Subjective: Patient was seen and examined this morning, he has remained afebrile, serum creatinine has normalized, Currently off sedation his GCS is 3T, repeat x-ray chest done this morning has shown persistent pulmonary vascular congestion. Leukocytosis has resolved. Patient is currently off any vasopressor support. If patient GCS fails to improve off sedation, he will need repeat CT head without contrast possible EEG, possible neurology consult. Medications: Medication Review Details: Generic Name Dose Route Start Last Admin Trade Name Freq PRN Reason Stop Dose Admin Acetylcysteine 100 mg 12/20/22 14:00 12/22/22 13:26 Acetylcysteine 2 00 Mg/Ml Mdv 10 Ml INHALATION 100 mg Q6H.RESP [place] Administration Albuterol/Ipratrop ium 3 ml 12/20/22 14:00 12/22/22 13:26 Ipratropium-Albu terol 3 Ml Neb INHALATION 3 ml Q6H.RESP [place] Administration Amitriptyline HCl 50 mg 12/18/22 21:00 12/21/22 20:41 Amitriptyline 25 Mg Tablet PO 50 mg BEDTIME [place] Administration Artificial Tears 1 applic 12/20/22 21:00 12/21/22 20:55 Artificial Tears Op Oint 3.5 Gm EYE-BOTH 1 applic BEDTIME [place] Administration Aspirin 81 mg 12/18/22 09:00 12/22/22 08:06 Aspirin 81 Mg Ec Tablet PO 81 mg DAILY [place] Administration Bumetanide 1 mg 12/21/22 09:00 12/22/22 09:30 Bumetanide 0.25 Mg/Ml Sdv 4 Ml IVP 1 mg DAILY IDNIA Administration Hydrocortisone Sod ium Succinate 50 mg 12/21/22 20:00 12/22/22 07:58 Hydrocortisone 1 00 Mg/2 Ml Sdv IVP 50 mg Q12H [place] Administration Norepinephrine Bit artrate 4 mg 254 mls @ 0 mls/h r 12/17/22 23:15 12/18/22 19:17 / Dextrose IV Infused .Q0M [place] Titration Protocol Per Protocol Vasopressin 100 un it/ Sodium 100 mls @ 0 mls/h r 12/18/22 02:15 12/19/22 23:59 Chloride IV 0 unit/min .Q0M [place] 0 mls/hr Titration Protocol Per Protocol Norepinephrine Bit artrate 8 mg 508 mls @ 0 mls/h r 12/18/22 07:00 12/20/22 23:49 / Dextrose IV 0 mcg/min .Q0M [place] 0 mls/hr Titration Protocol Per Protocol Albumin Human 25 g in 100 mls @ 60 mls/hr 12/18/22 08:00 12/22/22 16:17 Albumin IV 60 mls/hr Q8H [place] Administration Epinephrine HCl 2. 5 mg/ Sodium 252.5 mls @ 0 mls /hr 12/18/22 11:30 12/19/22 14:25 Chloride IV 0 mcg/min .Q0M [place] 0 mls/hr Titration Protocol Per Protocol Metronidazole 500 mg in 100 mls @ 100 mls/hr 12/18/22 20:30 12/22/22 13:42 Flagyl Iv IV Infused Q8H [place] Infusion Protocol Propofol 1,000 mg in 100 m ls @ 0 mls/hr 12/20/22 10:15 12/22/22 08:22 Diprivan IV Infused .Q0M [place] Titration Protocol Per Protocol Fentanyl 2,500 mcg / Sodium 250 mls @ 0 mls/h r 12/20/22 18:00 12/21/22 10:00 Chloride IV 0 mcg/hr .Q0M [place] 0 mls/hr Titration Protocol Per Protocol Dextrose 1,000 mls @ 100 m ls/hr 12/21/22 08:45 12/22/22 14:27 D5w IV 100 mls/hr .Q10H [place] Administration Fluconazole 100 mg / N/A 50 mls @ 50 mls/h r 12/21/22 12:30 12/22/22 13:11 IV 50 mls/hr Q24H [place] Administration Vancomycin/PEG/NAD A/Lysine/Water 1,250 mg in 250 m ls @ 250 mls/hr 12/22/22 02:30 12/22/22 14:27 Vancocin IV 250 mls/hr Q12H [place] Administration Meropenem 1,000 mg / Sodium 50 mls @ 100 mls/ hr 12/22/22 12:00 12/22/22 13:41 Chloride IV Infused Q8H [place] Infusion Protocol Insulin Human Lisp ro 0 unit 12/20/22 12:00 12/22/22 11:35 Insulin Lispro 1 00 Unit/1 Ml SUBCUT 2 unit WM&BEDTIME [place] Administration Protocol Pantoprazole Sodiu m 40 mg 12/18/22 13:30 12/22/22 13:11 Pantoprazole 40 Mg Sdv IVP 40 mg Q12H [place] Administration Sodium Chloride 4 ml 12/21/22 20:00 12/22/22 08:18 Sodium Chloride 3.5% Neb 4 Ml Neb INHALATION 4 ml BID.RESPIRATORY S CH Administration Vitals/I&O/Wt Last Vital Signs Temp 98.9 F 12/22/22 11:30 Pulse 82 12/22/22 14:00 Resp 18 12/22/22 16:29 BP 155/97 12/22/22 14:00 Pulse Ox 92 12/22/22 16:29 O2 Del Method 12/22/22 14:00 O2 Flow Rate 40 12/18/22 10:15 FiO2 80 12/22/22 16:29 12/22/22 12/22/22 12/22/22 06:59 14:59 22:59 Intake Total 1235.833 / 2732.531 1275.833 / 1275.833 Output Total 800 / 3750 1500 / 1500 Balance 435.833 / -1017.469 -224.167 / -224.167 Weight last 48 hrs Weight 165.108 kg Weight 165.552 kg Physical Exam Narrative: Intubated sedated on mechanical ventilation GCS 3 T HENMT: COMMON NORMALS: normocephalic and atraumatic HEAD & SCALP: normocephalic and atraumatic Resp: COMMON NORMALS: clear to auscultation bilaterally EFFORT & INSPECTION: Yes symmetric chest movement AUSCULTATION: clear to auscultation bilaterally OTHER: Diminished air entry bilaterally Cardio: COMMON NORMALS: regular rate, regular rhythm, S1 normal heart sound present, S2 normal heart sound present, No gallops present (Cardio), No murmurs present (Cardio), No rub (Cardio) and Peripheral pulses 2+ throughout RATE: regular rate RHYTHM: regular rhythm HEART SOUNDS: S1 normal heart sound present and S2 normal heart sound present PERIPHERAL PULSES: Peripheral pulses 2+ throughout GI: COMMON NORMALS: Normal to inspection, nondistended, normoactive bowel sounds present, Soft to palpation, non-tender, No hepatosplenomegaly present and no masses AUSCULTATION: Yes normoactive bowel sounds PALPATION: Yes Soft to palpation and Yes No hepatosplenomegaly present RECTAL EXAM: Yes deferred Extremity: COMMON NORMALS: no clubbing, cyanosis or edema and no pedal edema Urinary Catheter Management: Ng: Cath Placed During This Visit: yes Reason for Continuing Indwelling Catheter: Accurate Measurement of Urinary Output in Critically Ill Patients Urinary Catheter Date of Insertion: 12/18/22 Urinary Catheter Time of Insertion: 07:15 Data 12/22/22 00:55 12/22/22 00:55 Micro: Microbiology 12/20/22 14:20 Gram Stain - Final Gallbladder Fluid Body Fluid Culture - Preliminary A&P Assessment and plan (1) Septic shock: (2) Respiratory failure with hypoxia: (3) Hepatorenal syndrome: (4) Acute kidney injury: (5) High anion gap metabolic acidosis: (6) DKA (diabetic ketoacidosis): (7) Congestive heart failure: (8) Transaminitis: (9) Hyperbilirubinemia: (10) Elevated lactic acid level: (11) Acute cholecystitis: (12) Liver cirrhosis secondary to CALLES: (13) Legally blind: (14) ARDS (adult respiratory distress syndrome): (15) Hypernatremia: (16) Hypokalemia: (17) Thrombocytopenia: Plan 57-year-old gentleman who is morbidly obese with past medical history of being legally blind was admitted to the hospital in septic shock with CT imaging consistent for acute cholecystitis with elevated lactate and acute kidney injury. Patient underwent OR where he underwent cholecystectomy and was found to have liver cirrhosis. Septic shock with hypoxia: Source of infection possible acute cholecystitis versus cholangitis. CT chest on admission negative for consolidation. CT abdomen negative for bowel ischemia. Follow MRCP, monitor CMP. Respiratory viral panel negative. Wean off pressors keeping mean artery pressure 65. Patient at one point was on be on maximum dose of Levophed, vasopressin, epinephrine. Pressors weaned off and currently patient is on 15 of Levophed and vasopressin has been weaned off. Blood culture: Negative MRSA swab negative. Sputum culture pending. For now continue with empiric vancomycin, meropenem and Flagyl. Continue with stress dose steroids with hydrocortisone 100 mg IV every 6 hourly. Will plan to wean off hydrocortisone once patient become more stable within next 24 to 48 hours. Acute hypoxic respiratory failure : Secondary to severe ARDS : likely secondary to decompensated heart failure, pneumonia, possible HPS(hepatopulmonary syndrome) in the setting of decompensated liver cirrhosis, at this point in time I cannot conclusively rule out possible underlying PE. Sputum Gram stain and culture: Betty albicans, possible colonization. Currently on cautious IV diuresis Monitor x-ray chest Monitor ABG lower extremity Doppler vein: Negative for dvt D-Dimer :11.26 Continue mechanical ventilation Currently appropriately covered with broad-spectrum antibiotics. Empirically on fluconazole Thrombocytopenia: Could be all coming from sepsis, as well as could have chronic thrombocytopenia, in the setting of liver cirrhosis. Peripheral blood smear has been reviewed: Has not shown any schistocytes, showing significant spherocytes Follow DIC panel: Negative 4T score: 2 Monitor platelet count for now. Anemia: LDH:351 Haptoglobin: 156 Direct bilirubin: 2 SHU: Hypernatremia: Possibly secondary to overdiuresis, resulting in intravascular volume depletion Currently on D5 water at 50 cc an hour Monitor serum sodium Hypokalemia: Monitor and replace serum potassium Liver cirrhosis: With concerns for hepatorenal syndrome. Patient is not alcoholic. Hepatitis panel negative. Most likely CALLES. Transaminitis/hyperbilirubinemia: Continue with IV albumin every 8 hourly along with octreotide drip. Patient is on Levophed. Keep mean arterial pressure around 70. Monitor BMP. Acute kidney injury: Monitor BMP every 4 hourly. Strict input output charting. Switch from Bumex drip to Bumex 1 mg daily Repeat urinalysis, urine lites, urine creatinine and eosinophils. High anion gap metabolic acidosis: Most likely in setting of lactic acidosis, acute kidney injury and possible diabetic ketoacidosis. Resolved. Bicarb drip stopped. Monitor ABG daily. Diabetic ketoacidosis: resolved , Was on insulin drip. Currently has been transitioned to LDSSI Monitor fingerstick glucose Lactic acidosis: Trending down. Went as high as 6.6. Trending down to 3.1. Congestive heart failure: EF of 41% with global LV hypokinesia. If patient improves can plan for ischemic work-up. Monitor fluid status. Troponin elevation: Troponin elevated only to 55. With delta of 3 and 6 hours. Most likely in setting of type II MS given septic shock. Glycemic control: Insulin drip. A1c 6. Nutrition: NPO. CODE STATUS: AND PUD prophylaxis: Protonix 40 mg IV every 12 hourly DVT prophylaxis: scds Attestations Medical Necessity Statement*: Continues to be in hospital for management of septic shock. Critical Care Time: The high probability of a clinically significant, sudden or life threatening deterioration of the patient's [] system(s) required my full and direct attention, intervention and personal management. The critical care time is as shown. This time is in addition to time spent performing any reported procedures but includes the following: [x] Data and vital sign review and interpretation [x] Patient assessment, examination and intervention [x] Documentation [x] Medication orders and management Critical Care Time (min): 50 Coding Level of Care Code Critical Care >/= 30 minutes Diagnoses Septic shock A41.9; R65.21 Respiratory failure with hypoxia J96.91 Hepatorenal syndrome K76.7 Acute kidney injury N17.9 High anion gap metabolic acidosis E87.29 DKA (diabetic ketoacidosis) E11.10 Congestive heart failure I50.9 Transaminitis R74.01 Hyperbilirubinemia E80.6 Elevated lactic acid level R79.89 Acute cholecystitis K81.0 Liver cirrhosis secondary to CALLES K75.81; K74.60 Legally blind H54.8 ARDS (adult respiratory distress syndrome) J80 Hypernatremia E87.0 Hypokalemia E87.6 Thrombocytopenia D69.6
--- NOTE | 2022-12-22 17:45 | PC.NURSE ---
SHift SUmmary: Uneventful shift. Patient has been off of sedation since 1000 on 12/21/2022. Patient will startle when you call his name, but does not follow any commands. Gag reflex is sometimes present, but oftentimes not. At the beggining of shift, patient would easily desaturate with any movement, however as the day has gone on he has tolerated more and more repositioning. Complete turn for thorough assessment of back was not possible due to respiratory status. TOtal urine output has been 1750 mL
[2022-12-22 21:52] LABS: Glucose Point of Care 181 mg/dL (70-110)
[2022-12-22] MEDS: artificial tears Op Oint 3.5 gm 1 APPLIC EYE-BOTH (21:57)
[2022-12-22] MEDS: amitriptyline 25 mg Tablet 50 MG PO (21:58)
--- NOTE | 2022-12-22 22:07 | PC.NURSE ---
Pt has four incision sites with 15 maren in total. Incision are approximated well, no redness, warmth or drainage noted to the sites.
[2022-12-23] VITALS (39 sets, daily range): BP systolic 107–193; BP diastolic 79–114; PULSE 54–106; RESP 18–22; TEMP 36.4–37.1; O2SAT 86–97; BMI 47.8
[2022-12-23] MEDS: acetylcysteine 200 mg/mL MDV 10 mL 100 MG INHALATION ×3 (01:37→14:11)
[2022-12-23] MEDS: ipratropium-albuterol 3 mL Neb INHALATION ×3 (01:44→14:11)
[2022-12-23] MEDS: propofol 1,000 MG/100 ML INJ 5.11 MG IV (01:54)
[2022-12-23] MEDS: dextrose 5% 1,000 ML 100 ML IV ×2 (02:37→12:52)
[2022-12-23] MEDS: vancomycin 1,250 MG/250 ML PIGGYBACK 250 MG IV (02:38)
[2022-12-23 03:30] LABS: Basophils % 0.4 %; Eosinophils % 0.2 %; Hemoglobin 12.1 g/dL (11.7-16.6); Lymphocytes # 0.5 10^3/uL (0.8-4.8); Lymphocytes % 9.4 %; Mean Corpuscular HGB Conc 31.8 g/dL (30.0-36.0); Mean Corpuscular Volume 103.5 fl (80-94); Mean Platelet Volume 11.2 fL (7.4-10.4); Monocytes # 0.8 10^3/uL (0.2-0.9); Monocytes % 13.4 %; Neutrophils # 4.13 10^3/uL (1.8-7.7); Neutrophils % 72.9 %; Nucleated Red Blood Cells % 0 %; Platelet Count 47 10^3/cmm (130-400); Red Blood Count 3.67 10^6/uL (4.1-5.3); Red Cell Distribution Width 14.8 % (12.1-15.1); White Blood Count 5.7 10^3/uL (4.0-10.0)
[2022-12-23 03:44] LABS: INR 1.51 (0.8-1.2); Partial Thromboplastin Time 30.6 SECONDS (23.9-36.7)
[2022-12-23 03:45] LABS: Fibrinogen 273 mg/dL (174-498)
[2022-12-23 03:47] LABS: Alanine Aminotransferase 197 U/L (0-41); Albumin Level 3.6 g/dL (3.5-5.2); Alkaline Phosphatase 52 U/L (40-130); Aspartate Amino Transferase 168 U/L (0-40); Blood Urea Nitrogen 41 mg/dL (6-20); Calcium 8.3 mg/dL (8.5-10.5); Carbon Dioxide 39 mmol/L (22-29); Chloride 106 mmol/L (98-107); Globulin 2.3 g/dL (1.3-4.6); Glomerular Filtration Rate 86.7 mL/min (90-130); Glucose 159 mg/dL (65-115); Osmolality Calculated 327 mOsm/kg (285-295); Sodium 152 mmol/L (136-145); Total Bilirubin 6.4 mg/dL (0.15-1.2); Total Protein 5.9 g/dL (6.6-8.7)
[2022-12-23] MEDS: meropenem 1,000 MG in sodium chloride 0.9% (plus) 50 ML 100 MG IV ×2 (04:06→12:09)
[2022-12-23] MEDS: metroNIDAZOLE IV 500 MG/100 ML PREMIX 100 MG IV ×2 (04:06→12:14)
[2022-12-23] MEDS: sodium chloride 3.5% neb 4 mL Neb INHALATION (07:52)
--- NOTE | 2022-12-23 07:53 | PC.NURSE ---
100.834 fentanyl wasted with DADA Ng.
--- NOTE | 2022-12-23 07:56 | PC.NURSE ---
Sedation titrated for compliance with vent. Respiratory reported inability to ventilate patient without adding fentanyl. Patient not following basic commands for this nurse before increasing sedation.
[2022-12-23 08:21] LABS: Glucose Point of Care 153 mg/dL (70-110)
[2022-12-23] MEDS: lidocaine 1% 5 ML in potassium chloride premix 100 ML 26.25 ML IV (08:24)
--- NOTE | 2022-12-23 08:31 | PC.NURSE ---
Dr. Ivy notified of patients need for sedation for ventilation needs. Order received to increase Fentanyl to 150.
--- NOTE | 2022-12-23 08:34 | XR_ITS ---
WS: [id number] XR chest 1V portable [id number] REASON FOR EXAM: decreased ventialtion- tube placement FINDINGS: Endotracheal tube at the thoracic inlet approximately 1 cm superior to the previous positions. Patient is now demonstrating more extensive diffuse airspace consolidation than on the examination of yesterday and earlier this a.m. The air space consolidation pattern is suggestive of pulmonary edema . XR/XR chest 1V portable [id number] IMPRESSION: ET tube position as above. Significantly increased lung opacities compared to the previous day and even fr om earlier this a.m. Probable pulmonary edema.
[2022-12-23] MEDS: propofol 1,000 MG/100 ML INJ 40.91 MG IV (08:40)
[2022-12-23 08:46] LABS: ABG PH Result 7.26 (7.35-7.45); Arterial Blood Gas Hematocrit 35.5 % (42-52); Base Excess ABG 4.5 mmol/L (-2.0-2.0); Blood Gas Operator Identificat GD; Blood Gas Sample Site Not specified; Blood Gas Sample Type Arterial; Carboxyhemoglobin 1.2 %THgb (0.4-20.1); HCO3 ABG 33.5 mmol/L (22-26); HGB O2 Sat 95.3 % (95-100); Ionized Calcium Level - ABG 0.9 mmol/L (1.1-1.4); Methemoglobin 0.6 % (0.4-1.5); Potassium Level - ABG 2.2 mmol/L (3.5-5.0); Total Hemoglobin 11.6 g/dL (14-18)
[2022-12-23 08:47] LABS: Alveolar-Arterial Oxygen Gradi 48.3 mmHg (5-10); Blood Gas Tidal Volume 0.53; Oxygen Device VENT
[2022-12-23 08:49] LABS: ABG PCO2 74.9 mmHg (35-45)
[2022-12-23] MEDS: succinylcholine 20 mg/mL SDV 10mL 100 MG IVP (09:02)
[2022-12-23] MEDS: albumin 25 G/100 ML BAG 60 G IV (09:11)
--- NOTE | 2022-12-23 09:18 | PC.NURSE ---
Verbal order received from Dr. Ivy to keep patient fully sedated.
--- NOTE | 2022-12-23 09:42 | PC.NURSE ---
Dr. Hurtado gave verbal orders for propofol maxed at 80, fentanyl at 150, versed to be at 4 and succinylcholine and etomidate to be used if needed. Family wanted code status changed to Full code. Dr. Ivy calling for a transfer to a higher care facility.
[2022-12-23] MEDS: propofol 1,000 MG/100 ML INJ 51.14 MG IV ×3 (11:06→14:28)
[2022-12-23] MEDS: pantoprazole 40 mg SDV IVP (11:08)
[2022-12-23] MEDS: aspirin 81 mg EC Tablet PO (11:08)
[2022-12-23 12:08] LABS: Glucose Point of Care 164 mg/dL (70-110)
[2022-12-23] MEDS: insulin lispro 100 unit/1 mL SUBCUT (12:09)
--- NOTE | 2022-12-23 12:33 | PM.TDS ---
Transfer Summary Providers Date of Admission: 12/18/22 02:28 Date of Discharge/Transfer: 12/23/22 Attending Provider at Admission: Raine Solroio MD Attending Provider at Transfer: Turner Iyv MD Primary Care Provider: Calderon Montgomery DO Transfer Plans: Anticipated date of transfer: 12/23/22. Diagnoses at Discharge Discharge Diagnosis (1) Acute kidney injury: Status: Acute (2) Septic shock: Status: Acute (3) Community acquired pneumonia: Status: Acute (4) Hyperbilirubinemia: Status: Acute Reason for Visit Reason for Visit RESP. DISTRESS Hospital Course Hospital Course Timothy Salmeron is a 57 year old male with a past medical history of chronic migraine, legally blind, possible asbestosis, presenting to the emergency room with chief complaints of feeling ill over the past 2 days.? Patient describes his symptoms as being generalized weakness, mild abdominal pain and discomfort, multiple episodes of vomiting he estimates 10-12 since onset of symptoms. He was admitted for the management of septic shock initially thought to be secondary to acute cholecystitis, CT abdomen and pelvis done on admission had shown: distended with pericholecystic fluid and cholelithiasis, prominent fluid in the small bowel without dilatation suggestive of an enteritis. Ultrasound gallbladder: Cholelithiasis with mildly distended gallbladder also showing mild wall thickening and pericholecystic fluid. Acute cholecystitis cannot be excluded as suggested by the comparison CT abdomen and pelvis Surgery was on board status post Laparoscopic cholecystostomy, he also ended up getting percutaneous cholecystomy tube placed given concern for possible ascending cholangitis, surgery is also of the opinion that he has significant liver cirrhosis ,based on the postop assessment. Since admission patient has been on broad-spectrum antibiotics namely vancomycin meropenem and metronidazole, blood cultures have been negative. 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 Abnormal LFT with hyperbilirubinemia could be explained possibly due to shock liver in the setting of septic shock, Currently AST ALT alk phos is trending down, though T. bili is trending up. Patient was also managed for Acute hypoxic respiratory failure : Secondary to severe ARDS : likely secondary to decompensated heart failure, pneumonia, possible HPS(hepatopulmonary syndrome) in the setting of decompensated liver cirrhosis, lately patient has also started having pink frothy sputum it could be secondary to pulmonary edema, possibility of DAH cannot be completely ruled out, given the fact that autoimmune etiology of DAH is not suspected, Solu-Medrol was not used. The patient was on a stress dose of hydrocortisone initially in the setting of severe septic shock. patient has been kept on mechanical ventilation, has also received IV Bumex, with good urine output, x-ray chest ABG were monitored. He was also managed for severe thrombocytopenia: Could be all coming from sepsis, as well as could have chronic thrombocytopenia, in the setting of liver cirrhosis.Peripheral blood smear has been reviewed: Has not shown any schistocytes, showing significant spherocytes DIC panel: Negative,4T score: 2,Monitor platelet count for now. Patient was also managed for hypernatremia he was on D5 water as well as free water flushes through NG tube. For decompensated liver cirrhosis: Patient has been nonalcoholic, hepatitis panel is negative, possibility of CALLES exist, given morbid obesity, possible undiagnosed diabetes,. Overall given the nature of critical illness, and absence of MRCP at our facility on vented patient, he is being transferred to [facility].Name of accepting physician is . Physical Exam Narrative: Intubated sedated on mechanical ventilation HENMT: COMMON NORMALS: normocephalic and atraumatic HEAD & SCALP: normocephalic and atraumatic Resp: COMMON NORMALS: clear to auscultation bilaterally EFFORT & INSPECTION: Yes symmetric chest movement AUSCULTATION: clear to auscultation bilaterally OTHER: Diminished air entry bilaterally Cardio: COMMON NORMALS: regular rate, regular rhythm, S1 normal heart sound present, S2 normal heart sound present, No gallops present (Cardio), No murmurs present (Cardio), No rub (Cardio) and Peripheral pulses 2+ throughout RATE: regular rate RHYTHM: regular rhythm HEART SOUNDS: S1 normal heart sound present and S2 normal heart sound present PERIPHERAL PULSES: Peripheral pulses 2+ throughout GI: COMMON NORMALS: Normal to inspection, nondistended, normoactive bowel sounds present, Soft to palpation, non-tender, No hepatosplenomegaly present and no masses AUSCULTATION: Yes normoactive bowel sounds PALPATION: Yes Soft to palpation and Yes No hepatosplenomegaly present RECTAL EXAM: Yes deferred Extremity: COMMON NORMALS: no clubbing, cyanosis or edema and no pedal edema Urinary Catheter Management: Ng: Cath Placed During This Visit: yes Reason for Continuing Indwelling Catheter: Accurate Measurement of Urinary Output in Critically Ill Patients Urinary Catheter Date of Insertion: 12/18/22 Urinary Catheter Time of Insertion: 07:15 TS Data Studies Completed and Pending Pending at discharge Category Date Time Status ABG FULL [Arterial Blood Gas Full] AM LABS Lab 12/21/22 04:00 Results BMP [Basic Metabolic Panel] Routine Lab 12/23/22 13:30 Ordered Body Fluid Culture & GS Routine Lab 12/20/22 14:20 Results COVID OZH [Coronavirus PCR] Routine Lab 12/23/22 12:22 Ordered Fecal Occult Blood [Immunochemical Fecal OCB] Routine Lab 12/18/22 06:25 Uncollected Fibrin Degradation Product AM LABS Lab 12/24/22 04:00 Ordered Fibrinogen AM LABS Lab 12/24/22 04:00 Ordered PT [Prothrombin Time INR] AM LABS Lab 12/24/22 04:00 Ordered PTT [Partial Thromboplastin Time] AM LABS Lab 12/24/22 04:00 Ordered SARS Covid-2 Antigen Routine Lab 12/23/22 12:22 Ordered Sputum Culture and Gram Stain Routine Lab 12/21/22 11:53 Uncollected Vancomycin Trough Timed Lab 12/23/22 13:30 Ordered Labs from last 24 hours 12/23/22 12/23/22 12/23/22 12:05 08:25 08:14 WBC RBC Hgb Hct MCV MCH MCHC RDW Plt Count MPV Neut % (Auto) Lymph % (Auto) [place] % (Auto) Eos % (Auto) Baso % (Auto) Neut # (Auto) Lymph # (Auto) [place] # (Auto) Eos # (Auto) Baso # (Auto) Nucleated RBC % (auto) Nucleated RBCs # PT INR APTT Fibrinogen Fibrin Degrad Products Specimen Type Arterial Sample Site Not specified ABG pH 7.26 L ABG pCO2 74.9 H* ABG pO2 109.0 H ABG HCO3 33.5 H ABG O2 Saturation 97.0 ABG Base Excess 4.5 H Contreras Test N/a A-a O2 Gradient 48.3 H Hematocrit 35.5 L Hgb O2 Saturation 95.3 Carboxyhemoglobin 1.2 Methemoglobin 0.6 Total Hemoglobin 11.6 L Ionized Calcium 0.9 L O2 Delivery Device Vent FiO2 80.0 Tidal Volume 0.53 PEEP 8.0 Chemistry Quality Control Analyst ID Gd Sodium 154.0 H Potassium 2.2 L Chloride Carbon Dioxide Anion Gap BUN Creatinine GFR Calculation Glucose 129.0 H POC Glucose 164 H 153 H Calculated Osmolality Calcium Total Bilirubin AST ALT Alkaline Phosphatase Total Protein Albumin Globulin 12/23/22 12/23/22 12/23/22 03:16 03:16 03:16 WBC RBC Hgb Hct MCV MCH MCHC RDW Plt Count MPV Neut % (Auto) Lymph % (Auto) Independence % (Auto) Eos % (Auto) Baso % (Auto) Neut # (Auto) Lymph # (Auto) Independence # (Auto) Eos # (Auto) Baso # (Auto) Nucleated RBC % (auto) Nucleated RBCs # PT 18.70 H INR 1.51 H APTT 30.6 Fibrinogen 273 Fibrin Degrad Products Pos, >=40 H Specimen Type Sample Site ABG pH ABG pCO2 ABG pO2 ABG HCO3 ABG O2 Saturation ABG Base Excess Contreras Test A-a O2 Gradient Hematocrit Hgb O2 Saturation Carboxyhemoglobin Methemoglobin Total Hemoglobin Ionized Calcium O2 Delivery Device FiO2 Tidal Volume PEEP Chemistry Quality Control Analyst ID Sodium 152 H Potassium 3.0 L Chloride 106 Carbon Dioxide 39 H Anion Gap 10.0 BUN 41 H Creatinine 0.9 GFR Calculation 86.7 L Glucose 159 H POC Glucose Calculated Osmolality 327 H Calcium 8.3 L Total Bilirubin 6.4 H AST 168 H ALT 197 H Alkaline Phosphatase 52 Total Protein 5.9 L Albumin 3.6 Globulin 2.3 12/23/22 12/22/22 12/22/22 03:16 21:50 16:16 WBC 5.7 RBC 3.67 L Hgb 12.1 Hct 38.0 L MCV 103.5 H MCH 33.0 MCHC 31.8 RDW 14.8 Plt Count 47 L MPV 11.2 H Neut % (Auto) 72.9 Lymph % (Auto) 9.4 Independence % (Auto) 13.4 Eos % (Auto) 0.2 Baso % (Auto) 0.4 Neut # (Auto) 4.13 Lymph # (Auto) 0.5 L Independence # (Auto) 0.8 Eos # (Auto) 0.0 Baso # (Auto) 0.0 Nucleated RBC % (auto) 0 Nucleated RBCs # 0.0 PT INR APTT Fibrinogen Fibrin Degrad Products Specimen Type Sample Site ABG pH ABG pCO2 ABG pO2 ABG HCO3 ABG O2 Saturation ABG Base Excess Contreras Test A-a O2 Gradient Hematocrit Hgb O2 Saturation Carboxyhemoglobin Methemoglobin Total Hemoglobin Ionized Calcium O2 Delivery Device FiO2 Tidal Volume PEEP Chemistry Quality Control Analyst ID Sodium Potassium Chloride Carbon Dioxide Anion Gap BUN Creatinine GFR Calculation Glucose POC Glucose 181 H 177 H Calculated Osmolality Calcium Total Bilirubin AST ALT Alkaline Phosphatase Total Protein Albumin Globulin Completed Studies During Hospitalization Category Date Time Status CT angio chest w abd pel w con Stat Cat Scan 12/17/22 23:48 Completed CXRP [XR chest 1V portable [id number]] Stat Exams 12/17/22 23:48 Completed XR chest 1V portable [id number] Routine Exams 12/18/22 20:27 Completed XR chest 1V portable [id number] Routine Exams 12/20/22 12:11 Completed XR chest 1V portable [id number] Routine Exams 12/21/22 08:46 Completed XR chest 1V portable [id number] Routine Exams 12/22/22 08:25 Completed XR chest 1V portable [id number] Stat Exams 12/17/22 22:41 Completed XR chest 1V portable [id number] Stat Exams 12/18/22 14:38 Completed XR chest 1V portable [id number] Stat Exams 12/23/22 08:34 Completed CV. echo complete* [id number] Routine Ultrasound 12/18/22 06:05 Completed US gall bladder [id number] Routine Ultrasound 12/18/22 02:36 Completed US venous duplex lower extremity bilat [CV venous Ultrasound 12/21/22 08:43 [place] [id number]] Routine Laboratory Last Values WBC 5.7 10^3/uL (4.0-10.0) 12/23/22 03:16 RBC 3.67 10^6/uL (4.1-5.3) L 12/23/22 03:16 Hgb 12.1 g/dL (11.7-16.6) 12/23/22 03:16 Hct 38.0 % (42.0-52.0) L 12/23/22 03:16 MCV 103.5 fl (80-94) H 12/23/22 03:16 MCH 33.0 pg (28.0-34.0) 12/23/22 03:16 MCHC 31.8 g/dL (30.0-36.0) 12/23/22 03:16 RDW 14.8 % (12.1-15.1) 12/23/22 03:16 Plt Count 47 10^3/cmm (130-400) L 12/23/22 03:16 MPV 11.2 fL (7.4-10.4) H 12/23/22 03:16 Neut % (Auto) 72.9 % 12/23/22 03:16 Lymph % (Auto) 9.4 % 12/23/22 03:16 Independence % (Auto) 13.4 % 12/23/22 03:16 Eos % (Auto) 0.2 % 12/23/22 03:16 Baso % (Auto) 0.4 % 12/23/22 03:16 Neut # (Auto) 4.13 10^3/uL (1.8-7.7) 12/23/22 03:16 Lymph # (Auto) 0.5 10^3/uL (0.8-4.8) L 12/23/22 03:16 Independence # (Auto) 0.8 10^3/uL (0.2-0.9) 12/23/22 03:16 Eos # (Auto) 0.0 10^3/uL (0.0-0.8) 12/23/22 03:16 Baso # (Auto) 0.0 10^3/uL (0.0-0.1) 12/23/22 03:16 Nucleated RBC % (auto) 0 % 12/23/22 03:16 Total Counted 100 (0-100) 12/18/22 08:12 Atypical Lymphs % 0.0 % (0-5) 12/18/22 08:12 Absolute Neutrophils 34.2 10^3/cmm (1.4-6.5) H 12/18/22 08:12 Segmented Neutrophils 80 % 12/18/22 08:12 Abs Segm Neuts (Man) 29.1 10/cmm (1.6-7.1) H 12/18/22 08:12 Band Neutrophils 14.0 % 12/18/22 08:12 Abs Band Neuts (Man) 5.1 10^3/cmm (0.0-1.2) H 12/18/22 08:12 Absolute Lymphocytes 0.4 10^3/cmm (1.2-3.4) L 12/18/22 08:12 Lymphocytes (Manual) 1 % 12/18/22 08:12 Monocytes (Manual) 5.0 % 12/18/22 08:12 Absolute Monocytes 1.8 10^3/cmm (0.1-0.6) H 12/18/22 08:12 Eosinophils (Manual) 0 % 12/18/22 08:12 Absolute Eosinophils 0.0 10^3/cmm (0.0-0.7) 12/18/22 08:12 Basophils (Manual) 0.0 % 12/18/22 08:12 Absolute Basophils 0.0 10^3/cmm (0.0-0.2) 12/18/22 08:12 Nucleated RBCs # 0.0 /100WBC 12/23/22 03:16 Platelet Estimate Decreased (Normal) 12/18/22 08:12 Anisocytosis Trace 12/18/22 08:12 Macrocytosis Trace 12/18/22 08:12 Haptoglobin 156.0 mg/L (30-200) 12/22/22 00:55 PT 18.70 SECONDS (12.1-14.9) H 12/23/22 03:16 INR 1.51 (0.8-1.2) H 12/23/22 03:16 APTT 30.6 SECONDS (23.9-36.7) 12/23/22 03:16 Fibrinogen 273 mg/dL (174-498) 12/23/22 03:16 Fibrin Degrad Products Pos, >=40 ug/mL (NEG) H 12/23/22 03:16 D-Dimer 11.26 ug/mIFEU (0-0.59) H 12/22/22 00:55 Specimen Type Arterial 12/23/22 08:25 Sample Site Not specified 12/23/22 08:25 ABG pH 7.26 (7.35-7.45) L 12/23/22 08:25 ABG pCO2 74.9 mmHg (35-45) H* 12/23/22 08:25 ABG pO2 109.0 mmHg (80.0-100.0) H 12/23/22 08:25 ABG HCO3 33.5 mmol/L (22-26) H 12/23/22 08:25 ABG O2 Saturation 97.0 12/23/22 08:25 ABG Base Excess 4.5 mmol/L (-2.0-2.0) H 12/23/22 08:25 Contreras Test N/a 12/23/22 08:25 VBG pH 7.37 (7.32-7.42) 12/17/22 23:07 VBG pCO2 45.6 mmHg (41-51) 12/17/22 23:07 VBG pO2 43.9 mmHg (25-40) H 12/17/22 23:07 VBG HCO3 26.4 mmol/L (24-28) 12/17/22 23:07 VBG Base Excess 0.7 mmol/L (-3.0-3.0) 12/17/22 23:07 VBG Hematocrit 45.5 % (42-52) 12/17/22 23:07 A-a O2 Gradient 48.3 mmHg (5-10) H 12/23/22 08:25 Hematocrit 35.5 % (42-52) L 12/23/22 08:25 Hgb O2 Saturation 95.3 % (95-100) 12/23/22 08:25 Carboxyhemoglobin 1.2 %THgb (0.4-20.1) 12/23/22 08:25 Methemoglobin 0.6 % (0.4-1.5) 12/23/22 08:25 Total Hemoglobin 11.6 g/dL (14-18) L 12/23/22 08:25 Sodium 154.0 mmol/L (131-143) H 12/23/22 08:25 Potassium 2.2 mmol/L (3.5-5.0) L 12/23/22 08:25 Glucose 129.0 mg/dL (70-115) H 12/23/22 08:25 Ionized Calcium 0.9 mmol/L (1.1-1.4) L 12/23/22 08:25 Respiration Rate 18.0 % 12/21/22 04:00 O2 Delivery Device Vent 12/23/22 08:25 O2 Liters/Min 35.0 % 12/17/22 23:07 FiO2 80.0 % 12/23/22 08:25 Tidal Volume 0.53 12/23/22 08:25 PEEP 8.0 cmH20 12/23/22 08:25 Specimen Drawn By Oleg 12/21/22 04:00 Chemistry Quality Control Analyst ID Gd 12/23/22 08:25 Sodium 152 mmol/L (136-145) H 12/23/22 03:16 Potassium 3.0 mmol/L (3.5-5.1) L 12/23/22 03:16 Chloride 106 mmol/L (98-107) 12/23/22 03:16 Carbon Dioxide 39 mmol/L (22-29) H 12/23/22 03:16 Anion Gap 10.0 (5-19) 12/23/22 03:16 BUN 41 mg/dL (6-20) H 12/23/22 03:16 Creatinine 0.9 mg/dL (0.7-1.2) 12/23/22 03:16 GFR Calculation 86.7 mL/min (90-130) L 12/23/22 03:16 Glucose 159 mg/dL (65-115) H 12/23/22 03:16 POC Glucose 164 mg/dL (70-110) H 12/23/22 12:05 Estimat Average Glucose 126 12/19/22 05:20 Hemoglobin A1c 6.0 % (4.0-6.0) 12/19/22 05:20 Calculated Osmolality 327 mOsm/kg (285-295) H 12/23/22 03:16 Lactic Acid 3.7 mmol/L (0.5-2.2) H 12/20/22 04:45 Lactic Acid (Sepsis) 3.1 mmol/L (0.5-2.2) H 12/20/22 07:46 Lactate 3.1 mmol/L (0.5-2.2) H 12/19/22 11:06 Calcium 8.3 mg/dL (8.5-10.5) L 12/23/22 03:16 Magnesium 1.9 mg/dL (1.7-2.3) 12/20/22 04:45 Iron 23 ug/dL (59-158) L 12/18/22 04:00 TIBC 220 mcg/dl 12/18/22 04:00 % Saturation 10.4 % (20-50) L 12/18/22 04:00 Unsat Iron Binding 197 ug/dL (112-347) 12/18/22 04:00 Total Bilirubin 6.4 mg/dL (0.15-1.2) H 12/23/22 03:16 Direct Bilirubin 2.00 mg/dL (0.00-0.30) H 12/22/22 00:55 AST 168 U/L (0-40) H 12/23/22 03:16 ALT 197 U/L (0-41) H 12/23/22 03:16 Alkaline Phosphatase 52 U/L (40-130) 12/23/22 03:16 Lactate Dehydrogenase 351 U/L (135-225) H 12/22/22 00:55 Troponin T Baseline 55 ng/L (0-15) H 12/17/22 22:50 Troponin T 120 Minute 54.36 ng/L (0-15) H 12/18/22 00:53 Delta Troponin T -0.64 ABS# (0-10) L 12/18/22 00:53 Troponin T Hi Sens 6Hr 58.52 ng/L (0-15) H 12/18/22 04:00 Troponin T Hi Sens 6Hr Delta 3.52 ng/L (0-12) 12/18/22 04:00 NT-Pro-B Natriuret Pep 1082 pg/mL (0-125) H 12/17/22 22:50 Total Protein 5.9 g/dL (6.6-8.7) L 12/23/22 03:16 Albumin 3.6 g/dL (3.5-5.2) 12/23/22 03:16 Globulin 2.3 g/dL (1.3-4.6) 12/23/22 03:16 Triglycerides 90 mg/dL (0-150) 12/19/22 05:20 Cholesterol 105 mg/dL (0-200) 12/19/22 05:20 LDL Cholesterol, Calc 26 mg/dL (50-129) L 12/19/22 05:20 Total VLDL Cholesterol 18 mg/dL (0-30) 12/19/22 05:20 HDL Cholesterol 61 mg/dL (60-100) 12/19/22 05:20 Cholesterol/HDL Ratio 1.72 mg/dL (1.0-5.00) 12/19/22 05:20 Lipase 10 U/L (13-60) L 12/19/22 16:32 Procalcitonin > 100.00 ng/mL (0-0.5) H 12/21/22 03:10 TSH 1.64 uIU/mL (0.27-4.20) 12/18/22 04:00 Random Cortisol 106.80 ug/dL (2.47-19.5) H 12/21/22 03:10 Urine Color Yellow (Yellow) 12/19/22 17:30 Urine Appearance Clear (CLEAR) 12/19/22 17:30 Urine pH 5 (5-7) 12/19/22 17:30 Ur Specific [place] 1.015 (1.005-1.030) 12/19/22 17:30 Urine Protein Neg (Negative) 12/19/22 17:30 Urine Glucose (UA) Norm (Normal) 12/19/22 17:30 Urine Ketones Negative (Negative) 12/19/22 17:30 Urine Blood 2+ (Negative) H 12/19/22 17:30 Urine Nitrate Negative (Negative) 12/19/22 17:30 Urine Bilirubin Neg (Negative) 12/19/22 17:30 Urine Urobilinogen Norm mg/dL (Negative) 12/19/22 17:30 Ur Leukocyte Esterase Negative (Negative) 12/19/22 17:30 Urine RBC 0-4 /hpf (0-2) H 12/19/22 17:30 Urine WBC None /hpf (0-5) 12/19/22 17:30 Ur Eosinophil Smear 0 (0-0) 12/19/22 17:30 Ur Squamous Epith Cells None /hpf (0-5) 12/19/22 17:30 Amorphous Sediment Not Reportable 12/19/22 17:30 Urine Bacteria Trace /hpf (NONE) 12/19/22 17:30 Hyaline Casts 0-4 /lpf H 12/18/22 01:45 Urine Mucus Trace /hpf 12/19/22 17:30 Urine Eosinophils No eosinophils seen 12/19/22 17:30 Ur Random Sodium 104 mmol/L 12/19/22 17:30 Ur Random Potassium 18 mmol/L 12/19/22 17:30 Ur Random Chloride 105 mmol/L 12/19/22 17:30 Urine Creatinine 22 mg/dL (39-259) L 12/19/22 17:30 Nasal Influ A H1 2009 PCR Cancelled 12/18/22 08:35 Nasal Influ A H1 2009 PCR Not detected (NOT DETECT) 12/18/22 08:35 Vancomycin Trough 21.4 ug/mL (10-15) H 12/22/22 00:55 Urine Opiates Screen Positive ng/mL (Negative) H 12/18/22 08:10 Ur Barbiturates Screen Negative ng/mL (Negative) 12/18/22 08:10 Ur Phencyclidine Scrn Negative ng/mL (Negative) 12/18/22 08:10 Ur Amphetamines Screen Negative ng/mL (Negative) 12/18/22 08:10 U Benzodiazepines Scrn Negative ng/mL (Negative) 12/18/22 08:10 Urine Cocaine Screen Negative ng/mL (Negative) 12/18/22 08:10 U Marijuana (THC) Screen Negative ng/mL (Negative) 12/18/22 08:10 Adenovirus (PCR) Not detected (NOT DETECT) 12/18/22 08:35 C. pneumoniae DNA (PCR) Not detected (NOT DETECT) 12/18/22 08:35 Coronavirus 229E (PCR) Not detected (NOT DETECT) 12/18/22 08:35 Hepatitis A IgM Ab Non-reactive (Nonreactive) 12/18/22 13:55 Hep Bs Antigen Non-reactive (Nonreactive) 12/18/22 13:55 Hep Bs Antibody 144.1 (11.5-1000) 12/18/22 13:55 Hep B Core Total Ab Non-reactive (Nonreactive) 12/18/22 13:55 Hepatitis C Antibody Non-reactive (Nonreactive) 12/18/22 13:55 Human Metapneumovir PCR Not detected (NOT DETECT) 12/18/22 08:35 Influenza A (H1) PCR Cancelled 12/18/22 08:35 Influenza A (H1) PCR Not detected (NOT DETECT) 12/18/22 08:35 Influenza A (H3) PCR Cancelled 12/18/22 08:35 Influenza A (H3) PCR Not detected (NOT DETECT) 12/18/22 08:35 Influenza Type A Ag Cancelled 12/18/22 08:35 Influenza Type A (PCR) Cancelled 12/18/22 08:35 Influenza Type A (PCR) Not detected (NOT DETECT) 12/18/22 08:35 Influenza Type B Ag Cancelled 12/18/22 08:35 Influenza Type B (PCR) Cancelled 12/18/22 08:35 Influenza Type B (PCR) Not detected (NOT DETECT) 12/18/22 08:35 M. pneumoniae (PCR) Not detected (NOT DETECT) 12/18/22 08:35 Parainfluenza 1 (PCR) Not detected (NOT DETECT) 12/18/22 08:35 Parainfluenza 2 (PCR) Not detected (NOT DETECT) 12/18/22 08:35 Parainfluenza 3 (PCR) Not detected (NOT DETECT) 12/18/22 08:35 Parainfluenza 4 (PCR) Not detected (NOT DETECT) 12/18/22 08:35 RSV Type A (PCR) Not detected (NOT DETECT) 12/18/22 08:35 RSV Type B (PCR) Not detected (NOT DETECT) 12/18/22 08:35 Entero/Rhino (PCR) Not detected (NOT DETECT) 12/18/22 08:35 SARS-CoV-2 (PCR) Not detected (NOT DETECT) 12/18/22 08:35 SARS-CoV-2 Ag (Rapid) negative (Negative) 12/17/22 23:01 Blood Type O Positive 12/17/22 23:07 Rho(D) Type Positive 12/17/22 23:07 Antibody Screen Not Reportable 12/17/22 23:07 PEG Antibody Screen Negative 12/17/22 23:07 SHU, Poly Interpret Negative 12/22/22 00:55 Radiology Impressions Chest/Abdomen/Pelvis CT 12/17/22 23:48 IMPRESSION: 1. Negative for pulmonary embolus. 2. Cardiomegaly and coronary artery atherosclerotic calcifications. 3. Bilateral atelectasis versus infiltrate. 4. Right-sided Port-A-Cath. IMPRESSION: 1. Gallbladder is distended with pericholecystic fluid and cholelithiasis, ultrasound could further evaluate this as findings are somewhat concerning for cholecystitis based on CT appearance. 2. Several right kidney cysts and lower pole parenchymal calcifications, similar to prior exam. 3. Prominent fluid in the small bowel without dilation suggestive of an enteritis. 4. Diverticulosis without diverticulitis. 5. Small amount of nonspecific fluid in the pelvis. COMMENTS: Consistent with the [employer]'s Incidental Findings Committee white paper (J Am Eric Radiol 2018): Any incidental renal lesion less than 1 cm or classified as too small to characterize, or any incidental cystic renal lesion characterized as simple-appearing, is likely benign. No follow-up imaging is recommended for these lesions per consensus recommendations based on imaging criteria. Gallbladder Ultrasound 12/18/22 02:36 IMPRESSION: Cholelithiasis with mildly distended gallbladder also showing mild wall thickening and pericholecystic fluid. Acute cholecystitis cannot be excluded as suggested by the comparison CT abdomen and pelvis. Wall thickening and surrounding fluid could also be represent secondary findings related to pathology such as underlying cardiac disease. Clinical correlation necessary. HIDA scan would provide greater specificity. Chest X-Ray 12/23/22 08:34 IMPRESSION: ET tube position as above. Significantly increased lung opacities compared to the previous day and even from earlier this a.m. Probable pulmonary edema. Recent Clincial Data Last Vital Signs Temp 97.6 F 12/23/22 09:30 Pulse 60 12/23/22 11:00 Resp 18 12/23/22 11:24 BP 141/91 12/23/22 11:00 Pulse Ox 97 12/23/22 11:24 O2 Del Method 12/23/22 11:00 O2 Flow Rate 40 12/18/22 10:15 FiO2 80 12/23/22 11:24 Vital Signs Temp Pulse Resp BP Pulse Ox O2 Del Method FiO2 12/23/22 11:24 18 97 80 12/23/22 11:00 60 141/91 95 Mechanical Ventilation 12/23/22 10:30 103 H 141/95 97 Mechanical Ventilation 12/23/22 10:00 79 133/79 97 Mechanical Ventilation 12/23/22 09:30 97.6 F 85 119/87 95 Mechanical Ventilation 12/23/22 09:00 105 H 129/86 95 Mechanical Ventilation 12/23/22 08:30 103 H 107/86 93 Mechanical Ventilation 12/23/22 08:00 66 159/114 92 Mechanical Ventilation 12/23/22 07:30 94 159/114 94 Mechanical Ventilation 12/23/22 07:00 99 144/93 92 Mechanical Ventilation 12/23/22 09:11 19 H 95 80 12/23/22 08:13 71 12/23/22 08:02 18 94 80 12/23/22 07:52 97 20 H 92 Mechanical Ventilation 80 12/23/22 06:00 98.4 F 106 H 193/101 91 Mechanical Ventilation 12/23/22 05:30 59 L 193/101 90 12/23/22 05:00 59 L 175/100 92 12/23/22 04:30 64 175/100 91 12/23/22 06:00 61 12/23/22 04:00 98.6 F 59 L 18 163/99 90 Mechanical Ventilation 12/23/22 03:30 93 163/99 92 12/23/22 03:00 60 152/103 92 12/23/22 02:30 62 152/103 93 12/23/22 02:00 98.4 F 70 18 127/85 92 Mechanical Ventilation 12/23/22 01:30 81 127/85 92 12/23/22 01:00 87 166/109 91 12/23/22 03:39 18 92 80 12/23/22 05:45 20 H 92 80 12/23/22 01:39 22 H 92 80 12/23/22 01:37 79 19 H 92 Mechanical Ventilation 80 Intake & Output/Weight 12/21/22 12/22/22 12/23/22 12/24/22 06:59 06:59 06:59 06:59 Intake Total 3497.187 / 3497.187 2732.531 / 2732.531 3075.833 / 3075.833 280.563 / 280.563 Output Total 6800 / 6800 3750 / 3750 3200 / 3200 Balance -3302.813 / -3302.813 -1017.469 / -1017.469 -124.167 / -124.167 280.563 / 280.563 Weight 165.552 kg 165.108 kg 164.473 kg Vitals Last Vital Signs Temp 97.6 F 12/23/22 09:30 Pulse 60 12/23/22 11:00 Resp 18 12/23/22 11:24 BP 141/91 12/23/22 11:00 Pulse Ox 97 12/23/22 11:24 O2 Del Method 12/23/22 11:00 O2 Flow Rate 40 12/18/22 10:15 FiO2 80 12/23/22 11:24 TS Medications Medications Acetylcysteine (Acetylcysteine 200 Mg/Ml Mdv 10 Ml) 100 mg INHALATION Q6H.RESP [place] Last Admin: 12/23/22 07:48 Dose: 100 mg Albuterol/Ipratropium (Ipratropium-Albuterol 3 Ml Neb) 3 ml INHALATION Q6H.RESP [place] Last Admin: 12/23/22 07:52 Dose: 3 ml Amitriptyline HCl (Amitriptyline 25 Mg Tablet) 50 mg PO BEDTIME [facility] Last Admin: 12/22/22 21:58 Dose: 50 mg Artificial Tears (Artificial Tears Op Oint 3.5 Gm) 1 applic EYE-BOTH BEDTIME [facility] Last Admin: 12/22/22 21:57 Dose: 1 applic Aspirin (Aspirin 81 Mg Ec Tablet) 81 mg PO DAILY [facility] Last Admin: 12/23/22 11:08 Dose: 81 mg Bumetanide (Bumetanide 0.25 Mg/Ml Sdv 4 Ml) 1 mg IVP DAILY [facility] Last Admin: 12/22/22 09:30 Dose: 1 mg Norepinephrine Bitartrate 8 mg (/ Dextrose) 508 mls @ 0 mls/hr IV .Q0M [facility]; Protocol Last Titration: 12/20/22 23:49 Dose: 0 mcg/min, 0 mls/hr Albumin Human (Albumin) 25 g in 100 mls @ 60 mls/hr IV Q8H [facility] Last Infusion: 12/23/22 11:16 Dose: Infused Metronidazole (Flagyl Iv) 500 mg in 100 mls @ 100 mls/hr IV Q8H [facility]; Protocol Last Admin: 12/23/22 12:14 Dose: 100 mls/hr Propofol (Diprivan) 1,000 mg in 100 mls @ 0 mls/hr IV .Q0M [facility]; Protocol Last Admin: 12/23/22 11:06 Dose: 50 mcg/kg/min, 51.14 mls/hr Fentanyl 2,500 mcg/ Sodium (Chloride) 250 mls @ 0 mls/hr IV .Q0M [facility]; Protocol Last Titration: 12/23/22 08:30 Dose: 150 mcg/hr, 15 mls/hr Dextrose (D5w) 1,000 mls @ 100 mls/hr IV .Q10H [facility] Last Admin: 12/23/22 02:37 Dose: 100 mls/hr Fluconazole 100 mg/ N/A 50 mls @ 50 mls/hr IV Q24H [facility] Last Infusion: 12/22/22 22:03 Dose: Infused Vancomycin/PEG/NADA/Lysine/Water (Vancocin) 1,250 mg in 250 mls @ 250 mls/hr IV Q12H [facility] Last Admin: 12/23/22 02:38 Dose: 250 mls/hr Meropenem 1,000 mg/ Sodium (Chloride) 50 mls @ 100 mls/hr IV Q8H [facility]; Protocol Last Admin: 12/23/22 12:09 Dose: 100 mls/hr Midazolam HCl 100 mg/ Sodium (Chloride) 100 mls @ 0 mls/hr IV .Q0M [facility]; Protocol Last Titration: 12/23/22 09:42 Dose: 4 mg/hr, 4 mls/hr Insulin Human Lispro (Insulin Lispro 100 Unit/1 Ml) 0 unit SUBCUT WM&BEDTIME [facility]; Protocol Last Admin: 12/23/22 12:09 Dose: 2 unit Pantoprazole Sodium (Pantoprazole 40 Mg Sdv) 40 mg IVP DAILY [facility] Last Admin: 12/23/22 11:08 Dose: 40 mg Discontinued Medications Albuterol Sulfate (Albuterol 2.5 Mg/3 Ml Neb) 2.5 mg INHALATION ONCE ONE Stop: 12/17/22 22:41 Last Admin: 12/17/22 22:59 Dose: 2.5 mg Bumetanide (Bumetanide 0.25 Mg/Ml Sdv 4 Ml) 1 mg IVP Q12H [facility] Bumetanide (Bumetanide 0.25 Mg/Ml Sdv 4 Ml) 1 mg IVP Q8H [facility] Last Admin: 12/19/22 18:05 Dose: 1 mg Bumetanide (Bumetanide 0.25 Mg/Ml Sdv 4 Ml) 1 mg IVP BID [facility] Bumetanide (Bumetanide 0.25 Mg/Ml Sdv 4 Ml) 1 mg IVP ONCE ONE Stop: 12/20/22 17:51 Last Admin: 12/20/22 18:14 Dose: 1 mg Bupivacaine HCl (Bupivacaine 0.5% Inj 30 Ml) Confirm Administered Dose 30 ml .ROUTE .STK-MED ONE Stop: 12/18/22 10:58 Bupivacaine HCl (Bupivacaine 0.5% Inj 30 Ml) 30 ml INJECTION ONCE ONE Stop: 12/18/22 11:17 Last Admin: 12/18/22 11:19 Dose: 7 ml Calcium Chloride (Calcium Chloride 10% Syr 10 Ml) Confirm Administered Dose 1 gm .ROUTE .STK-MED ONE Stop: 12/18/22 10:08 Dexamethasone (Dexamethasone 4 Mg/Ml Inj) Confirm Administered Dose 4 mg .ROUTE .STK-MED ONE Stop: 12/18/22 09:56 Dextrose (Dextrose 50% Syringe 50 Ml) 50 ml IVP ONCE ONE Stop: 12/18/22 19:57 Last Admin: 12/18/22 20:14 Dose: 50 ml Dextrose (Dextrose 50% Syringe 50 Ml) 25 ml IVP ONCE PRN; Protocol PRN Reason: hypoglycemia protocol Dextrose (Dextrose 50% Syringe 50 Ml) 50 ml IVP PRN PRN; Protocol PRN Reason: hypoglycemia protocol Enoxaparin Sodium (Enoxaparin 40 Mg/0.4 Ml Syringe) 40 mg SUBCUT Q24H [facility] Epinephrine HCl (Epinephrine 1 Mg/Ml Inj) Confirm Administered Dose 1 mg .ROUTE .STK-MED ONE Stop: 12/18/22 11:10 Epinephrine HCl (Epinephrine 0.1 Mg/Ml Syr 10 Ml) 2 mg .ROUTE .STK-MED ONE Stop: 12/18/22 17:01 Etomidate (Etomidate 2 Mg/Ml Inj Sdv 10 Ml) 20 mg IVP NOW ONE Stop: 12/23/22 09:33 Fentanyl (Fentanyl 50 Mcg/Ml Inj 2ml) Confirm Administered Dose 100 mcg .ROUTE .STK-MED ONE Stop: 12/18/22 09:56 Furosemide (Furosemide 10 Mg/Ml Sdv 10ml) 100 mg IVP ONCE ONE Stop: 12/18/22 19:56 Last Admin: 12/18/22 20:11 Dose: 100 mg Glucagon (Glucagon 1 Mg/Ml Inj 1 Ml) 1 mg IM ONCE PRN; Protocol PRN Reason: Adult Acute Hypoglycemia Prot Heparin Sodium (Porcine) (Heparin 5,000 Unit/Ml Inj 1 Ml) 0 unit IV PRN PRN; Protocol PRN Reason: Heparin weight-base protocol Heparin Sodium (Porcine) (Heparin 5,000 Unit/Ml Inj 1 Ml) 5,000 unit SUBCUT Q12H [facility] Last Admin: 12/19/22 21:25 Dose: 5,000 unit Hydrocortisone Sodium Succinate (Hydrocortisone 100 Mg/2 Ml Sdv) 100 mg IVP Q6H [facility] Last Admin: 12/20/22 14:26 Dose: 100 mg Hydrocortisone Sodium Succinate (Hydrocortisone 100 Mg/2 Ml Sdv) 50 mg IVP Q6H [facility] Last Admin: 12/21/22 07:48 Dose: 50 mg Hydrocortisone Sodium Succinate (Hydrocortisone 100 Mg/2 Ml Sdv) 50 mg IVP Q12H [facility] Last Admin: 12/22/22 19:44 Dose: 50 mg Sodium Chloride (Sodium Chloride 0.9%) 1,000 mls @ 999 mls/hr IV .Q1H1M ONE Stop: 12/17/22 23:59 Last Infusion: 12/18/22 00:23 Dose: Infused Norepinephrine Bitartrate 4 mg (/ Dextrose) 254 mls @ 0 mls/hr IV .Q0M [facility]; Protocol Last Titration: 12/18/22 19:17 Dose: Infused Vancomycin HCl 1,000 mg/ (Sodium Chloride) 250 mls @ 250 mls/hr IV ONCE ONE; Protocol Stop: 12/18/22 00:08 Last Infusion: 12/18/22 03:53 Dose: Infused Piperacillin Sod/Tazobactam (Sod 3.375 gm/ Sodium Chloride) 50 mls @ 100 mls/hr IV ONCE ONE; Protocol Stop: 12/17/22 23:38 Last Infusion: 12/18/22 02:17 Dose: Infused Sodium Chloride (Sodium Chloride 0.9%) 1,000 mls @ 999 mls/hr IV .Q1H1M ONE Stop: 12/18/22 01:11 Last Infusion: 12/18/22 02:16 Dose: Infused Sodium Chloride (Sodium Chloride 0.9%) 500 mls @ 999 mls/hr IV .Q31M ONE Stop: 12/18/22 00:48 Last Infusion: 12/18/22 02:16 Dose: Infused Vasopressin 100 unit/ Sodium (Chloride) 100 mls @ 0 mls/hr IV .Q0M [facility]; Protocol Last Titration: 12/19/22 23:59 Dose: 0 unit/min, 0 mls/hr Sodium Chloride (Sodium Chloride 0.9%) 1,000 mls @ 150 mls/hr IV .Q6H40M [facility] Last Admin: 12/18/22 19:25 Dose: Not Given Meropenem 1,000 mg/ Sodium (Chloride) 50 mls @ 100 mls/hr IV Q8H [facility]; Protocol Last Admin: 12/19/22 14:36 Dose: Not Given Vancomycin/PEG/NADA/Lysine/Water (Vancocin) 1,500 mg in 300 mls @ 200 mls/hr IV Q12H [facility] Last Admin: 12/19/22 14:36 Dose: Not Given Heparin Sodium/Sodium Chloride (Heparin Drip) 25,000 unit in 500 mls @ 0 mls/hr IV .Q0M [facility]; Protocol Sodium Chloride (Sodium Chloride 0.9%) 1,000 mls @ 999 mls/hr IV .Q1H1M ONE Stop: 12/18/22 08:54 Last Infusion: 12/18/22 09:20 Dose: Infused Sodium Chloride (Sodium Chloride 0.9%) 500 mls @ 999 mls/hr IV .Q31M ONE Stop: 12/18/22 08:24 Last Infusion: 12/18/22 10:32 Dose: Infused Albumin Human (Albumin) Confirm Administered Dose 12.5 gm in 250 mls @ as directed .ROUTE .STK-MED ONE Stop: 12/18/22 10:14 Epinephrine HCl 2.5 mg/ Sodium (Chloride) 252.5 mls @ 0 mls/hr IV .Q0M [facility]; Protocol Last Titration: 12/19/22 14:25 Dose: 0 mcg/min, 0 mls/hr Octreotide Acetate 500 mcg/ (Sodium Chloride) 101 mls @ 10.1 mls/hr IV .Q10H [facility] Last Admin: 12/21/22 23:58 Dose: 50 mcg/hr, 10.1 mls/hr Fentanyl 1,000 mcg/ Sodium (Chloride) 100 mls @ 0 mls/hr IV .Q0M [facility]; Protocol Last Titration: 12/20/22 19:34 Dose: Infused Midazolam HCl 100 mg/ Sodium (Chloride) 100 mls @ 0 mls/hr IV .Q0M [facility]; Protocol Last Titration: 12/20/22 18:17 Dose: 0 mg/hr, 0 mls/hr Sodium Bicarbonate 100 meq/ (Dextrose) 1,100 mls @ 100 mls/hr IV .Q11H [facility] Last Infusion: 12/19/22 08:29 Dose: 0 mls/hr Insulin Human Regular 10 unit/ (N/A) 0.1 mls @ 0 mls/hr IVP ONCE ONE Stop: 12/18/22 19:57 Last Admin: 12/18/22 20:14 Dose: 10 mls/hr Dextrose (D5w) 500 mls @ 100 mls/hr IV ONCE PRN; Protocol PRN Reason: Adult Acute Hypoglycemia Prot Insulin Human Regular 250 unit (/ Sodium Chloride) 252.5 mls @ 0 mls/hr IV .Q0M [facility]; Protocol Last Titration: 12/20/22 10:00 Dose: 0 mls/hr, 0 mls/hr Calcium Gluconate/Sodium Chloride (Calcium Gluconate 0.9% Nacl) 1 gm in 50 mls @ 100 mls/hr IV Q30M [facility] Stop: 12/18/22 22:44 Last Infusion: 12/18/22 22:59 Dose: Infused Bumetanide 25 mg/ N/A 100 mls @ 4 mls/hr IV .Q24H [facility] Sodium Chloride (Sodium Chloride 0.9%) 1,000 mls @ 150 mls/hr IV .Q6H40M [facility] Last Infusion: 12/20/22 18:17 Dose: 0 mls/hr Bumetanide 12.5 mg/ N/A 50 mls @ 4 mls/hr IV .[id number] [facility] Last Infusion: 12/19/22 15:45 Dose: Infused Meropenem 1,000 mg/ Sodium (Chloride) 50 mls @ 100 mls/hr IV Q12H [facility]; Protocol Last Infusion: 12/22/22 00:46 Dose: Infused Vancomycin/PEG/NADA/Lysine/Water (Vancocin) 1,500 mg in 300 mls @ 200 mls/hr IV Q24H [facility] Last Infusion: 12/21/22 03:37 Dose: Infused Magnesium Sulfate (Magnesium Sulfate Premix) 2 gm in 50 mls @ 50 mls/hr IV ONCE ONE Stop: 12/19/22 20:51 Last Infusion: 12/20/22 08:09 Dose: Infused Potassium Chloride (K-Gregorio) 100 mls @ 25 mls/hr IV ONCE ONE Stop: 12/20/22 06:12 Last Infusion: 12/20/22 08:08 Dose: Infused Sodium Chloride (Sodium Chloride 0.9%) 1,000 mls @ 75 mls/hr IV .[id number] [facility] Lidocaine HCl 5 ml/ Potassium (Chloride) 105 mls @ 52.5 mls/hr IV ONCE ONE Stop: 12/21/22 06:49 Last Infusion: 12/21/22 18:13 Dose: Infused Vancomycin/PEG/NADA/Lysine/Water (Vancocin) 1,500 mg in 300 mls @ 200 mls/hr IV Q12H [facility] Last Infusion: 12/21/22 18:11 Dose: Infused Lidocaine HCl 5 ml/ Potassium (Chloride) 105 mls @ 26.25 mls/hr IV ONCE ONE Stop: 12/21/22 15:49 Last Infusion: 12/21/22 18:13 Dose: Infused Lidocaine HCl 5 ml/ Potassium (Chloride) 105 mls @ 26.25 mls/hr IV ONCE ONE Stop: 12/22/22 12:20 Last Admin: 12/22/22 09:27 Dose: 26.25 mls/hr Lidocaine HCl 5 ml/ Potassium (Chloride) 105 mls @ 26.25 mls/hr IV ONCE ONE Stop: 12/23/22 12:29 Last Admin: 12/23/22 08:24 Dose: 26.25 mls/hr Iohexol (Iohexol 350 Mg/Ml 500 Ml Btl (Per Ml)) 0 ml IV ONCE ONE Stop: 12/17/22 23:55 Last Admin: 12/17/22 23:55 Dose: 100 ml Ketamine HCl (Ketamine 100 Mg/Ml Inj 5 Ml) Confirm Administered Dose 500 mg .ROUTE .STK-MED ONE Stop: 12/18/22 10:54 Meropenem (Meropenem 1,000 Mg Sdv) Confirm Administered Dose 1,000 mg .ROUTE .STK-MED ONE Stop: 12/22/22 00:10 Methylprednisolone Sodium Succinate (Methylprednisolone Sod Succ 125 Mg/2 Ml Inj) 125 mg IV ONCE ONE Stop: 12/17/22 22:41 Last Admin: 12/17/22 22:58 Dose: 125 mg Midazolam HCl (Midazolam 1 Mg/Ml Inj 2 Ml) Confirm Administered Dose 2 mg .ROUTE .STK-MED ONE Stop: 12/18/22 09:56 Midazolam HCl (Midazolam 1 Mg/Ml Inj 2 Ml) Confirm Administered Dose 2 mg .ROUTE .STK-MED ONE Stop: 12/18/22 11:12 Midazolam HCl (Midazolam 1 Mg/Ml Inj 2 Ml) Confirm Administered Dose 2 mg .ROUTE .STK-MED ONE Stop: 12/18/22 11:50 Morphine Sulfate (Morphine 4 Mg/Ml Sdv 1 Ml) 2 mg IVP Q4H PRN PRN Reason: SEVERE PAIN Last Admin: 12/19/22 06:22 Dose: 2 mg Norepinephrine Bitartrate (Norepinephrine 1 Mg/Ml Sdv 4 Ml) Confirm Administered Dose 4 mg .ROUTE .STK-MED ONE Stop: 12/18/22 10:14 Ondansetron HCl (Ondansetron 2 Mg/Ml Sdv 2 Ml) 4 mg IVP ONCE ONE Stop: 12/17/22 22:48 Last Admin: 12/17/22 22:58 Dose: 4 mg Ondansetron HCl (Ondansetron 2 Mg/Ml Sdv 2 Ml) Confirm Administered Dose 4 mg .ROUTE .STK-MED ONE Stop: 12/18/22 09:56 Oxycodone HCl (Oxycodone 5 Mg Ir Tab/Cap) 5 mg PO Q8H PRN PRN Reason: PAIN Pantoprazole Sodium (Pantoprazole Dr 40 Mg Tablet) 40 mg PO DAILY [facility] Last Admin: 12/18/22 08:21 Dose: Not Given Pantoprazole Sodium (Pantoprazole 40 Mg Sdv) 40 mg IVP Q12H [facility] Last Admin: 12/22/22 13:11 Dose: 40 mg Propofol (Propofol 10 Mg/Ml Sdv 20 Ml) Confirm Administered Dose 200 mg .ROUTE .STK-MED ONE Stop: 12/18/22 09:56 Rocuronium Fleming (Rocuronium 10 Mg/Ml Inj 5ml) Confirm Administered Dose 50 mg .ROUTE .STK-MED ONE Stop: 12/18/22 09:56 Ropinirole HCl (Ropinirole 1 Mg Tablet) 1 mg PO BEDTIME [facility] Sodium Bicarbonate (Sodium Bicarbonate 8.4% 1 Meq/Ml 50ml Syr) 150 meq IVP ONCE ONE Stop: 12/18/22 09:23 Last Admin: 12/18/22 09:56 Dose: 150 meq Sodium Bicarbonate (Sodium Bicarbonate 8.4% 1 Meq/Ml 50ml Syr) 150 meq IVP ONCE ONE Stop: 12/18/22 14:15 Last Admin: 12/18/22 15:06 Dose: 150 meq Sodium Bicarbonate (Sodium Bicarbonate 8.4% 1 Meq/Ml 50ml Syr) 50 meq .ROUTE .STK-MED ONE Stop: 12/18/22 17:01 Sodium Bicarbonate (Sodium Bicarbonate 8.4% 1 Meq/Ml 50ml Syr) 50 meq IVP ONCE ONE Stop: 12/18/22 20:20 Last Admin: 12/18/22 20:23 Dose: 50 meq Sodium Chloride (Sodium Chloride 3.5% Neb 4 Ml Neb) 4 ml INHALATION BID.RESPIRATORY [facility] Last Admin: 12/23/22 07:52 Dose: 4 ml Succinylcholine Chloride (Succinylcholine 20 Mg/Ml Sdv 10ml) Confirm Administered Dose 200 mg .ROUTE .STK-MED ONE Stop: 12/18/22 09:56 Succinylcholine Chloride (Succinylcholine 20 Mg/Ml Sdv 10ml) Confirm Administered Dose 200 mg .ROUTE .STK-MED ONE Stop: 12/23/22 08:53 Succinylcholine Chloride (Succinylcholine 20 Mg/Ml Sdv 10ml) 100 mg IVP NOW ONE Stop: 12/23/22 08:57 Last Admin: 12/23/22 09:02 Dose: 100 mg Succinylcholine Chloride (Succinylcholine 20 Mg/Ml Sdv 10ml) 100 mg IVP NOW ONE Stop: 12/23/22 09:30 Vasopressin (Vasopressin 20 Unit/Ml Inj) Confirm Administered Dose 20 unit .ROUTE .STK-MED ONE Stop: 12/18/22 10:14 Allergies No Known Allergies Allergy (Verified 12/16/22 13:55) Home Medications aspirin 81 mg tablet,delayed release (Adult Aspirin Regimen) 81 mg PO DAILY 11/08/19 [History Confirmed 12/18/22] cholecalciferol (vitamin D3) 100 mcg (4,000 unit) capsule 2,000 unit PO DAILY 11/08/19 [History Confirmed 12/18/22] hydrochlorothiazide 25 mg tablet 25 mg PO QAM 11/08/19 [History Confirmed 12/18/22] multivitamin 1 cap PO QAM 11/08/19 [History Confirmed 12/18/22] onabotulinumtoxinA 100 unit solution for injection (Botox) 155 unit SUBCUT .Q12WKS 11/08/19 [History Confirmed 12/18/22] oxycodone 5 mg capsule 5 mg PO Q6H PRN Pain 11/08/19 [History Confirmed 12/18/22] propranolol 160 mg capsule,24 hr,extended release 160 mg PO DAILY 11/08/19 [History Confirmed 12/18/22] ropinirole 1 mg tablet 1 mg PO DAILY 11/08/19 [History Confirmed 12/18/22] ubrogepant 100 mg tablet (Ubrelvy) 100 mg PO ONCE PRN migraine headache #16 tabs 03/25/22 [Rx Confirmed 12/18/22] triamcinolone acetonide 0.1 % topical cream 1 applic topical TID #80 grams 04/19/22 [Rx Confirmed 12/18/22] Compression Socks- 3 Pairs #1 ea 08/09/22 [Rx Confirmed 12/18/22] acyclovir 200 mg capsule 400 mg PO .5 TIMES DAILY 12/18/22 [History Confirmed 12/18/22] albuterol sulfate 90 mcg/actuation aerosol inhaler 2 puff inhalation Q6H PRN Shortness Of Breath 12/18/22 [History Confirmed 12/18/22] amitriptyline 25 mg tablet 25 mg PO DAILY 12/18/22 [History Confirmed 12/18/22] folic acid 1 mg tablet 1 mg PO DAILY 12/18/22 [History Confirmed 12/18/22] vitamin E acetate 134 mg (200 unit) capsule 268 mg PO DAILY 12/18/22 [History Confirmed 12/18/22] Discharge Plan Discharge Patient Disposition: Home Condition: Stable Prescriptions: Continued oxycodone 5 mg capsule 5 mg PO Q6H PRN (Reason: Pain) cholecalciferol (vitamin D3) 4,000 unit capsule 2,000 unit PO DAILY Botox 100 unit recon soln 155 unit SUBCUT .Q12WKS multivitamin Capsule 1 cap PO QAM aspirin [Adult Aspirin Regimen] 81 mg tablet,delayed release (DR/EC) 81 mg PO DAILY hydrochlorothiazide 25 mg tablet 25 mg PO QAM propranolol 160 mg capsule,extended release 24 hr 160 mg PO DAILY ropinirole 1 mg tablet 1 mg PO DAILY triamcinolone acetonide 0.1 % cream 1 applic topical TID Qty: 80 2RF Ubrelvy 100 mg tablet 100 mg PO ONCE PRN (Reason: migraine headache) Qty: 16 2RF Rx Instructions: Take 1 tablet at the start of a migraine, as needed (DME) Compression Socks- 3 Pairs See Rx Instructions .Route .MEDSUPPLY Qty: 1 0RF Rx Instructions: as directed amitriptyline 25 mg tablet 25 mg PO DAILY folic acid 1 mg tablet 1 mg PO DAILY acyclovir 200 mg capsule 400 mg PO .5 TIMES DAILY albuterol sulfate 90 mcg/actuation HFA aerosol inhaler 2 puff INHALATION Q6H PRN (Reason: Shortness Of Breath) vitamin E acetate 134 mg (200 unit) Capsule 268 mg PO DAILY Referrals: Calderon Montgomery DO [Primary Care Provider] - Transfer Attestations Time Spent in Transfer Care: critical care time Critical Care Time (min): 90 Quality Metrics Clinical Quality Measures [ No reported AMI, CVA or VTE this stay] Coding Level of Care Code Critical Care >/= 30 minutes Diagnoses Acute kidney injury N17.9 Septic shock A41.9; R65.21 Community acquired pneumonia J18.9 Hyperbilirubinemia E80.6
[2022-12-23 12:54] LABS: SARS Covid-2 Antigen negative (Negative)
[2022-12-23 14:22] LABS: Vancomycin Trough 12.9 ug/mL (10-15)
[2022-12-23 14:25] LABS: Anion Gap 11.1 (5-19); Blood Urea Nitrogen 36 mg/dL (6-20); Carbon Dioxide 37 mmol/L (22-29); Chloride 104 mmol/L (98-107); Glomerular Filtration Rate 115.8 mL/min (90-130); Glucose 159 mg/dL (65-115); Osmolality Calculated 320 mOsm/kg (285-295); Potassium 3.1 mmol/L (3.5-5.1); Sodium 149 mmol/L (136-145)
--- NOTE | 2022-12-23 15:29 | PC.NURSE ---
Report called to [facility] in [place] Priscilla, is the nurse accepting care of patient in CCU- 43. EMS transport in care of patient at 1453. Patient belongings taken home by patients mother at bedside.
== END 2022-12-23 14:52 | disposition short-term general hospital (02) | DRG 853 ==
LOC: ER 23:33 → ICU 12-18 01:54
PROVIDERS: Student in an Organized Health Care Education/Training Program; Surgery; Admitting Provider Student in an Organized Health Care Education/Training Program; Emergency Provider Emergency Medicine; PCP Emergency Medicine Emergency Medical Services; Visit Provider Internal Medicine
PROC: 0FT44ZZ Resection of Gallbladder, Percutaneous Endoscopic Approach (ICD-10-PCS; CPT 47562; principal; 2022-12-18 10:30)
DX: A41.9 Sepsis, unspecified organism (principal); E11.10 Type 2 diabetes mellitus with ketoacidosis without coma; I50.23 Acute on chronic systolic (congestive) heart failure; J96.01 Acute respiratory failure with hypoxia; R65.21 Severe sepsis with septic shock; N17.0 Acute kidney failure with tubular necrosis; K72.00 Acute and subacute hepatic failure without coma; I21.A1 Myocardial infarction type 2; K81.0 Acute cholecystitis; K83.09 Other cholangitis; I13.0 Hypertensive heart and chronic kidney disease with heart failure and stage 1 through stage 4 chronic kidney disease, or unspecified chronic kidney disease; Z68.42 Body mass index [BMI] 45.0-49.9, adult; E87.0 Hyperosmolality and hypernatremia; G43.709 Chronic migraine without aura, not intractable, without status migrainosus; H54.8 Legal blindness, as defined in USA; K74.60 Unspecified cirrhosis of liver; N18.9 Chronic kidney disease, unspecified; E11.22 Type 2 diabetes mellitus with diabetic chronic kidney disease; K76.81 Hepatopulmonary syndrome; E87.6 Hypokalemia; D64.9 Anemia, unspecified; K75.81 Nonalcoholic steatohepatitis (NASH); E87.5 Hyperkalemia; Z66 Do not resuscitate; I95.9 Hypotension, unspecified; J61 Pneumoconiosis due to asbestos and other mineral fibers; Z77.090 Contact with and (suspected) exposure to asbestos; Z79.51 Long term (current) use of inhaled steroids; Z79.891 Long term (current) use of opiate analgesic; Z79.82 Long term (current) use of aspirin; E66.01 Morbid (severe) obesity due to excess calories; D69.59 Other secondary thrombocytopenia
CPT/HCPCS: 36415; 36416; 36600; 51702; 71045; 71275; 74177; 76705; 80048; 80051; 80053; 80061; 80202; 80306; 81001; 82248; 82330; 82436; 82533; 82570; 82803; 82805; 82962; 83010; 83036; 83540; 83550; 83605; 83615; 83690; 83735; 83880; 84133; 84145; 84300; 84443; 84484; 85007; 85014; 85018; 85025; 85049; 85362; 85378; 85384; 85610; 85730; 85999; 86705; 86706; 86709; 86803; 86850; 86880; 86900; 87040; 87070; 87075; 87205; 87340; 87426; 87486; 87581; 87631; 87633; 87641; 93005; 93306; 93970; 94002; 94003; 94640; 94799; 96365; 96366; 96367; 96372; 96375; 96376; 99291; 99292; A4570; C9113; J0171; J0330; J0610; J1100; J1450; J1644; J1720; J1815; J1940; J2185; J2250; J2270; J2354; J2405; J2543; J2704; J2930; J3010; J3370; J3475; J3480; J3490; J7030; J7040; J7050; J7060; J7070; J7608; J7613; P9045; P9046; Q9967